=== PATIENT | female | born 1950 | race Caucasian/White ===

== ENCOUNTER → 2016-04-25 | Day surgery (SDC) | payer MEDICARE, OTHER ==
[~2016-04-25] MED LIST: ALBUTEROL SULFATE 2.5 MG/3 ML NEBU. NEB ONE; BUPR100T11 PO; FLUO40CA2 PO; IV RINGERS,LACTATED 1000ML 1,000 ML IV ONE; PROPOFOL 20 ML IV ONE; ZOLP10TA PO
[2016-04-25 13:11] LABS: BASO # 0.1 x10^3/uL (0.0-0.2); BASO % 1 % (0-3); EOS % 2 % (0-3); HEMATOCRIT 39.1 % (36.0-47.0); HEMOGLOBIN 12.8 g/dL (12.0-15.5); LYMPH # 1.2 x10^3/uL (1.0-4.8); LYMPH % 11 % (24-48); MEAN CORPUSCULAR HEMOGLOBIN 31 pg (25-35); MEAN CORPUSCULAR HGB CONC 33 g/dL (31-37); MEAN CORPUSCULAR VOLUME 94 fL (79-100); MONO % 7 % (0-9); NEUT % 79 % (31-73); PLATELET COUNT 434 x10^3/uL (140-400); RED BLOOD COUNT 4.18 x10^6/uL (3.50-5.40); RED CELL DISTRIBUTION WIDTH 13.5 % (11.5-14.5); WHITE BLOOD COUNT 11.1 x10^3/uL (4.0-11.0)
[2016-04-25 13:21] LABS: INR 1.1 (0.8-1.1); PROTHROMBIN TIME PATIENT 13.8 SEC (11.7-14.0)
[2016-04-25 13:58] VITALS: BP 162/88
--- NOTE | 2016-04-25 18:50 | OP ---
DATE OF SURGERY: 04/25/2016 PROCEDURE: Bronchoscopy. INDICATIONS: Lung mass. DESCRIPTION OF PROCEDURE: Informed consent was obtained from the patient. All risks and benefits were explained. She agreed to proceed with the procedure. Propofol was used by anesthesia for sedation. Bronchoscope was introduced through the right nostril. The upper area was passed. Vocal cords moved equally with respiration. The trachea was entered. No tracheal lesions seen. The genevieve was sharp. Right lung was examined first. Minimal white secretions seen in the right main stem bronchus. All subsegments of right upper, right middle and right lower lobe were examined. No endobronchial lesions seen. Bronch was then introduced into the left lung. Upon inspection of the left upper lobe and lingula, the mucosa was severely inflamed and even with the touch of the scope, it was oozing blood. Likewise, the opening of the left lower lobe, mucosa was also severely inflamed and very erythematous. Bronchoalveolar lavage performed from the lingula and from the left lower lobe. Cytology brush x 2 was performed from the lingular opening. Both the openings of left lingula and left lower lobe were narrowed, but no definite endobronchial occlusion seen. The patient tolerated the procedure well. IMPRESSION: 1. Abnormal mucosa involving the lingula and the opening of the left lower lobe. It was severely inflamed and swollen. The possibility of submucosal cancer cannot be ruled out. Cytology brush x 2 and bronchoalveolar lavage from the lingula and left lower lobe were performed. 2. The patient to follow the results of the bronchoscopy with Dr. Ovalle. 3. If the bronchoscopy is nondiagnostic and if radiographic appearance is not improved, then the patient may need CT-guided biopsy. TINO AGOSTO MD DR: MARVA/kandy JOB#: [id number] / [id number]
--- NOTE | 2016-05-01 13:10 | PATHOLOGY ---
CYTOPATHOLOGY REPORT CLINICAL HISTORY: Lung mass. SPECIMEN(S) RECEIVED: A.Bronchoalveolar lavage, Lingula B.Bronchoalveolar lavage, LLL C.Bronchial brushing, NOS D.Bronchial brush rinse, NOS FINAL DIAGNOSIS: A. Lingula bronchoalveolar lavage, ThinPrep: - MALIGNANT CELLS IDENTIFIED HAVING CELLULAR FEATURES OF NON-SMALL CELL CARCINOMA. B. Left lower lobe bronchoalveolar lavage, ThinPrep: - MALIGNANT CELLS IDENTIFIED HAVING CELLULAR FEATURES OF NON-SMALL CELL CARCINOMA. C. Bronchial brushing, smears: - MALIGNANT CELLS IDENTIFIED HAVING CELLULAR FEATURES OF NON-SMALL CELL CARCINOMA. D. Bronchial brush rinse, ThinPrep: - MALIGNANT CELLS IDENTIFIED HAVING CELLULAR FEATURES OF NON-SMALL CELL CARCINOMA. COMMENT: The case is also examined by Dr. Prashanth Hodge, cytopathologist with Pathology, who concurs with the diagnosis. (JPM:; d/t: 05/01/16) PATHOLOGIST: Dario Craig M.D. REPORT ELECTRONICALLY SIGNED BY: Dario Craig M.D. DATE/TIME: 05/01/2016 13:09 GROSS PATHOLOGY: A. Bronchoalveolar lavage, Lingula: The specimen is submitted unfixed, labeled "Tevebaugh, Annajo". Received by the Cytology Department is four mL of clear colorless fluid. One ThinPrep slide was prepared. B. Bronchoalveolar lavage, LLL: The specimen is submitted unfixed, labeled "Tevebaugh, Annajo". Received by the Cytology Department is three mL of clear colorless fluid. One ThinPrep slide was prepared. C. Bronchial brushing, NOS: The specimen is labeled "Tevebaugh, Annajo" and consists of two fixed slides. D. Bronchial brush rinse, NOS: The specimen is labeled "Tevebaugh, Annajo" and consists of a brush tip in fixative. One ThinPrep slide was prepared. (clt 04.25.2016) LEGAL COMPLIANCE OFFICER(S): KAVITHA Colvin([facility]) INITIAL CPT CODE(S): A; 07669 B; 58828 C; 58581 D; 20811 Professional services performed by [facility] at [facility] [address] [place] [address] Technical services performed by [facility] at [address] [place] [address], [address], [place] [address]. PATIENT: TONIO CARROLL /AGE: 10 1950 (Age: 65) SEX: F PATIENT #: [id number] ALT CASE #: SPECIMEN COLLECTION DATE: 04/25/2016 SPECIMEN RECEIVED DATE: 04/25/2016 [facility] [address], [address] [place] [address] PHONE: [phone] DIRECTOR: Ned Quintero M.D. * * * END OF REPORT * * *
== END | disposition home or self-care (01) ==
LOC: SURG 11:46
PROVIDERS: ATTEND Internal Medicine Critical Care Medicine
DX: R91.8 Other nonspecific abnormal finding of lung field (principal); K21.9 Gastro-esophageal reflux disease without esophagitis; F41.9 Anxiety disorder, unspecified; F32.9 Major depressive disorder, single episode, unspecified; Z87.39 Personal history of other diseases of the musculoskeletal system and connective tissue; Z79.01 Long term (current) use of anticoagulants
CPT/HCPCS: 31624; 36415; 85027; 85610; 85730; 87070; 87102; 87116; 87205; 88104; 88112; 94640; J2704; 31622

== ENCOUNTER → 2016-05-02 | Outpatient (CLI) | payer MEDICARE, OTHER ==
[2016-04-25 13:58] VITALS: BP 162/88
[~2016-05-02] MED LIST changes: -ALBUTEROL SULFATE 2.5 MG/3 ML NEBU. NEB ONE; -IV RINGERS,LACTATED 1000ML 1,000 ML IV ONE; -PROPOFOL 20 ML IV ONE
== END | disposition home or self-care (01) ==
LOC: PF 09:47
PROVIDERS: ATTEND Internal Medicine Pulmonary Disease
DX: R06.02 Shortness of breath (principal)
CPT/HCPCS: 94060; 94729

== ENCOUNTER → 2016-05-10 | Outpatient (CLI) | payer MEDICARE, OTHER ==
[~2016-05-10] MED LIST changes: +ALBU0.63 NEB; +FENT1PAT89 TD; +HYDR-2678 PO; +MULT-691 PO; +PROAIR HFA8.5 GM INH
--- NOTE | 2016-05-10 10:15 | RAD ---
Indication lung nodule. PA and lateral views of the chest were obtained. No prior imaging of the chest is available. There are suspect background changes of emphysema. There is moderately extensive infiltrate, compatible with pneumonia, in the left lower lobe. A focal infiltrate in the right lung is not seen. The heart and pulmonary vessels are within normal limits. There may be a small left pleural effusion. Partially atelectatic left lung is suspect. There is some deviation of the trachea to the left. There is moderate compression of an upper thoracic vertebral body segment the chronicity of which is uncertain IMPRESSION: Infiltrate, compatible with pneumonia, in the left lower lobe. Follow-up imaging, to resolution, advised Moderate compression associated with an upper thoracic vertebral body segment the chronicity of which is not certain
[2016-05-18 03:00] VITALS: BP 148/90
== END | disposition home or self-care (01) ==
LOC: PETSC 08:00 → MERGE 05-17 13:00
PROVIDERS: ATTEND Internal Medicine Pulmonary Disease
DX: R91.1 Solitary pulmonary nodule (principal)
CPT/HCPCS: 71020

== ENCOUNTER → 2016-05-10 | Outpatient (CLI) | payer MEDICARE, OTHER ==
[2016-04-25 13:58] VITALS: BP 162/88
[~2016-05-10] MED LIST changes: -ALBU0.63 NEB; -FENT1PAT89 TD; -HYDR-2678 PO; -MULT-691 PO; -PROAIR HFA8.5 GM INH
--- NOTE | 2016-05-10 14:20 | RAD ---
Indication lung nodule. PET/CT was performed from the skull through the proximal thigh. CT was performed primarily for localization and attenuation purposes as opposed to primary diagnostic purposes. Blood sugar during the examination was 92. 13.4 mCi of FDG was administered. No prior PET/CT imaging is available. On CT the visualized brain is unremarkable. No significant finding is apparent in the neck. There is dense consolidation or mass in the left lower lobe measuring approximately 5 cm in greatest dimension. (A mass as opposed to consolidated pneumonia is favored as there are no air bronchograms). There is a patchy infiltrate in the aerated left lower lobe suggesting postobstructive pneumonitis. Moderate narrowing of the left distal mainstem bronchus is noted. There are multiple pulmonary nodules seen in the left upper lobe. Occasional nodules are seen in the right upper lobe. Background emphysematous changes are noted. There are moderately enlarged lymph nodes in the aorticopulmonary window as well as in the pretracheal space. Subcarinal adenopathy is also suggested. There is suggested lytic metastatic disease seen associated with upper thoracic vertebral body segments. A significant finding in the abdomen or pelvis is not seen. On PET there is normal FDG activity in the visualized brain. There are markedly avid FDG lymph nodes at the base of the neck, at each thoracic inlet. Maximum SUV approximately 7.7 . Markedly avid mediastinal lymph nodes are seen. These are seen in the pretracheal space and in the subcarinal space. The mass in the left lower lobe is markedly FDG avid. Maximum SUV is approximately 13. More peripherally in the lower lobe where there is volume loss there is also significant FDG activity. FDG in this area is approximately 11.6. These findings more peripherally in the left lower lobe may represent neoplastic disease infection or combination of the 2. Nodules, seen on CT in the left upper lobe, are moderately FDG avid with SUVs of approximately 3.5. These may be infectious or neoplastic in nature. There are scattered foci of FDG activity in the visualized skeleton. There is a focus of increased FDG activity in the left humeral head as well as in at least 2 upper thoracic vertebral body segments. There is markedly increased uptake in a right lower lateral rib suggesting metastatic disease. Both adrenal glands are markedly FDG avid compatible with metastatic disease. There are foci of increased activity behind the body of the stomach likely reflecting metastatic disease in lymph nodes. Several foci of increased activity are seen in the bony pelvis and lumbar spine compatible with metastatic disease. There is significantly increased activity in the body of the stomach. The etiology for this uptake is not certain. IMPRESSION: Findings most compatible with a large primary neoplasm in the left lower lobe with widespread metastatic disease to the mediastinum, bones, adrenal glands and abdominal lymph nodes. Increased FDG activity distal to the solid mass in the left lower lobe may represent tumor, infection or a combination of the two
== END | disposition home or self-care (01) ==
LOC: PETSC 11:00
PROVIDERS: ATTEND Internal Medicine Pulmonary Disease
DX: C78.1 Secondary malignant neoplasm of mediastinum (principal)
CPT/HCPCS: 78815; A9552

== ENCOUNTER 2016-05-17 15:17 | Inpatient (IN) | payer MEDICARE, OTHER ==
[~2016-05-17] VITALS: Ht 162.6 cm; Wt 58.3 kg
[~2016-05-17 15:17] MED LIST changes: +ALBU0.63 NEB; +FENT1PAT89 TD; +HYDR-2678 PO; +PROAIR HFA8.5 GM INH
[2016-05-17] MEDS ORDERED: IV NORMAL SALINE 1000ML BAG 1,000 ML IV SCH (15:44)
[2016-05-17] MEDS ORDERED: IPRATRPIUM/ALBUTEROL 0.5/2.5MG 3 ML NEBU. NEB ONE (15:45)
[2016-05-17] MEDS ORDERED: methylPREDNISolone SOD SUCC PF 125 MG/2 ML VIAL. IV ONE (15:45)
--- NOTE | 2016-05-17 15:50 | PHYS DOC ---
Past Medical History Past Medical History: Anxiety, Bronchitis, Cancer, COPD, Depression Additional Past Medical Histor: stage 4 lung cancer Past Surgical History: Tonsillectomy Alcohol Use: None Drug Use: None Adult General Chief Complaint Chief Complaint: SHORTNESS OF BREATH HPI HPI Patient is a 65 year old female who presents with complaint shortness of breath. Patient states her symptoms started worsening yesterday. Patient states that she is recently diagnosed with lung carcinoma and has been following with Dr. Williamson. Patient presented to Dr. Williamson's office with significant shortness of breath. Patient was found to be hypoxic on room air and was sent to the emergency department for further treatment. The patient admits to a 50-pack- year history of tobacco use. Patient also states that she was recently diagnosed with emphysema. Patient has not had any fevers. Patient has had nonproductive cough. Patient denies pain at rest but states that with movement she has been having pain along the upper portion of her abdomen. Patient has not taken any medications to help with her symptoms. Review of Systems Review of Systems Constitutional: Denies fever or chills [] Eyes: Denies change in visual acuity, redness, or eye pain [] HENT: Denies nasal congestion or sore throat [] Respiratory: Cough, shortness of breath [] Cardiovascular: Denies chest pain or edema [] GI: Abdominal pain, denies nausea, vomiting, bloody stools or diarrhea [] : Denies dysuria or hematuria [] Musculoskeletal: Denies back pain or joint pain [] Integument: Denies rash or skin lesions [] Neurologic: Denies headache, focal weakness or sensory changes [] Current Medications Current Medications Current Medications Medications (Trade) Dose Ordered Sig/Yaz Start Time Stop Time Status Last Admin Dose Admin Acetaminophen/ Hydrocodone Bitart (Lortab 5/325) may give max of 8 pills/day PRN Q4HRS PRN 05/17/16 16:15 05/17/16 16:34 2 TAB Albuterol/ Ipratropium (Duoneb) 3 ml RTQID 05/17/16 20:00 05/18/16 19:59 Methylprednisolone Sodium Succinate (Solu-Medrol 40mg Vial) 60 mg Q6HRS 05/17/16 18:00 Methylprednisolone Sodium Succinate (Solu-Medrol 125mg Vial) 125 mg 1X ONCE 05/17/16 15:45 05/17/16 15:49 DC 05/17/16 16:05 125 MG Ondansetron HCl 4 mg 4 mg PRN Q8HRS PRN 05/17/16 17:00 05/18/16 16:59 Sodium Chloride (Iv Sodium Chloride 0.9% 1000ml Bag) 1,000 ml @ 100 mls/hr Q10H 05/17/16 16:46 05/18/16 16:45 Allergies Allergies Allergies Coded Allergies Type Severity Reaction Last Updated Verified No Known Drug Allergies 04/25/16 No Physical Exam Physical Exam Constitutional: Alert, afebrile, appears in mild respiratory distress. [] HENT: Normocephalic, atraumatic, bilateral external ears normal, oropharynx moist, no oral exudates, nose normal. [] Eyes: PERRLA, EOMI, conjunctiva normal, no discharge. [] Neck: Normal range of motion, no tenderness, supple, no stridor. [] Cardiovascular: Tachycardia, regular rhythm, no murmur [] Lungs & Thorax: Moderate restriction of air movement bilaterally, expiratory wheezes bilaterally, no rales [] Abdomen: Bowel sounds normal, soft, mild epigastric tenderness to palpation, no guarding or rebound tenderness, no masses, no pulsatile masses. [] Skin: Warm, dry, no erythema, no rash. [] Back: No tenderness, no CVA tenderness. [] Extremities: No tenderness, no cyanosis, no clubbing, ROM intact, no edema. [] Neurologic: Alert and oriented X 3, normal motor function, normal sensory function, no focal deficits noted. [] Current Patient Data Vital Signs Vital Signs Date Time Temp Pulse Resp B/P Pulse Ox O2 Delivery O2 Flow Rate FiO2 05/17/16 16:30 98 20 193/91 94 Nasal Cannula 2 05/17/16 15:33 98.1 98.1 Lab Values Laboratory Tests Test 05/17/16 13:55 05/17/16 15:59 White Blood Count 18.6x10^3/uL (4.0-11.0) H Red Blood Count 3.73x10^6/uL (3.50-5.40) Hemoglobin 11.3g/dL (12.0-15.5) L Hematocrit 35.2% (36.0-47.0) L Mean Corpuscular Volume 94fL (79-100) Mean Corpuscular Hemoglobin 30pg (25-35) Mean Corpuscular Hemoglobin Concent 32g/dL (31-37) Red Cell Distribution Width 14.1% (11.5-14.5) Platelet Count 433x10^3/uL (140-400) H Neutrophils (%) (Auto) 87% (31-73) H Lymphocytes (%) (Auto) 6% (24-48) L Monocytes (%) (Auto) 7% (0-9) Eosinophils (%) (Auto) 1% (0-3) Basophils (%) (Auto) 0% (0-3) Neutrophils # (Auto) 16.1x10^3uL (1.8-7.7) H Lymphocytes # (Auto) 1.0x10^3/uL (1.0-4.8) Monocytes # (Auto) 1.3x10^3/uL (0.0-1.1) H Eosinophils # (Auto) 0.1x10^3/uL (0.0-0.7) Basophils # (Auto) 0.1x10^3/uL (0.0-0.2) Segmented Neutrophils % 84% (35-66) H Band Neutrophils % 2% (0-9) Lymphocytes % 7% (24-48) L Monocytes % 4% (0-10) Eosinophils % 1% (0-5) Basophils % 2% (0-3) Platelet Estimate Increased (ADEQUATE) Sodium Level 138mmol/L (136-145) Potassium Level 4.2mmol/L (3.5-5.1) Chloride Level 102mmol/L (98-107) Carbon Dioxide Level 25mmol/L (21-32) Anion Gap 11 (6-14) Blood Urea Nitrogen 21mg/dL (7-20) H Creatinine 1.0mg/dL (0.6-1.0) Estimated GFR (Cockcroft-Gault) 55.5 BUN/Creatinine Ratio 21 (6-20) H Glucose Level 105mg/dL (70-99) H Lactic Acid Level 1.4mmol/L (0.4-2.0) Calcium Level 9.4mg/dL (8.5-10.1) Total Bilirubin 0.3mg/dL (0.2-1.0) Aspartate Amino Transferase (AST) 101U/L (15-37) H Alanine Aminotransferase (ALT) 88U/L (14-59) H Alkaline Phosphatase 207U/L (46-116) H Total Protein 6.0g/dL (6.4-8.2) L Albumin 2.2g/dL (3.4-5.0) L Albumin/Globulin Ratio 0.6 (1.0-1.7) L Lipase 57U/L (73-393) L Influenza Type A Antigen Negative (NEGATIVE) Influenza Type B Antigen Negative (NEGATIVE) Laboratory Tests 05/17/16 13:55 Laboratory Tests 05/17/16 13:55 EKG EKG Interpreted by me: Heart rate 100 bpm, sinus tachycardia, normal intervals, normal axis, no acute ST/T-wave abnormalities present [] Radiology/Procedures Radiology/Procedures [facility] [address] [place] [address] IMAGING REPORT Signed PATIENT: TONIO CARROLL ACCOUNT: [id number] : 1950 LOCATION: ER AGE: 65 SEX: F EXAM STATUS: PRE ER ORD. PHYSICIAN: TED CELESTE MD REASON: shortness of breath,17 PROCEDURE: PORTABLE CHEST 1V Portable chest, 05/17/2016: History: Shortness of breath, lung cancer Comparison is made to a study from 05/10/2016. The heart size is within normal limits. There is a persistent mass effect at the left hilum in this patient with a history of lung cancer. There are left parahilar and lower chest infiltrates which appear to have worsened slightly. There is mild volume loss on the left. No definite right lung infiltrate is seen. There is no evidence of pleural fluid. IMPRESSION: Worsening moderate patchy left lung infiltrates. DICTATED and SIGNED BY: BASILIO VARGAS MD DATE: 05/17/16 0206 CC: TED CELESTE MD; GURU SHEPARD ~ [] Course & Med Decision Making Course & Med Decision Making Pertinent Labs and Imaging studies reviewed. (See chart for details) The patient was able to hold stable at 3 L/m of O2 per nasal cannula with oxygen saturation of 95%. The patient was started on DuoNeb treatments and IV Solu-Medrol. Patient's chest x-ray shows worsening infiltrates in the left upper and lower lobe. Patient started on IV Levaquin for treatment. The patient will need to be admitted the hospital for treatment of acute hypoxic respiratory failure and community-acquired pneumonia. I spoke with Dr. Bunn who accepted care patient in hospital. Consults were placed to Dr. Ovalle of pulmonology and Dr. Williamson of oncology to follow patient in hospital. Dragon Disclaimer Dragon Disclaimer This electronic medical record was generated, in whole or in part, using a voice recognition dictation system. Departure Departure Impression: Primary Impression: Acute respiratory failure with hypoxia Additional Impressions: Community acquired pneumonia Sepsis Metastatic lung carcinoma Severe protein-calorie malnutrition Disposition: ADMITTED INPATIENT Admitting Physician: Rip Bunn Condition: GUARDED Referrals: GURU SHEPARD (PCP) Problem Qualifiers Additional Impressions: Sepsis Sepsis type: sepsis due to unspecified organism Qualified Code: A41.9 - Sepsis, unspecified organism Metastatic lung carcinoma Laterality: left Qualified Code: C78.02 - Secondary malignant neoplasm of left lung TED CELESTE MD May 17, 2016 15:50
[2016-05-17 16:05] LABS: BASO # 0.1 x10^3/uL (0.0-0.2); BASO % 0 % (0-3); EOS % 1 % (0-3); HEMATOCRIT 35.2 % (36.0-47.0); HEMOGLOBIN 11.3 g/dL (12.0-15.5); LYMPH % 6 % (24-48); MEAN CORPUSCULAR HEMOGLOBIN 30 pg (25-35); MEAN CORPUSCULAR HGB CONC 32 g/dL (31-37); MEAN CORPUSCULAR VOLUME 94 fL (79-100); MONO % 7 % (0-9); NEUT % 87 % (31-73); PLATELET COUNT 433 x10^3/uL (140-400); RED BLOOD COUNT 3.73 x10^6/uL (3.50-5.40); RED CELL DISTRIBUTION WIDTH 14.1 % (11.5-14.5); WHITE BLOOD COUNT 18.6 x10^3/uL (4.0-11.0)
[2016-05-17 16:27] LABS: OBC FLU VALID
[2016-05-17 16:28] LABS: CALCIUM 9.4 mg/dL (8.5-10.1); GFR 55.5; POTASSIUM 4.2 mmol/L (3.5-5.1)
--- NOTE | 2016-05-17 16:29 | RAD ---
Portable chest, 05/17/2016: History: Shortness of breath, lung cancer Comparison is made to a study from 05/10/2016. The heart size is within normal limits. There is a persistent mass effect at the left hilum in this patient with a history of lung cancer. There are left parahilar and lower chest infiltrates which appear to have worsened slightly. There is mild volume loss on the left. No definite right lung infiltrate is seen. There is no evidence of pleural fluid. IMPRESSION: Worsening moderate patchy left lung infiltrates.
[2016-05-17 16:33] LABS: ALBUMIN 2.2 g/dL (3.4-5.0); ALBUMIN/GLOBULIN RATIO 0.6 (1.0-1.7); TOTAL BILIRUBIN 0.3 mg/dL (0.2-1.0)
[2016-05-17] MEDS: HYDROCODONE/APAP 5/325MG TABLET. PO PRN ×2 (16:34→22:07)
[2016-05-17 16:45] LABS: % BASOS 2 % (0-3); % EOS 1 % (0-5); PLT ESTIMATE INCREASED (ADEQUATE)
[2016-05-17] MEDS ORDERED: ONDANSETRON PF 4 MG/2 ML VIAL. IV PRN (17:00)
[2016-05-17] MEDS ORDERED: LEVOFLOXACIN PER PHARMACY MC PRN (17:15)
[2016-05-17 18:46] LABS: BILIRUBIN,URINE NEGATIVE (NEG); GLUCOSE,URINE NEGATIVE (NEG); NITRITE,URINE NEGATIVE (NEG); PROTEIN,URINE NEGATIVE (NEG-TRACE)
[2016-05-17 18:53] LABS: BACTERIA,URINE 0 /HPF (0-FEW); WBC,URINE OCC /HPF (0-4)
[2016-05-17 18:54] LABS: SQUAMOUS EPITHELIAL CELL,UR FEW /LPF
[2016-05-17] MEDS: IPRATRPIUM/ALBUTEROL 0.5/2.5MG 3 ML NEBU. NEB SCH (20:28)
[2016-05-17 21:00] VITALS: BP 166/80
[2016-05-17] MEDS: IV NORMAL SALINE 1000ML BAG 1,000 ML IV SCH (22:07)
[2016-05-17] MEDS: methylPREDNISolone SOD SUCC PF 40 MG/ML VIAL. IV SCH (22:07)
[2016-05-17 23:00] VITALS: BP 152/87
[2016-05-17] MEDS ORDERED: ZOLPIDEM 5 MG TABLET. PO PRN (23:00)
[2016-05-17] MEDS ORDERED: FENTANYL 12 MCG/HR TD SCH (23:00)
[2016-05-17] MEDS: ZOLPIDEM 5 MG TABLET. PO SCH (23:16)
[2016-05-18] VITALS (11 sets, daily range): BP systolic 135–179; BP diastolic 75–98
[2016-05-18] MEDS: methylPREDNISolone SOD SUCC PF 40 MG/ML VIAL. IV SCH ×4 (00:29→18:08)
[2016-05-18 04:58] LABS: CALCIUM 9.2 mg/dL (8.5-10.1); CREATININE 0.8 mg/dL (0.6-1.0); GFR 71.8; POTASSIUM 3.9 mmol/L (3.5-5.1)
[2016-05-18] MEDS: HYDROCODONE/APAP 5/325MG TABLET. PO PRN ×2 (06:01→23:22)
--- NOTE | 2016-05-18 06:23 | EKG ---
[facility] [address] [place] [address] Test Date: 2016-05-17 Test Time: 16:03:13 Pat Name: TONIO CARROLL Department: Room: 8 Gender: F Outside Sales: : 1950 Requested By: TED CELESTE Order Number: [id number] Reading MD: Kiki Kulkarni Measurements Intervals Turney Rate: 100 P: 36 WA: 116 QRS: 38 QRSD: 88 T: 36 QT: 324 QTc: 421 Interpretive Statements SINUS RHYTHM LEFT ATRIAL ABNORMALITY ABNORMAL ECG RI6.01 No previous ECG available for comparison Electronically Signed On 05-20-2016 18:45:10 CDT by Kiki Kulkarni
[2016-05-18 06:54] LABS: BASO % 0 % (0-3); EOS % 0 % (0-3); HEMATOCRIT 31.9 % (36.0-47.0); HEMOGLOBIN 10.5 g/dL (12.0-15.5); LYMPH # 0.5 x10^3/uL (1.0-4.8); LYMPH % 3 % (24-48); MEAN CORPUSCULAR HEMOGLOBIN 31 pg (25-35); MEAN CORPUSCULAR HGB CONC 33 g/dL (31-37); MEAN CORPUSCULAR VOLUME 95 fL (79-100); MONO % 2 % (0-9); NEUT % 95 % (31-73); PLATELET COUNT 412 x10^3/uL (140-400); RED BLOOD COUNT 3.36 x10^6/uL (3.50-5.40); RED CELL DISTRIBUTION WIDTH 13.8 % (11.5-14.5); WHITE BLOOD COUNT 19.1 x10^3/uL (4.0-11.0)
[2016-05-18 08:30] LABS: INR 1.3 (0.8-1.1); PROTHROMBIN TIME PATIENT 15.6 SEC (11.7-14.0)
[2016-05-18] MEDS: IPRATRPIUM/ALBUTEROL 0.5/2.5MG 3 ML NEBU. NEB SCH ×3 (08:30→16:24)
[2016-05-18] MEDS: FLUOXETINE HCL 20 MG CAPSULE PO SCH (09:00)
[2016-05-18] MEDS: buPROPion 100 MG TABLET PO SCH (09:00)
--- NOTE | 2016-05-18 09:01 | PDOC ---
PULMONARY PROGRESS NOTES Vitals Vital Signs Date Time Temp Pulse Resp B/P Pulse Ox O2 Delivery O2 Flow Rate FiO2 05/18/16 08:33 92 Nasal Cannula 4.0 05/18/16 07:00 97.5 101 16 165/88 97.5 Labs Laboratory Tests Test 05/17/16 13:55 05/17/16 15:59 05/17/16 18:36 05/18/16 03:30 White Blood Count 18.6x10^3/uL (4.0-11.0) Red Blood Count 3.73x10^6/uL (3.50-5.40) Hemoglobin 11.3g/dL (12.0-15.5) Hematocrit 35.2% (36.0-47.0) Mean Corpuscular Volume 94fL (79-100) Mean Corpuscular Hemoglobin 30pg (25-35) Mean Corpuscular Hemoglobin Concent 32g/dL (31-37) Red Cell Distribution Width 14.1% (11.5-14.5) Platelet Count 433x10^3/uL (140-400) Neutrophils (%) (Auto) 87% (31-73) Lymphocytes (%) (Auto) 6% (24-48) Monocytes (%) (Auto) 7% (0-9) Eosinophils (%) (Auto) 1% (0-3) Basophils (%) (Auto) 0% (0-3) Neutrophils # (Auto) 16.1x10^3uL (1.8-7.7) Lymphocytes # (Auto) 1.0x10^3/uL (1.0-4.8) Monocytes # (Auto) 1.3x10^3/uL (0.0-1.1) Eosinophils # (Auto) 0.1x10^3/uL (0.0-0.7) Basophils # (Auto) 0.1x10^3/uL (0.0-0.2) Segmented Neutrophils % 84% (35-66) Band Neutrophils % 2% (0-9) Lymphocytes % 7% (24-48) Monocytes % 4% (0-10) Eosinophils % 1% (0-5) Basophils % 2% (0-3) Platelet Estimate Increased (ADEQUATE) Sodium Level 138mmol/L (136-145) 144mmol/L (136-145) Potassium Level 4.2mmol/L (3.5-5.1) 3.9mmol/L (3.5-5.1) Chloride Level 102mmol/L (98-107) 109mmol/L (98-107) Carbon Dioxide Level 25mmol/L (21-32) 23mmol/L (21-32) Anion Gap 11 (6-14) 12 (6-14) Blood Urea Nitrogen 21mg/dL (7-20) 16mg/dL (7-20) Creatinine 1.0mg/dL (0.6-1.0) 0.8mg/dL (0.6-1.0) Estimated GFR (Cockcroft-Gault) 55.5 71.8 BUN/Creatinine Ratio 21 (6-20) Glucose Level 105mg/dL (70-99) 142mg/dL (70-99) Lactic Acid Level 1.4mmol/L (0.4-2.0) Calcium Level 9.4mg/dL (8.5-10.1) 9.2mg/dL (8.5-10.1) Total Bilirubin 0.3mg/dL (0.2-1.0) Aspartate Amino Transf (AST/SGOT) 101U/L (15-37) Alanine Aminotransferase (ALT/SGPT) 88U/L (14-59) Alkaline Phosphatase 207U/L (46-116) Total Protein 6.0g/dL (6.4-8.2) Albumin 2.2g/dL (3.4-5.0) Albumin/Globulin Ratio 0.6 (1.0-1.7) Lipase 57U/L (73-393) Influenza Type A Antigen Negative (NEGATIVE) Influenza Type B Antigen Negative (NEGATIVE) Urine Collection Type Unknown Urine Color Yellow Urine Clarity Clear Urine pH 6.0 Urine Specific [place] 1.010 Urine Protein Negativemg/dL (NEG-TRACE) Urine Glucose (UA) Negativemg/dL (NEG) Urine Ketones (Stick) Negativemg/dL (NEG) Urine Blood Small (NEG) Urine Nitrite Negative (NEG) Urine Bilirubin Negative (NEG) Urine Urobilinogen Dipstick 1.0mg/dL (0.2 mg/dL) Urine Leukocyte Esterase Negative (NEG) Urine RBC 1-2/HPF (0-2) Urine WBC Occ/HPF (0-4) Urine Squamous Epithelial Cells Few/LPF Urine Bacteria 0/HPF (0-FEW) Urine Hyaline Casts Few/HPF Urine Mucus Slight/LPF Test 05/18/16 04:00 05/18/16 08:05 White Blood Count 19.1x10^3/uL (4.0-11.0) Red Blood Count 3.36x10^6/uL (3.50-5.40) Hemoglobin 10.5g/dL (12.0-15.5) Hematocrit 31.9% (36.0-47.0) Mean Corpuscular Volume 95fL (79-100) Mean Corpuscular Hemoglobin 31pg (25-35) Mean Corpuscular Hemoglobin Concent 33g/dL (31-37) Red Cell Distribution Width 13.8% (11.5-14.5) Platelet Count 412x10^3/uL (140-400) Neutrophils (%) (Auto) 95% (31-73) Lymphocytes (%) (Auto) 3% (24-48) Monocytes (%) (Auto) 2% (0-9) Eosinophils (%) (Auto) 0% (0-3) Basophils (%) (Auto) 0% (0-3) Neutrophils # (Auto) 18.1x10^3uL (1.8-7.7) Lymphocytes # (Auto) 0.5x10^3/uL (1.0-4.8) Monocytes # (Auto) 0.4x10^3/uL (0.0-1.1) Eosinophils # (Auto) 0.0x10^3/uL (0.0-0.7) Basophils # (Auto) 0.0x10^3/uL (0.0-0.2) Prothrombin Time 15.6SEC (11.7-14.0) Prothromb Time International Ratio 1.3 (0.8-1.1) Laboratory Tests Test 05/17/16 13:55 05/17/16 15:59 05/17/16 18:36 05/18/16 03:30 White Blood Count 18.6x10^3/uL (4.0-11.0) Red Blood Count 3.73x10^6/uL (3.50-5.40) Hemoglobin 11.3g/dL (12.0-15.5) Hematocrit 35.2% (36.0-47.0) Mean Corpuscular Volume 94fL (79-100) Mean Corpuscular Hemoglobin 30pg (25-35) Mean Corpuscular Hemoglobin Concent 32g/dL (31-37) Red Cell Distribution Width 14.1% (11.5-14.5) Platelet Count 433x10^3/uL (140-400) Neutrophils (%) (Auto) 87% (31-73) Lymphocytes (%) (Auto) 6% (24-48) Monocytes (%) (Auto) 7% (0-9) Eosinophils (%) (Auto) 1% (0-3) Basophils (%) (Auto) 0% (0-3) Neutrophils # (Auto) 16.1x10^3uL (1.8-7.7) Lymphocytes # (Auto) 1.0x10^3/uL (1.0-4.8) Monocytes # (Auto) 1.3x10^3/uL (0.0-1.1) Eosinophils # (Auto) 0.1x10^3/uL (0.0-0.7) Basophils # (Auto) 0.1x10^3/uL (0.0-0.2) Segmented Neutrophils % 84% (35-66) Band Neutrophils % 2% (0-9) Lymphocytes % 7% (24-48) Monocytes % 4% (0-10) Eosinophils % 1% (0-5) Basophils % 2% (0-3) Platelet Estimate Increased (ADEQUATE) Sodium Level 138mmol/L (136-145) 144mmol/L (136-145) Potassium Level 4.2mmol/L (3.5-5.1) 3.9mmol/L (3.5-5.1) Chloride Level 102mmol/L (98-107) 109mmol/L (98-107) Carbon Dioxide Level 25mmol/L (21-32) 23mmol/L (21-32) Anion Gap 11 (6-14) 12 (6-14) Blood Urea Nitrogen 21mg/dL (7-20) 16mg/dL (7-20) Creatinine 1.0mg/dL (0.6-1.0) 0.8mg/dL (0.6-1.0) Estimated GFR (Cockcroft-Gault) 55.5 71.8 BUN/Creatinine Ratio 21 (6-20) Glucose Level 105mg/dL (70-99) 142mg/dL (70-99) Lactic Acid Level 1.4mmol/L (0.4-2.0) Calcium Level 9.4mg/dL (8.5-10.1) 9.2mg/dL (8.5-10.1) Total Bilirubin 0.3mg/dL (0.2-1.0) Aspartate Amino Transf (AST/SGOT) 101U/L (15-37) Alanine Aminotransferase (ALT/SGPT) 88U/L (14-59) Alkaline Phosphatase 207U/L (46-116) Total Protein 6.0g/dL (6.4-8.2) Albumin 2.2g/dL (3.4-5.0) Albumin/Globulin Ratio 0.6 (1.0-1.7) Lipase 57U/L (73-393) Influenza Type A Antigen Negative (NEGATIVE) Influenza Type B Antigen Negative (NEGATIVE) Urine Collection Type Unknown Urine Color Yellow Urine Clarity Clear Urine pH 6.0 Urine Specific [place] 1.010 Urine Protein Negativemg/dL (NEG-TRACE) Urine Glucose (UA) Negativemg/dL (NEG) Urine Ketones (Stick) Negativemg/dL (NEG) Urine Blood Small (NEG) Urine Nitrite Negative (NEG) Urine Bilirubin Negative (NEG) Urine Urobilinogen Dipstick 1.0mg/dL (0.2 mg/dL) Urine Leukocyte Esterase Negative (NEG) Urine RBC 1-2/HPF (0-2) Urine WBC Occ/HPF (0-4) Urine Squamous Epithelial Cells Few/LPF Urine Bacteria 0/HPF (0-FEW) Urine Hyaline Casts Few/HPF Urine Mucus Slight/LPF Test 05/18/16 04:00 05/18/16 08:05 White Blood Count 19.1x10^3/uL (4.0-11.0) Red Blood Count 3.36x10^6/uL (3.50-5.40) Hemoglobin 10.5g/dL (12.0-15.5) Hematocrit 31.9% (36.0-47.0) Mean Corpuscular Volume 95fL (79-100) Mean Corpuscular Hemoglobin 31pg (25-35) Mean Corpuscular Hemoglobin Concent 33g/dL (31-37) Red Cell Distribution Width 13.8% (11.5-14.5) Platelet Count 412x10^3/uL (140-400) Neutrophils (%) (Auto) 95% (31-73) Lymphocytes (%) (Auto) 3% (24-48) Monocytes (%) (Auto) 2% (0-9) Eosinophils (%) (Auto) 0% (0-3) Basophils (%) (Auto) 0% (0-3) Neutrophils # (Auto) 18.1x10^3uL (1.8-7.7) Lymphocytes # (Auto) 0.5x10^3/uL (1.0-4.8) Monocytes # (Auto) 0.4x10^3/uL (0.0-1.1) Eosinophils # (Auto) 0.0x10^3/uL (0.0-0.7) Basophils # (Auto) 0.0x10^3/uL (0.0-0.2) Prothrombin Time 15.6SEC (11.7-14.0) Prothromb Time International Ratio 1.3 (0.8-1.1) Medications Active Scripts Medications Dose Route/Sig Days Date Category Albuterol Sulfate Neb Soln (Albuterol Sulfate) 0.63 Mg/3 Ml Vial.neb 0.63 Mg NEB PRN Q4HRS PRN 05/17/16 Reported Proair Hfa Inhaler (Albuterol Sulfate) 8.5 Gm Hfa.aer.ad 1 Puff INH PRN Q6HRS PRN 05/17/16 Reported Lortab 5-325 mg Tablet (Hydrocodone/Acetaminophen) 1 Each Tablet 1-2 Tab PO Q4HRS PRN 05/17/16 Reported DURAGESIC 12mcg/hr (Fentanyl) 1 Each Patch.td72 1 Patch TD Q72H 05/17/16 Reported Bupropion Hcl 100 Mg Tablet 100 Mg PO 04/25/16 Reported Fluoxetine Hcl 40 Mg Capsule 60 Mg PO DAILY 04/25/16 Reported Ambien (Zolpidem Tartrate) 10 Mg Tablet 1 Tab PO QHS 04/25/16 Reported Impression . Stage IV bronchogenic CA rule out PET Thanks SARWAT ZUÑIGA MD May 18, 2016 09:00
--- NOTE | 2016-05-18 09:47 | PDOC2 ---
CONSULT Date of Consult Date of Consult DATE: 05/18/16 TIME: 09:42 History of Present Illness Reason for Visit: HEMATOLOGY/ONCOLOGY CONSULTATION REPORT: CONSULTATION REQUESTED BY: Dr Carlos Hidalgo REASON FOR CONSULTATION: Stage IV, NSCLC, LLLof lung diagnosed 04/25/2016 La Nena Hart is a 65 y.o. female. No matching staging information was found for the patient. History of Present Illness Ms. La Nena Hart is a 65-year-old female, who noticed increasing cough, wheezing, and shortness of breath in February of 2016. She was evaluated by her primary care physician and treated for pneumonia in March of 2016. She reports that she received antibiotics with Z-Ankit and then doxycycline. She had persistent symptoms and she underwent a chest x-ray that revealed a left lung mass, this was further investigated with a CT scan of the chest on 2016, which revealed a 6 cm soft tissue mass in the superior segment of the left lower lobe involving the hilum suggestive of a primary lung cancer. There were satellite nodules noted in the left lower part of the lung in addition to bilateral smaller nodules. This was concerning for pulmonary metastatic disease. Mediastinal lymphadenopathy was also noted and there is a T6 vertebral compression fracture thought to be pathologic. She was then evaluated by Dr. Delfin Ovalle and the patient underwent a bronchoscopy by Dr. Rapp on 04/25/2016. Bronchoscopy revealed abnormal mucosa involving the lingula and opening of the left lower lobe. Cytology brushing and bronchoalveolar lavage was done, which revealed malignant cells having features of non-small cell carcinoma. No biopsy was performed. She underwent further investigation with a PET scan on 05/10/2016 and this revealed large primary neoplasm in the left lower lobe of the lung with metastatic disease to the mediastinum bones, adrenal gland, and abdominal lymph nodes. She also underwent a bone scan on 05/08/2016 that revealed increased activity in the mid lumbar spine, T6 vertebral compression fracture. Activity in the right mid humerus, which could be traumatic or metastatic. She was evaluated by Dr. Jacob Last from [facility] on 05/16/2016 and considering the patient's symptoms, Dr. Last planned to initiate palliative radiation therapy to T6 vertebrae and also to her primary lesion to reduce wheezing and improve dyspnea. Past medical history: Anxiety, depression, gastroesophageal reflux disease, upper endoscopy and dilation of a stricture, COPD, tonsillectomy, basal cell carcinoma removed from her back. Family history: Mother from lung cancer at the age of 73. Social history: She is . She has three children. She smoked from the age of 14 to 65, half a pack a day and she quit in March of 2016. Current Problem List Problem List Problems Medical Problems: (1) Acute respiratory failure with hypoxia Status: Acute (2) Community acquired pneumonia Status: Acute (3) Metastatic lung carcinoma Status: Acute (4) Sepsis Status: Acute (5) Severe protein-calorie malnutrition Status: Acute Current Medications Current Medications Current Medications Sodium Chloride (Iv Sodium Chloride 0.9% 1000ml Bag) 1,000 ml @ 1,000 mls/hr Q1H IV Last administered on 05/17/16 16:05; Start 05/17/16 at 15:44; Stop at 16:43; Status DC Albuterol/ Ipratropium (Duoneb) 6 ml 1X ONCE NEB Last administered on 16:11; Start 05/17/16 at 15:45; Stop 05/17/16 at 15:49; Status DC Methylprednisolone Sodium Succinate (Solu-Medrol 125mg Vial) 125 mg 1X ONCE IV Last administered on 05/17/16 16:05; Start 05/17/16 at 15:45; Stop 05/17/16 at 15:49; Status DC Acetaminophen/ Hydrocodone Bitart (Lortab 5/325) may give max of 8 pills/day PRN Q4HRS PRN PO PAIN Last administered on 05/18/16 06:01; Start 05/17/16 at 16:15 Ondansetron HCl 4 mg 4 mg PRN Q8HRS PRN IV NAUSEA/VOMITING; Start 05/17/16 at 17:00; Stop 05/18/16 at 16:59 Sodium Chloride (Iv Sodium Chloride 0.9% 1000ml Bag) 1,000 ml @ 100 mls/hr Q10H IV Last administered on 05/17/16 22:07; Start 05/17/16 at 16:46; Stop at 16:45 Albuterol/ Ipratropium (Duoneb) 3 ml RTQID NEB Last administered on 05/18/16 08:30; Start 05/17/16 at 20:00; Stop 05/18/16 at 19:59 Methylprednisolone Sodium Succinate (Solu-Medrol 40mg Vial) 60 mg Q6HRS IV Last administered on 05/18/16 06:02; Start 05/17/16 at 18:00 Levofloxacin/ Dextrose 1 each 1 each PRN DAILY PRN MC SEE COMMENTS; Start 05/17 at 17:15 Levofloxacin/ Dextrose (LEVAQUIN 750mg PREMIX) 150 ml @ 100 mls/hr Q24H IV Last administered on 05/17/16 18:00; Start 05/17/16 at 18:00 Fentanyl (Duragesic 12mcg/ Hr Patch) 1 patch Q72H TD Last administered on 23:17; Start 05/17/16 at 23:00 Fluoxetine HCl (Prozac) 60 mg DAILY PO ; Start 05/18/16 at 09:00 Zolpidem Tartrate (Ambien) 5 mg PRN QHS PRN PO INSOMNIA; Start 05/17/16 at 23: 00 Bupropion HCl (Wellbutrin) 100 mg DAILY PO ; Start 05/18/16 at 09:00 Zolpidem Tartrate (Ambien) 5 mg QHS PO Last administered on 05/17/16 23:16; Start 05/17/16 at 23:00 Active Scripts Active Reported Albuterol Sulfate Neb Soln (Albuterol Sulfate) 0.63 Mg/3 Ml Vial.neb 0.63 Mg NEB PRN Q4HRS PRN Proair Hfa Inhaler (Albuterol Sulfate) 8.5 Gm Hfa.aer.ad 1 Puff INH PRN Q6HRS PRN Lortab 5-325 mg Tablet (Hydrocodone/Acetaminophen) 1 Each Tablet 1-2 Tab PO Q4HRS PRN DURAGESIC 12mcg/hr (Fentanyl) 1 Each Patch.td72 1 Patch TD Q72H Bupropion Hcl 100 Mg Tablet 100 Mg PO Fluoxetine Hcl 40 Mg Capsule 60 Mg PO DAILY Ambien (Zolpidem Tartrate) 10 Mg Tablet 1 Tab PO QHS Allergies Allergies: Coded Allergies: No Known Drug Allergies (Unverified , 04/25/16) ROS Review of System 12 point ROS done, pertinent positives as in HPI and rest neg Physical Exam Physical Exam Physical Exam Constitutional: She is oriented to person, place, and time. She appears well- developed and well-nourished. HENT: Head: Normocephalic and atraumatic. Eyes: EOM are normal. Pupils are equal, round, and reactive to light. Neck: Neck supple. Cardiovascular: Normal rate and normal heart sounds. Pulmonary/Chest: Effort normal and breath sounds normal. Has wheezing Abdominal: Soft. There is no tenderness. Musculoskeletal: She exhibits no tenderness. Neurological: She is alert and oriented to person, place, and time. Skin: Skin is warm and dry. Psychiatric: She has a normal mood and affect. Lymphatics - no evidence of lymphadenopathy Vitals VITALS Vital Signs Date Time Temp Pulse Resp B/P Pulse Ox O2 Delivery O2 Flow Rate FiO2 05/18/16 08:33 92 Nasal Cannula 4.0 05/18/16 07:00 97.5 101 16 165/88 97.5 Labs Labs Laboratory Tests Test 05/17/16 13:55 05/17/16 15:59 05/17/16 18:36 05/18/16 03:30 White Blood Count 18.6x10^3/uL (4.0-11.0) Red Blood Count 3.73x10^6/uL (3.50-5.40) Hemoglobin 11.3g/dL (12.0-15.5) Hematocrit 35.2% (36.0-47.0) Mean Corpuscular Volume 94fL (79-100) Mean Corpuscular Hemoglobin 30pg (25-35) Mean Corpuscular Hemoglobin Concent 32g/dL (31-37) Red Cell Distribution Width 14.1% (11.5-14.5) Platelet Count 433x10^3/uL (140-400) Neutrophils (%) (Auto) 87% (31-73) Lymphocytes (%) (Auto) 6% (24-48) Monocytes (%) (Auto) 7% (0-9) Eosinophils (%) (Auto) 1% (0-3) Basophils (%) (Auto) 0% (0-3) Neutrophils # (Auto) 16.1x10^3uL (1.8-7.7) Lymphocytes # (Auto) 1.0x10^3/uL (1.0-4.8) Monocytes # (Auto) 1.3x10^3/uL (0.0-1.1) Eosinophils # (Auto) 0.1x10^3/uL (0.0-0.7) Basophils # (Auto) 0.1x10^3/uL (0.0-0.2) Segmented Neutrophils % 84% (35-66) Band Neutrophils % 2% (0-9) Lymphocytes % 7% (24-48) Monocytes % 4% (0-10) Eosinophils % 1% (0-5) Basophils % 2% (0-3) Platelet Estimate Increased (ADEQUATE) Sodium Level 138mmol/L (136-145) 144mmol/L (136-145) Potassium Level 4.2mmol/L (3.5-5.1) 3.9mmol/L (3.5-5.1) Chloride Level 102mmol/L (98-107) 109mmol/L (98-107) Carbon Dioxide Level 25mmol/L (21-32) 23mmol/L (21-32) Anion Gap 11 (6-14) 12 (6-14) Blood Urea Nitrogen 21mg/dL (7-20) 16mg/dL (7-20) Creatinine 1.0mg/dL (0.6-1.0) 0.8mg/dL (0.6-1.0) Estimated GFR (Cockcroft-Gault) 55.5 71.8 BUN/Creatinine Ratio 21 (6-20) Glucose Level 105mg/dL (70-99) 142mg/dL (70-99) Lactic Acid Level 1.4mmol/L (0.4-2.0) Calcium Level 9.4mg/dL (8.5-10.1) 9.2mg/dL (8.5-10.1) Total Bilirubin 0.3mg/dL (0.2-1.0) Aspartate Amino Transf (AST/SGOT) 101U/L (15-37) Alanine Aminotransferase (ALT/SGPT) 88U/L (14-59) Alkaline Phosphatase 207U/L (46-116) Total Protein 6.0g/dL (6.4-8.2) Albumin 2.2g/dL (3.4-5.0) Albumin/Globulin Ratio 0.6 (1.0-1.7) Lipase 57U/L (73-393) Influenza Type A Antigen Negative (NEGATIVE) Influenza Type B Antigen Negative (NEGATIVE) Urine Collection Type Unknown Urine Color Yellow Urine Clarity Clear Urine pH 6.0 Urine Specific [place] 1.010 Urine Protein Negativemg/dL (NEG-TRACE) Urine Glucose (UA) Negativemg/dL (NEG) Urine Ketones (Stick) Negativemg/dL (NEG) Urine Blood Small (NEG) Urine Nitrite Negative (NEG) Urine Bilirubin Negative (NEG) Urine Urobilinogen Dipstick 1.0mg/dL (0.2 mg/dL) Urine Leukocyte Esterase Negative (NEG) Urine RBC 1-2/HPF (0-2) Urine WBC Occ/HPF (0-4) Urine Squamous Epithelial Cells Few/LPF Urine Bacteria 0/HPF (0-FEW) Urine Hyaline Casts Few/HPF Urine Mucus Slight/LPF Test 05/18/16 04:00 05/18/16 08:05 White Blood Count 19.1x10^3/uL (4.0-11.0) Red Blood Count 3.36x10^6/uL (3.50-5.40) Hemoglobin 10.5g/dL (12.0-15.5) Hematocrit 31.9% (36.0-47.0) Mean Corpuscular Volume 95fL (79-100) Mean Corpuscular Hemoglobin 31pg (25-35) Mean Corpuscular Hemoglobin Concent 33g/dL (31-37) Red Cell Distribution Width 13.8% (11.5-14.5) Platelet Count 412x10^3/uL (140-400) Neutrophils (%) (Auto) 95% (31-73) Lymphocytes (%) (Auto) 3% (24-48) Monocytes (%) (Auto) 2% (0-9) Eosinophils (%) (Auto) 0% (0-3) Basophils (%) (Auto) 0% (0-3) Neutrophils # (Auto) 18.1x10^3uL (1.8-7.7) Lymphocytes # (Auto) 0.5x10^3/uL (1.0-4.8) Monocytes # (Auto) 0.4x10^3/uL (0.0-1.1) Eosinophils # (Auto) 0.0x10^3/uL (0.0-0.7) Basophils # (Auto) 0.0x10^3/uL (0.0-0.2) Prothrombin Time 15.6SEC (11.7-14.0) Prothromb Time International Ratio 1.3 (0.8-1.1) Laboratory Tests Test 05/17/16 13:55 05/17/16 15:59 05/17/16 18:36 05/18/16 03:30 White Blood Count 18.6x10^3/uL (4.0-11.0) Red Blood Count 3.73x10^6/uL (3.50-5.40) Hemoglobin 11.3g/dL (12.0-15.5) Hematocrit 35.2% (36.0-47.0) Mean Corpuscular Volume 94fL (79-100) Mean Corpuscular Hemoglobin 30pg (25-35) Mean Corpuscular Hemoglobin Concent 32g/dL (31-37) Red Cell Distribution Width 14.1% (11.5-14.5) Platelet Count 433x10^3/uL (140-400) Neutrophils (%) (Auto) 87% (31-73) Lymphocytes (%) (Auto) 6% (24-48) Monocytes (%) (Auto) 7% (0-9) Eosinophils (%) (Auto) 1% (0-3) Basophils (%) (Auto) 0% (0-3) Neutrophils # (Auto) 16.1x10^3uL (1.8-7.7) Lymphocytes # (Auto) 1.0x10^3/uL (1.0-4.8) Monocytes # (Auto) 1.3x10^3/uL (0.0-1.1) Eosinophils # (Auto) 0.1x10^3/uL (0.0-0.7) Basophils # (Auto) 0.1x10^3/uL (0.0-0.2) Segmented Neutrophils % 84% (35-66) Band Neutrophils % 2% (0-9) Lymphocytes % 7% (24-48) Monocytes % 4% (0-10) Eosinophils % 1% (0-5) Basophils % 2% (0-3) Platelet Estimate Increased (ADEQUATE) Sodium Level 138mmol/L (136-145) 144mmol/L (136-145) Potassium Level 4.2mmol/L (3.5-5.1) 3.9mmol/L (3.5-5.1) Chloride Level 102mmol/L (98-107) 109mmol/L (98-107) Carbon Dioxide Level 25mmol/L (21-32) 23mmol/L (21-32) Anion Gap 11 (6-14) 12 (6-14) Blood Urea Nitrogen 21mg/dL (7-20) 16mg/dL (7-20) Creatinine 1.0mg/dL (0.6-1.0) 0.8mg/dL (0.6-1.0) Estimated GFR (Cockcroft-Gault) 55.5 71.8 BUN/Creatinine Ratio 21 (6-20) Glucose Level 105mg/dL (70-99) 142mg/dL (70-99) Lactic Acid Level 1.4mmol/L (0.4-2.0) Calcium Level 9.4mg/dL (8.5-10.1) 9.2mg/dL (8.5-10.1) Total Bilirubin 0.3mg/dL (0.2-1.0) Aspartate Amino Transf (AST/SGOT) 101U/L (15-37) Alanine Aminotransferase (ALT/SGPT) 88U/L (14-59) Alkaline Phosphatase 207U/L (46-116) Total Protein 6.0g/dL (6.4-8.2) Albumin 2.2g/dL (3.4-5.0) Albumin/Globulin Ratio 0.6 (1.0-1.7) Lipase 57U/L (73-393) Influenza Type A Antigen Negative (NEGATIVE) Influenza Type B Antigen Negative (NEGATIVE) Urine Collection Type Unknown Urine Color Yellow Urine Clarity Clear Urine pH 6.0 Urine Specific [place] 1.010 Urine Protein Negativemg/dL (NEG-TRACE) Urine Glucose (UA) Negativemg/dL (NEG) Urine Ketones (Stick) Negativemg/dL (NEG) Urine Blood Small (NEG) Urine Nitrite Negative (NEG) Urine Bilirubin Negative (NEG) Urine Urobilinogen Dipstick 1.0mg/dL (0.2 mg/dL) Urine Leukocyte Esterase Negative (NEG) Urine RBC 1-2/HPF (0-2) Urine WBC Occ/HPF (0-4) Urine Squamous Epithelial Cells Few/LPF Urine Bacteria 0/HPF (0-FEW) Urine Hyaline Casts Few/HPF Urine Mucus Slight/LPF Test 05/18/16 04:00 05/18/16 08:05 White Blood Count 19.1x10^3/uL (4.0-11.0) Red Blood Count 3.36x10^6/uL (3.50-5.40) Hemoglobin 10.5g/dL (12.0-15.5) Hematocrit 31.9% (36.0-47.0) Mean Corpuscular Volume 95fL (79-100) Mean Corpuscular Hemoglobin 31pg (25-35) Mean Corpuscular Hemoglobin Concent 33g/dL (31-37) Red Cell Distribution Width 13.8% (11.5-14.5) Platelet Count 412x10^3/uL (140-400) Neutrophils (%) (Auto) 95% (31-73) Lymphocytes (%) (Auto) 3% (24-48) Monocytes (%) (Auto) 2% (0-9) Eosinophils (%) (Auto) 0% (0-3) Basophils (%) (Auto) 0% (0-3) Neutrophils # (Auto) 18.1x10^3uL (1.8-7.7) Lymphocytes # (Auto) 0.5x10^3/uL (1.0-4.8) Monocytes # (Auto) 0.4x10^3/uL (0.0-1.1) Eosinophils # (Auto) 0.0x10^3/uL (0.0-0.7) Basophils # (Auto) 0.0x10^3/uL (0.0-0.2) Prothrombin Time 15.6SEC (11.7-14.0) Prothromb Time International Ratio 1.3 (0.8-1.1) Assessment/Plan Assessment/Plan 1. 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 Diagnosis was made by bronchoscopy and brushings on lavage and there is no biopsy done. I explained to the patient that more tissue is needed to further identify the histology and also followed by a marker testing, so we can target therapy according to the results of the biomarkers. She understands and agrees with the plan. I discussed with Dr. Cristian Malave from [facility], who recommended a bone biopsy and I will go ahead and arrange for that and also obtain staging MRI of the brain. I reviewed in detail with the patient and her regarding the diagnosis and prognosis of lung cancer and the treatment options including targeted therapy, immunotherapy, and chemotherapy. I also discussed the role of radiation therapy and all their questions were answered. 1. Dyspnea progressively worse, likely secondary to lung malignancy. Her oxygen saturations have been dropping. She was admitted to [facility] and staerted on O2. Consult Dr Ovalle 2. Bone metastasis. I will plan to initiate Xgeva after completion of palliative radiation therapy. DERICK RIDDLE MD May 18, 2016 09:47
[2016-05-18] MEDS: IV NORMAL SALINE 1000ML BAG 1,000 ML IV SCH (10:06)
[2016-05-18] MEDS ORDERED: GADOBUTROL 7.5 MMOL/7.5 ML VIAL IV ONE (11:15)
--- NOTE | 2016-05-18 11:45 | RAD ---
PROCEDURE MRI brain with and without contrast. HISTORY Lung cancer. Metastatic workup. TECHNIQUE Sagittal T1, axial T1, axial T2, axial FLAIR, axial T2 gradient, diffusion imaging with ADC map, post-contrast axial, and post-contrast coronal sequences are provided. 4.5 milliliters of intravenous Gadavist was administered without complication. COMPARISON None. FINDINGS Multiple ring enhancing presumed metastases are noted throughout the cerebellum and cerebral hemispheres. The 2 largest lesions are left external capsule measuring 12 millimeters and left occipital measuring 14 millimeters. Numerous additional lesions are noted, numbering around 15 lesions in total. There is edema associated with these lesions, most notably the left occipital lesion. There is no evidence of associated hemorrhage. There is no mass effect or midline shift. The ventricles and sulci are within normal limits for age. There is no true restricted diffusion to suggest acute infarct, some T2 shine through present. Intracranial flow voids are preserved. Clival marrow signal is preserved. There is abnormal signal noted within the calvarium, decreased on T1 imaging, suspicious for skeletal metastases. Paranasal sinuses and mastoid air cells are clear. IMPRESSION 1. Multiple ring-enhancing mass probable metastases, mostly at the roy-white junction, 2 largest lesions are left external capsule and left occipital. Findings are compatible with metastatic disease. 2. T1 hypointense lesions in the calvarium compatible with skeletal metastases. Consider bone scintigraphy. Electronically signed by: Dereje Sandoval MD (May 18, 2016 11:43:31)
[2016-05-18] MEDS ORDERED: IOHEXOL 300 MG/ML 75 ML VIAL IV ONE ×2 (13:30→14:15)
[2016-05-18] MEDS ORDERED: CONTRAST GIVEN MC PRN ×2 (13:30→14:30)
[2016-05-18] MEDS ORDERED: BISACODYL 5 MG TABLET.DR. PO PRN (14:45)
--- NOTE | 2016-05-18 14:48 | PDOC ---
Provider Note Provider Note 65 yo woman with known st IV (T2 N3 M1) non-small cell lung cancer of left lower lobe dx at bronch 04/25/2016 with positive cytology. Seen on 05/17/2016 for simulation for palliative treatment to T6 met and left lower lobe primary. At that time she was SOB with any exertion and had PO2 on RA after resting of 91%. Following assessment in Dr Williamson's office she then was seen in ER and admitted. Now better on 3-4 L O2 and antibiotics. CXR showed increased left lung infiltrate. MRI brain showed multiple ring enhancing lesions largest in left internal capsule and left occipital lobe c/w mets. CT guided bx planned to obtain tissue for receptor studies. Impression: Metastatic non-small cell lung cancer. Will initiate palliative T6 and left lung radiation on Saturday05/21/2016. Will also simulate for whole brain radiation for this treatment to start early next week. Likely postobstructive pneumonia on antibiotics. CT chest with PE protocol to exclude PE is planned now. CT Bx planned to obtain sufficient tissue for receptors. Discussed with Dr Ovalle patient and . EZEQUIEL CRAFT MD May 18, 2016 14:48
--- NOTE | 2016-05-18 14:54 | RAD ---
Indication difficulty breathing. CT examination of the chest was performed. Examination was targeted to the identification of pulmonary emboli. 75 cc of Omnipaque 300 was administered. MIP images were generated and reviewed. No prior CT imaging of the chest is available. Note is made of a plain film examination of the chest yesterday note is made of a PET scan 05/10/2016 suggesting primary malignancy in the lung. The thoracic aorta is unremarkable. Imaging through the upper abdomen demonstrates enlarged adrenal glands and some periaortic adenopathy as demonstrated on the referenced PET/CT. Parenchymal mass in the left lower lobe encircling and narrowing the left lower lobe pulmonary artery is seen. Multiple pulmonary nodules, as demonstrated on the referenced CT are again seen. Underlying emphysematous changes are noted. There is a groundglass opacity in the right upper lobe, and to a somewhat lesser extent in the lower lobe and in the caudal aspect of the left upper lobe. This is new relative to the previous exam. It is nonspecific. It may reflect superimposed edema or infection. The study is negative for pulmonary embolus. Marked compression of a midthoracic vertebral body segment, likely on a metastatic basis, is noted. IMPRESSION: Negative study for pulmonary embolus. Again seen, consistent with the findings on recent PET/CT, are findings compatible with a large primary neoplasm in the left lung with associated metastatic disease as outlined on that study. Underlying emphysematous changes. New groundglass opacities in both lungs are seen. Groundglass opacities are nonspecific and may reflect edema or infection. PQRS Compliance Statement: One or more of the following individualized dose reduction techniques were utilized for this examination: 1. Automated exposure control 2. Adjustment of the mA and/or kV according to patient size 3. Use of iterative reconstruction technique
[2016-05-18] MEDS ORDERED: LIDOCAINE 1% / SOD BICARB 8.4% 20 ML VIAL. IJ ONE ×2 (15:12→16:00)
[2016-05-18] MEDS ORDERED: FENTANYL PF 100 MCG/2 ML VIAL. ONE (15:49)
[2016-05-18] MEDS ORDERED: MIDAZOLAM HCL/PF 2 MG/2 ML VIAL. ONE (15:50)
[2016-05-18] MEDS ORDERED: MIDAZOLAM HCL/PF 2 MG/2 ML VIAL. IV ONE (16:00)
[2016-05-18] MEDS ORDERED: FENTANYL PF 100 MCG/2 ML VIAL. IV ONE (16:00)
--- NOTE | 2016-05-18 16:15 | PDOC ---
MODERATE SEDATION ASSESSMENT RISKS/ALTERNATIVES Risks/Alternatives Risks and alternatives of this type of sedation and procedure discussed with: RISK/ALTERNATIVES: Patient H & P ON CHART H & P H & P on chart and reviewed for co-morbid conditions and appropriate labs. H&P ON CHART: Yes STATUS PREG STATUS ASSESSED: N/A MEDS/ALLERGIES REVIEWED Meds/Allergies Reviewed Medications and Allergies including time and route of recently administered narcotics and sedatives. MEDS/ALLERGIES REVIEWED: Yes ASA RATING ASA RATING: III AIRWAY ASSESSMENT Airway Assessment Airway patency, oral function limitations, presence of caps, crowns, dentures, partials, and ability to extend neck assessed. AIRWAY ASSESSMENT: Yes MALLAMPATI SCORE MALLAMPATI SCORE: II PRE-SEDATION ASSESSMENT PRE-SEDATION ASSESSMENT: Yes SUMMER HADDAD MD May 18, 2016 16:15
--- NOTE | 2016-05-18 16:18 | PDOC ---
Exam Report Programmer Report Programmer Ananda District Manager [employer]s Sales District Manager [employer]s Sales Yobany Neil Pre-Procedure Diagnosis Pre-Procedure Diagnosis Non small cell lung cancer---bone bx requested for biomarkers Post-Procedure Diagnosis Post-Procedure Diagnosis Same Procedure Performed Procedure Performed Fluoro guided L3 vertebral body bone bx Type of Anesthesia Type of Anesthesia Local + Mod sedation Estimated Blood Loss EBL: Minimal Specimens Specimans 1 11G core bx in formalin Condition of Patient Condition of Patient No change. No apparent complication. Disposition Disposition From IR return to [facility] for recovery. F/u with Dr Last, Teri, and Yamile. Full report to follow. Preliminary fluoro evaluation confirmed marked pathologic fracture of a mid thoracic vertebral body. SUMMER HADDAD MD May 18, 2016 16:18
[2016-05-18] MEDS ORDERED: HYDROCODONE/APAP 5/325MG TABLET. PO PRN (17:15)
[2016-05-18] MEDS ORDERED: NON FORMULARY ITEM (Albuterol Sulfate (Albuterol Sulfate Neb Soln) 0.63 MG) NEB PRN (17:15)
[2016-05-18] MEDS: PANTOPRAZOLE 40 MG TABLET.DR. PO SCH (17:36)
[2016-05-18] MEDS: ENOXAPARIN 40 MG/0.4 ML SYRINGE. SQ SCH (17:36)
[2016-05-18] MEDS: ALBUTEROL SULFATE 2.5 MG/3 ML NEBU. NEB PRN ×2 (20:25→23:15)
[2016-05-18] MEDS: ZOLPIDEM 5 MG TABLET. PO SCH (20:46)
[2016-05-19] VITALS (8 sets, daily range): BP systolic 142–178; BP diastolic 83–99
[2016-05-19] MEDS: methylPREDNISolone SOD SUCC PF 40 MG/ML VIAL. IV SCH ×5 (00:37→21:02)
--- NOTE | 2016-05-19 01:25 | CONS ---
DATE OF CONSULTATION: 05/18/2016 ATTENDING PHYSICIAN: Rip Bunn DO REASON FOR CONSULTATION: The patient is seen in pulmonary consultation at the request of Dr. Bunn for increasing shortness of breath. HISTORY OF PRESENT ILLNESS: The patient is a 65-year-old female who initially presented back in April to my office with abnormal chest x-ray. She was evaluated with CT of the chest. CT was concerning for primary lung cancer. The patient underwent a diagnostic bronchoscopy. Bronchoscopy revealed abnormal mucosa involving the lingula and the opening to the left lower lobe. Cytology, brushing and BAL was done, which was positive for nonsmall cell lung cancer. The patient underwent PET scanning on 05/10/2016 revealing evidence of metastatic disease stage IV. She was evaluated yesterday by Dr. Last for consideration of palliative radiation specifically to T6. The patient now over the last 24 hours presented with acute onset of shortness of air, unable to take a deep breath, some diaphoresis, no syncope or near syncopal episodes. Denied fever, chills or night sweats. I was asked to see her in consultation. The patient currently denies any hemoptysis. She denies lower extremity edema or pain. PAST MEDICAL HISTORY: 1. Recent diagnosis of stage IV bronchogenic carcinoma as described above. Cytology and BAL was positive for nonsmall cell carcinoma. 2. History of depression, anxiety and tobacco use. No prior history of DVT or pulmonary embolism, coronary artery disease or gastritis. SOCIAL HISTORY: She quit tobacco back in April of this year. MEDICATIONS: List from home was reviewed. REVIEW OF SYSTEMS: As indicated above, otherwise, a 10-point system was reviewed and negative. PHYSICAL EXAMINATION: VITAL SIGNS: Stable. O2 saturation was greater than 92% on nasal cannula oxygen. HEENT: Eyes, the sclerae were nonicteric. NECK: Jugular venous distention was not elevated. No lymphadenopathy. CHEST: Full expansion. LUNGS: Rales on the left, no wheezes. CARDIOVASCULAR: Regular rate and rhythm with S1, S2, no S3. ABDOMEN: Soft, nontender, nondistended. EXTREMITIES: No clubbing, cyanosis or edema. NEUROLOGIC: The patient was awake, alert, following commands. A detailed neuro exam was not performed. LABORATORY DATA: White count was elevated. Hemoglobin and hematocrit were chronically low. INR was 1.3. Electrolytes were noted. BUN and creatinine were normal. Albumin was low. Serology for influenza was negative. Chest x-ray was reviewed. There was left-sided infiltrate, slightly worsened on current chest x-ray. MRI of the head revealed metastatic disease. IMPRESSION: 1. Stage IV nonsmall cell lung cancer diagnosed on 04/25/2016. 3. Progressive dyspnea, increasing hypoxemia, possible pulmonary embolism. 4. History of tobacco use, quit in April of this year. 5. Anxiety. 6. Depression. PLAN: 1. We will treat for presumptive pneumonia with antibiotics. 2. Rule out PE with CT angiogram stat, I spoke with Radiology Department. Case discussed with both Dr. Williamson and Dr. Last. I do appreciate the privilege in sharing in the patient's care. SARWAT ZUÑIGA MD DR: LASHAY/kandy JOB#: [id number] / [id number]
--- NOTE | 2016-05-19 03:39 | CONS ---
DATE OF CONSULTATION: 05/18/2016 REFERRING DOCTOR: Rafa Williamson M.D. DIAGNOSIS: Stage 4 (T2N3M1) nonsmall cell carcinoma of the left lower lobe with extensive regional jarod osseous adrenal metastases at diagnosis. Diagnosis was by bronchoscopy with positive cytology on 04/25/2016. She has just been seen as an outpatient for palliative radiation to T6 metastasis and obstructive airway disease from primary lesion following evaluation by Dr. Rafa Williamson. She was significantly hypoxic seen in the ER and now admitted. HISTORY OF PRESENT ILLNESS: The patient is a 65-year-old woman who in February develop cough, wheezing and shortness of breath. She was treated initially for pneumonia in 03/2016. Chest x-ray revealed a left lung mass and likely infiltrate. CT scan of the chest confirmed this and revealed left lower lobe mass extending superiorly into the left hilum, adjacent infiltrate and satellite nodules in the left lower lobe. There was mediastinal adenopathy, compression fracture of T6 and scattered noncalcified pulmonary nodules. Bronchoscopy on 04/25/2016 revealed abnormal mucosa involving the lingula and opening of the left lower lobe with inflammation and swelling. Submucosal cancer could not be excluded. Cytology, brush and bronchoalveolar lavage was performed, all of which revealed malignant cells consistent with nonsmall cell carcinoma. No forceps biopsy was performed. She has had ongoing shortness of breath with cough and wheezes. She has had migratory band like pain across her back and flank into the epigastric region, which comes and goes. She was initiated on Duragesic patch and Lortab. Following simulation for treatment on 05/17/2016, she had increasingly short of breath with exertion. She was seen in Dr. Williamson's office to initiate discussion regarding chemotherapy at which time her shortness of breath progressed and she was seen in the Emergency Room and subsequently admitted. She is now maintained pO2 of 90-92 on 3-4 liters of nasal oxygen. Antibiotics were begun for her obstructive pneumonitis. Chest x-ray revealed increased left lung infiltrate consistent with likely progressive post-obstructive pneumonitis. Head MRI with gadolinium was initially planned for outpatient was performed and revealed multiple ring enhancing intracranial lesions, largest of which was in the left internal capsule and left occipital lobe measuring up to 14 mm in size with no significant edema, mass effect or shift, all of which was consistent with asymptomatic brain metastases. She is now scheduled to undergo CT-guided biopsy to obtain tissue for receptors. She is seen by Dr. Ovalle who will obtain CT chest with PE protocol to exclude pulmonary embolus. PAST MEDICAL HISTORY: Remarkable for anxiety, depression, GE reflux, chronic obstructive lung disease, tonsillectomy, basal cell carcinoma. SOCIAL HISTORY: , 2 living children, 1 from overdose, retired from [employer] in 2001. Smoked from age 14 to age 65, one half pack a day, quit at her diagnosis. No alcohol use. LABORATORY STUDIES: Hemoglobin 11.3, white count 18,600, platelet count 433,000. Chemistry panel normal electrolytes, creatinine 1.0. Elevated ALT 88, AST 101, normal bilirubin 0.3, calcium 9.4. ASSESSMENT AND PLAN: In summary, my impression is that of stage 4 nonsmall cell carcinoma of the lung. At this time, we have planned to initiate treatment on Saturday to the chest and T6. We will also simulate her for treatment of her asymptomatic brain metastases. She will continue on therapy for her post-obstructive pneumonitis with oxygen, pulmonary therapy and antibiotics. CT with PE protocol was pending and will be scheduled by Dr. Ovalle. I had a thorough discussion with the patient and her . Thank you for allowing us to participate in her evaluation. EZEQUIEL CRAFT MD DR: KALIN/kandy JOB#: [id number] / [id number] Savanah Alas ANGELA PA SISILLO, SABATO MD MTDD
[2016-05-19] MEDS: IV NORMAL SALINE 1000ML BAG 1,000 ML IV SCH (05:10)
[2016-05-19 05:33] LABS: BASO % 0 % (0-3); EOS % 0 % (0-3); HEMATOCRIT 30.9 % (36.0-47.0); HEMOGLOBIN 10.3 g/dL (12.0-15.5); LYMPH # 0.6 x10^3/uL (1.0-4.8); LYMPH % 2 % (24-48); MEAN CORPUSCULAR HEMOGLOBIN 31 pg (25-35); MEAN CORPUSCULAR HGB CONC 33 g/dL (31-37); MEAN CORPUSCULAR VOLUME 93 fL (79-100); MONO % 5 % (0-9); NEUT % 93 % (31-73); PLATELET COUNT 463 x10^3/uL (140-400); RED BLOOD COUNT 3.34 x10^6/uL (3.50-5.40); WHITE BLOOD COUNT 25.8 x10^3/uL (4.0-11.0)
[2016-05-19 05:49] LABS: CALCIUM 9.2 mg/dL (8.5-10.1); CREATININE 0.9 mg/dL (0.6-1.0); GFR 62.6; POTASSIUM 3.6 mmol/L (3.5-5.1)
[2016-05-19] MEDS: PANTOPRAZOLE 40 MG TABLET.DR. PO SCH (06:10)
[2016-05-19] MEDS ORDERED: FLUOXETINE HCL 20 MG CAPSULE. ONE (07:37)
[2016-05-19] MEDS: ALBUTEROL SULFATE 2.5 MG/3 ML NEBU. NEB PRN (07:42)
[2016-05-19] MEDS: buPROPion 100 MG TABLET PO SCH (07:44)
[2016-05-19] MEDS: FLUOXETINE HCL 20 MG CAPSULE PO SCH (07:44)
[2016-05-19] MEDS: IPRATRPIUM/ALBUTEROL 0.5/2.5MG 3 ML NEBU. NEB SCH ×4 (09:00→20:26)
--- NOTE | 2016-05-19 09:17 | PDOC ---
PROGRESS NOTES Chief Complaint Chief Complaint Acute hypoxic respir failure ASSESSMENT AND PLAN: 1. COPD exacerbation: improving. on steroids, nebs, suppl O2, levaquin 2. NSCLC: s/p add.l bone bx for biologic marker determination 3. Brain mets: starting XRT next week. decadron 2 bid 4. pain control: PO and IV opioids. advised to use PO 4. Depression: stable mood. continue home meds 5. Prophylaxis: Lovenox, PPI Vitals Vitals Vital Signs Date Time Temp Pulse Resp B/P Pulse Ox O2 Delivery O2 Flow Rate FiO2 05/19/16 07:52 97.7 114 20 156/83 94 Venturi Mask 97.7 05/19/16 07:48 15.0 Physical Exam General: Alert, Oriented X3, Cooperative, No acute distress Heart: Regular rate Lungs: Other (tight, faint wheezes) Abdomen: Normal bowel sounds, No tenderness Extremities: No clubbing Skin: No rashes Labs LABS Laboratory Tests Test 05/19/16 04:57 White Blood Count 25.8x10^3/uL (4.0-11.0) Red Blood Count 3.34x10^6/uL (3.50-5.40) Hemoglobin 10.3g/dL (12.0-15.5) Hematocrit 30.9% (36.0-47.0) Mean Corpuscular Volume 93fL (79-100) Mean Corpuscular Hemoglobin 31pg (25-35) Mean Corpuscular Hemoglobin Concent 33g/dL (31-37) Red Cell Distribution Width 14.0% (11.5-14.5) Platelet Count 463x10^3/uL (140-400) Neutrophils (%) (Auto) 93% (31-73) Lymphocytes (%) (Auto) 2% (24-48) Monocytes (%) (Auto) 5% (0-9) Eosinophils (%) (Auto) 0% (0-3) Basophils (%) (Auto) 0% (0-3) Neutrophils # (Auto) 23.9x10^3uL (1.8-7.7) Lymphocytes # (Auto) 0.6x10^3/uL (1.0-4.8) Monocytes # (Auto) 1.3x10^3/uL (0.0-1.1) Eosinophils # (Auto) 0.0x10^3/uL (0.0-0.7) Basophils # (Auto) 0.0x10^3/uL (0.0-0.2) Sodium Level 141mmol/L (136-145) Potassium Level 3.6mmol/L (3.5-5.1) Chloride Level 107mmol/L (98-107) Carbon Dioxide Level 23mmol/L (21-32) Anion Gap 11 (6-14) Blood Urea Nitrogen 17mg/dL (7-20) Creatinine 0.9mg/dL (0.6-1.0) Estimated GFR (Cockcroft-Gault) 62.6 Glucose Level 137mg/dL (70-99) Calcium Level 9.2mg/dL (8.5-10.1) Review of Systems Review of Systems calmer today, some mid back pain, controlled with oral opioids CARLY KING MD May 19, 2016 09:17
--- NOTE | 2016-05-19 10:17 | PDOC ---
PULMONARY PROGRESS NOTES Subjective PT ABOUT THE SAME NO INCREASE SOA Vitals Vital Signs Date Time Temp Pulse Resp B/P Pulse Ox O2 Delivery O2 Flow Rate FiO2 05/19/16 07:52 97.7 114 20 156/83 94 Venturi Mask 97.7 05/19/16 07:48 15.0 ROS: No Nausea, No Chest Pain, No Abdominal Pain, No Increase Cough General: Alert Lungs: Crackles Cardiovascular: S1, S2 Abdomen: Soft Neuro Exam: Alert Extremities: No Edema Skin: Warm Labs Laboratory Tests Test 05/17/16 13:55 05/17/16 15:59 05/17/16 18:36 05/18/16 03:30 White Blood Count 18.6x10^3/uL (4.0-11.0) Red Blood Count 3.73x10^6/uL (3.50-5.40) Hemoglobin 11.3g/dL (12.0-15.5) Hematocrit 35.2% (36.0-47.0) Mean Corpuscular Volume 94fL (79-100) Mean Corpuscular Hemoglobin 30pg (25-35) Mean Corpuscular Hemoglobin Concent 32g/dL (31-37) Red Cell Distribution Width 14.1% (11.5-14.5) Platelet Count 433x10^3/uL (140-400) Neutrophils (%) (Auto) 87% (31-73) Lymphocytes (%) (Auto) 6% (24-48) Monocytes (%) (Auto) 7% (0-9) Eosinophils (%) (Auto) 1% (0-3) Basophils (%) (Auto) 0% (0-3) Neutrophils # (Auto) 16.1x10^3uL (1.8-7.7) Lymphocytes # (Auto) 1.0x10^3/uL (1.0-4.8) Monocytes # (Auto) 1.3x10^3/uL (0.0-1.1) Eosinophils # (Auto) 0.1x10^3/uL (0.0-0.7) Basophils # (Auto) 0.1x10^3/uL (0.0-0.2) Segmented Neutrophils % 84% (35-66) Band Neutrophils % 2% (0-9) Lymphocytes % 7% (24-48) Monocytes % 4% (0-10) Eosinophils % 1% (0-5) Basophils % 2% (0-3) Platelet Estimate Increased (ADEQUATE) Sodium Level 138mmol/L (136-145) 144mmol/L (136-145) Potassium Level 4.2mmol/L (3.5-5.1) 3.9mmol/L (3.5-5.1) Chloride Level 102mmol/L (98-107) 109mmol/L (98-107) Carbon Dioxide Level 25mmol/L (21-32) 23mmol/L (21-32) Anion Gap 11 (6-14) 12 (6-14) Blood Urea Nitrogen 21mg/dL (7-20) 16mg/dL (7-20) Creatinine 1.0mg/dL (0.6-1.0) 0.8mg/dL (0.6-1.0) Estimated GFR (Cockcroft-Gault) 55.5 71.8 BUN/Creatinine Ratio 21 (6-20) Glucose Level 105mg/dL (70-99) 142mg/dL (70-99) Lactic Acid Level 1.4mmol/L (0.4-2.0) Calcium Level 9.4mg/dL (8.5-10.1) 9.2mg/dL (8.5-10.1) Total Bilirubin 0.3mg/dL (0.2-1.0) Aspartate Amino Transf (AST/SGOT) 101U/L (15-37) Alanine Aminotransferase (ALT/SGPT) 88U/L (14-59) Alkaline Phosphatase 207U/L (46-116) Total Protein 6.0g/dL (6.4-8.2) Albumin 2.2g/dL (3.4-5.0) Albumin/Globulin Ratio 0.6 (1.0-1.7) Lipase 57U/L (73-393) Influenza Type A Antigen Negative (NEGATIVE) Influenza Type B Antigen Negative (NEGATIVE) Urine Collection Type Unknown Urine Color Yellow Urine Clarity Clear Urine pH 6.0 Urine Specific [place] 1.010 Urine Protein Negativemg/dL (NEG-TRACE) Urine Glucose (UA) Negativemg/dL (NEG) Urine Ketones (Stick) Negativemg/dL (NEG) Urine Blood Small (NEG) Urine Nitrite Negative (NEG) Urine Bilirubin Negative (NEG) Urine Urobilinogen Dipstick 1.0mg/dL (0.2 mg/dL) Urine Leukocyte Esterase Negative (NEG) Urine RBC 1-2/HPF (0-2) Urine WBC Occ/HPF (0-4) Urine Squamous Epithelial Cells Few/LPF Urine Bacteria 0/HPF (0-FEW) Urine Hyaline Casts Few/HPF Urine Mucus Slight/LPF Test 05/18/16 04:00 05/18/16 08:05 05/19/16 04:57 White Blood Count 19.1x10^3/uL (4.0-11.0) 25.8x10^3/uL (4.0-11.0) Red Blood Count 3.36x10^6/uL (3.50-5.40) 3.34x10^6/uL (3.50-5.40) Hemoglobin 10.5g/dL (12.0-15.5) 10.3g/dL (12.0-15.5) Hematocrit 31.9% (36.0-47.0) 30.9% (36.0-47.0) Mean Corpuscular Volume 95fL (79-100) 93fL (79-100) Mean Corpuscular Hemoglobin 31pg (25-35) 31pg (25-35) Mean Corpuscular Hemoglobin Concent 33g/dL (31-37) 33g/dL (31-37) Red Cell Distribution Width 13.8% (11.5-14.5) 14.0% (11.5-14.5) Platelet Count 412x10^3/uL (140-400) 463x10^3/uL (140-400) Neutrophils (%) (Auto) 95% (31-73) 93% (31-73) Lymphocytes (%) (Auto) 3% (24-48) 2% (24-48) Monocytes (%) (Auto) 2% (0-9) 5% (0-9) Eosinophils (%) (Auto) 0% (0-3) 0% (0-3) Basophils (%) (Auto) 0% (0-3) 0% (0-3) Neutrophils # (Auto) 18.1x10^3uL (1.8-7.7) 23.9x10^3uL (1.8-7.7) Lymphocytes # (Auto) 0.5x10^3/uL (1.0-4.8) 0.6x10^3/uL (1.0-4.8) Monocytes # (Auto) 0.4x10^3/uL (0.0-1.1) 1.3x10^3/uL (0.0-1.1) Eosinophils # (Auto) 0.0x10^3/uL (0.0-0.7) 0.0x10^3/uL (0.0-0.7) Basophils # (Auto) 0.0x10^3/uL (0.0-0.2) 0.0x10^3/uL (0.0-0.2) Prothrombin Time 15.6SEC (11.7-14.0) Prothromb Time International Ratio 1.3 (0.8-1.1) Sodium Level 141mmol/L (136-145) Potassium Level 3.6mmol/L (3.5-5.1) Chloride Level 107mmol/L (98-107) Carbon Dioxide Level 23mmol/L (21-32) Anion Gap 11 (6-14) Blood Urea Nitrogen 17mg/dL (7-20) Creatinine 0.9mg/dL (0.6-1.0) Estimated GFR (Cockcroft-Gault) 62.6 Glucose Level 137mg/dL (70-99) Calcium Level 9.2mg/dL (8.5-10.1) Laboratory Tests Test 05/19/16 04:57 White Blood Count 25.8x10^3/uL (4.0-11.0) Red Blood Count 3.34x10^6/uL (3.50-5.40) Hemoglobin 10.3g/dL (12.0-15.5) Hematocrit 30.9% (36.0-47.0) Mean Corpuscular Volume 93fL (79-100) Mean Corpuscular Hemoglobin 31pg (25-35) Mean Corpuscular Hemoglobin Concent 33g/dL (31-37) Red Cell Distribution Width 14.0% (11.5-14.5) Platelet Count 463x10^3/uL (140-400) Neutrophils (%) (Auto) 93% (31-73) Lymphocytes (%) (Auto) 2% (24-48) Monocytes (%) (Auto) 5% (0-9) Eosinophils (%) (Auto) 0% (0-3) Basophils (%) (Auto) 0% (0-3) Neutrophils # (Auto) 23.9x10^3uL (1.8-7.7) Lymphocytes # (Auto) 0.6x10^3/uL (1.0-4.8) Monocytes # (Auto) 1.3x10^3/uL (0.0-1.1) Eosinophils # (Auto) 0.0x10^3/uL (0.0-0.7) Basophils # (Auto) 0.0x10^3/uL (0.0-0.2) Sodium Level 141mmol/L (136-145) Potassium Level 3.6mmol/L (3.5-5.1) Chloride Level 107mmol/L (98-107) Carbon Dioxide Level 23mmol/L (21-32) Anion Gap 11 (6-14) Blood Urea Nitrogen 17mg/dL (7-20) Creatinine 0.9mg/dL (0.6-1.0) Estimated GFR (Cockcroft-Gault) 62.6 Glucose Level 137mg/dL (70-99) Calcium Level 9.2mg/dL (8.5-10.1) Medications Active Scripts Medications Dose Route/Sig Days Date Category Albuterol Sulfate Neb Soln (Albuterol Sulfate) 0.63 Mg/3 Ml Vial.neb 0.63 Mg NEB PRN Q4HRS PRN 05/17/16 Reported Proair Hfa Inhaler (Albuterol Sulfate) 8.5 Gm Hfa.aer.ad 1 Puff INH PRN Q6HRS PRN 05/17/16 Reported Lortab 5-325 mg Tablet (Hydrocodone/Acetaminophen) 1 Each Tablet 1-2 Tab PO Q4HRS PRN 05/17/16 Reported DURAGESIC 12mcg/hr (Fentanyl) 1 Each Patch.td72 1 Patch TD Q72H 05/17/16 Reported Bupropion Hcl 100 Mg Tablet 100 Mg PO 04/25/16 Reported Fluoxetine Hcl 40 Mg Capsule 60 Mg PO DAILY 04/25/16 Reported Ambien (Zolpidem Tartrate) 10 Mg Tablet 1 Tab PO QHS 04/25/16 Reported Impression . 1. Stage IV nonsmall cell lung cancer diagnosed on 04/25/2016. 3. Acute and Chronic resp failure multifactorial advance disease possible pneumonia, AECOPD 4. History of tobacco use, quit in April of this year. 5. Anxiety. 6. Depression. 7. NO PE, Plan . 1. We will treat for presumptive pneumonia with antibiotics. 2. XRT per Dr Last 3. steroids 4. 02 5. SARWAT Collins MD May 19, 2016 10:17
[2016-05-19] MEDS: DEXAMETHASONE 1 MG TABLET PO SCH ×2 (10:19→21:00)
[2016-05-19] MEDS: HYDROCODONE/APAP 5/325MG TABLET. PO PRN ×3 (10:20→18:06)
--- NOTE | 2016-05-19 12:09 | RAD ---
Fluoroscopy guided L3 vertebral body bone biopsy Indication: 65-year-old female with non-small cell lung cancer documented at bronchoscopy, with metastases to bone and brain. Image guided L3 bone biopsy has been requested for biomarkers. Fluoroscopy time: 5.6 minutes Kerma-area Product: 22 :Anesthesia: 17 minutes moderate sedation was provided utilizing a total of 1.5 mg Versed and 75 mcg fentanyl, IV. The patient was appropriately monitored by a qualified independent observer throughout the time of moderate sedation. Consent: The procedure was explained in its entirety to the patient and/or the patient's designated sales development representative by a member of the treatment team. This included a discussion of risks and benefits and commonly accepted alternatives to the procedure, as well as expected consequences of no treatment at all. Discussion of risks included, but was not limited to, those that are most frequent and those that are rare, but possibly severe or life-threatening, as well as the possibility of unforeseen complications. Sterility: All elements of maximal sterile barrier technique were utilized, including cap, mask, sterile gown, sterile gloves, large sterile sheet, appropriate hand hygiene, and 2% chlorhexidine for cutaneous antisepsis. Procedure: Informed consent was obtained from the patient. She was placed prone on the angiography table. Midline low back was prepped and draped in usual sterile fashion, utilizing all elements of maximal sterile barrier technique, as described above. Moderate sedation was provided with IV Versed and fentanyl. No prophylactic antibiotic was considered indicated for this simple biopsy procedure. Using aseptic technique, local anesthesia, and direct fluoroscopic guidance, the 10-gauge needle from the [employer] power drill assisted bone biopsy system was easily introduced through posterior cortex of right L3 pedicle, and was advanced into right posterior L3 vertebral body. Subsequently, utilizing strict fluoroscopic guidance in the lateral projection, a single lateral assisted core biopsy samples obtained. A sterile dressing was applied at the skin puncture site. The biopsy sample was submitted in formalin to pathology. Patient tolerated the procedure well without apparent complication. Impression: Successful, uneventful fluoroscopy guided power drill assisted L3 vertebral body bone biopsy, as described.
[2016-05-19] MEDS: ALPRAZOLAM 1 MG TABLET PO PRN (14:18)
--- NOTE | 2016-05-19 16:44 | HP ---
ADMIT DATE: CHIEF COMPLAINT: Hypoxic respiratory failure. HISTORY OF PRESENT ILLNESS: This is a 65-year-old woman, who had been recently diagnosed with nonsmall cell lung carcinoma, who presented to radiation therapy yesterday for a routine exam prior to starting treatment. There she was found hypoxic on room air and sent to the Emergency Department for further treatment. She herself felt short of breath on that day, had been diagnosed previously with emphysema, had a nonproductive cough that had been going on for quite a while. Her symptoms improved with oxygen as well as nebulizer treatments in the ER. She is now admitted for further management and care. PAST MEDICAL HISTORY: Nonsmall cell lung carcinoma, stage IV; COPD/emphysema and bronchitis, anxiety depression. FAMILY HISTORY: Father with emphysema. Mother with lung cancer. SOCIAL HISTORY: She lives with her . Quit smoking 6 weeks ago. No ongoing toxic habits. ALLERGIES: No known drug allergies. MEDICATIONS: MAR reconciled with home meds. REVIEW OF SYSTEMS: Positive for shortness of breath. She has a noticed labored breathing for quite a while, which she attributes to her cancer. Rest of organ system review is negative. PHYSICAL EXAMINATION: VITAL SIGNS: From today, blood pressure of 141/87, heart rate of 120, respiratory rate 16. She is afebrile. GENERAL: This is a 65-year-old woman, alert and oriented, in no acute distress. HEENT: shows wasting in the temporal area. NECK: Supple. LUNGS: Fairly clear bilaterally. CARDIOVASCULAR: Heart is regular rate and rhythm. ABDOMEN: Has positive bowel sounds, soft, nontender. EXTREMITIES: Show no edema. LABORATORY DATA: CBC from today shows a WBC of 19.1, hemoglobin 10.7 and platelets of 412. Chemistries with a BUN and creatinine of 16 and 0.8. Normal electrolytes, glucose 142. LFTs at admission showed an AST of 101, ALT of 88, albumin of 2.2, alkaline phosphatase at 207, bilirubin was 0.3. Coags with an INR of 1.3. Serologies for influenza A and B are negative. IMAGING STUDIES: CTA of the chest showed negative study for pulmonary embolus. Findings show a large primary neoplasm in the left lung with associated metastatic disease, underlying emphysematous changes, diffuse ground glass opacities in both lungs. ASSESSMENT AND PLAN: The patient admitted for hypoxia, most likely secondary to chronic obstructive pulmonary disease exacerbation. She has been started on IV methylprednisolone at 60 mg q. 6 hours. We will wean that as tolerated over the next few days. She also will receive supplemental oxygen and nebulizers as well as Levaquin empirically for bronchitis. Her lung cancer is in the process of getting stage. Unfortunately, an MRI revealed multiple lesions to the brain. She will start brain radiation once everything is stabilized, hopefully early next week. Her nonsmall cell lung cancer has not been completely identified as to biomarkers. A biopsy will be obtained today to further elucidate if she is eligible for a biological therapy. In conjunction with her biopsy, she does have pain medications orally available. Per 's request, Dilaudid IV was also written. She will be started on Lovenox for deep venous thrombosis prophylaxis as well as PPI for stomach prophylaxis. CARLY KING MD DR: UR/nts JOB#: [id number] / [id number] DERICK Day MD, ANGELA PA ROBINOW, JAY MD ____, Dr. CAIN
[2016-05-19] MEDS: ENOXAPARIN 40 MG/0.4 ML SYRINGE. SQ SCH (17:06)
[2016-05-19] MEDS ORDERED: DEXAMETHASONE 1 MG TABLET PO SCH (21:00)
[2016-05-19] MEDS: ZOLPIDEM 5 MG TABLET. PO SCH (21:00)
[2016-05-20] VITALS (7 sets, daily range): BP systolic 145–191; BP diastolic 86–119
[2016-05-20] MEDS: ALBUTEROL SULFATE 2.5 MG/3 ML NEBU. NEB PRN (00:28)
[2016-05-20] MEDS: ALPRAZOLAM 1 MG TABLET PO PRN ×2 (03:59→14:06)
[2016-05-20] MEDS: LEVOFLOXACIN 500 MG TABLET PO SCH (06:18)
[2016-05-20] MEDS: HYDROCODONE/APAP 5/325MG TABLET. PO PRN ×4 (06:24→20:03)
[2016-05-20] MEDS ORDERED: LISINOPRIL 10 MG TABLET PO ONE (07:00)
[2016-05-20] MEDS: IPRATRPIUM/ALBUTEROL 0.5/2.5MG 3 ML NEBU. NEB SCH ×4 (07:30→19:40)
[2016-05-20] MEDS: DEXAMETHASONE 1 MG TABLET PO SCH ×2 (08:12→20:02)
[2016-05-20] MEDS: buPROPion 100 MG TABLET PO SCH (08:12)
[2016-05-20] MEDS: PANTOPRAZOLE 40 MG TABLET.DR. PO SCH (08:15)
[2016-05-20] MEDS: FLUOXETINE HCL 20 MG CAPSULE. PO SCH (08:15)
[2016-05-20] MEDS: FENTANYL 12 MCG/HR TD SCH (08:18)
[2016-05-20] MEDS: methylPREDNISolone SOD SUCC PF 40 MG/ML VIAL. IV SCH ×2 (08:24→20:03)
--- NOTE | 2016-05-20 10:13 | PDOC ---
PROGRESS NOTES Chief Complaint Chief Complaint Acute hypoxic respir failure ASSESSMENT AND PLAN: 1. COPD exacerbation: more hypoxic with sats only in 80s on 15L. switched to BiPAP PRN. on steroids, nebs, suppl O2 2. ? (postobstruct) PNA: levaquin 3. NSCLC: s/p add.l bone bx for biologic marker determination. Dr Williamson and Dr Last following 4. Brain mets: starting XRT next week. decadron 2 bid 5. pain control: PO and IV opioids. advised to use PO 6. HTN: poorly controlled O/N. no hx. start lisinopril; hydralazine PRN 7. Depression: stable mood. continue home meds 8. Prophylaxis: Lovenox, PPI 9. IV access: lost peripheral access; will need central line for meds and labs Vitals Vitals Vital Signs Date Time Temp Pulse Resp B/P Pulse Ox O2 Delivery O2 Flow Rate FiO2 05/20/16 08:23 20 92 Nasal Cannula 15.0 05/20/16 08:16 114 191/119 05/20/16 07:26 97.3 97.3 Physical Exam General: Alert, Oriented X3, Cooperative, No acute distress Heart: Regular rate Lungs: Other (tight, faint wheezes) Abdomen: Normal bowel sounds, No tenderness Extremities: No clubbing Skin: No rashes Review of Systems Review of Systems on BiPAP, feels a bit better . c/o R eye feeling as if she had wind blown into it. CARLY KING MD May 20, 2016 10:13
[2016-05-20] MEDS: LISINOPRIL 20 MG TABLET PO SCH (10:22)
[2016-05-20 13:08] LABS: HCO3 ABG 22 mmol/L (21-28); PCO2 ABG 31 mmHg (35-46); PH ABG 7.48 (7.35-7.45); PO2 ABG 106 mmHg (65-108); SAT O2 ABG 98 % (92-99)
--- NOTE | 2016-05-20 14:32 | PDOC ---
PULMONARY PROGRESS NOTES Subjective PT ABOUT THE SAME SLIGHTLY INCREASE SOA Vitals Vital Signs Date Time Temp Pulse Resp B/P Pulse Ox O2 Delivery O2 Flow Rate FiO2 05/20/16 14:08 20 Nasal Cannula 15.0 05/20/16 11:51 96 05/20/16 11:29 97.6 107 178/95 97.6 ROS: No Nausea, No Chest Pain, No Abdominal Pain, No Increase Cough General: Alert Lungs: Other (tight, faint wheezes) Cardiovascular: S1, S2 Abdomen: Soft Neuro Exam: Alert Extremities: No Edema Skin: Warm Labs Laboratory Tests Test 05/19/16 04:57 White Blood Count 25.8x10^3/uL (4.0-11.0) Red Blood Count 3.34x10^6/uL (3.50-5.40) Hemoglobin 10.3g/dL (12.0-15.5) Hematocrit 30.9% (36.0-47.0) Mean Corpuscular Volume 93fL (79-100) Mean Corpuscular Hemoglobin 31pg (25-35) Mean Corpuscular Hemoglobin Concent 33g/dL (31-37) Red Cell Distribution Width 14.0% (11.5-14.5) Platelet Count 463x10^3/uL (140-400) Neutrophils (%) (Auto) 93% (31-73) Lymphocytes (%) (Auto) 2% (24-48) Monocytes (%) (Auto) 5% (0-9) Eosinophils (%) (Auto) 0% (0-3) Basophils (%) (Auto) 0% (0-3) Neutrophils # (Auto) 23.9x10^3uL (1.8-7.7) Lymphocytes # (Auto) 0.6x10^3/uL (1.0-4.8) Monocytes # (Auto) 1.3x10^3/uL (0.0-1.1) Eosinophils # (Auto) 0.0x10^3/uL (0.0-0.7) Basophils # (Auto) 0.0x10^3/uL (0.0-0.2) Sodium Level 141mmol/L (136-145) Potassium Level 3.6mmol/L (3.5-5.1) Chloride Level 107mmol/L (98-107) Carbon Dioxide Level 23mmol/L (21-32) Anion Gap 11 (6-14) Blood Urea Nitrogen 17mg/dL (7-20) Creatinine 0.9mg/dL (0.6-1.0) Estimated GFR (Cockcroft-Gault) 62.6 Glucose Level 137mg/dL (70-99) Calcium Level 9.2mg/dL (8.5-10.1) Medications Active Scripts Medications Dose Route/Sig Days Date Category Albuterol Sulfate Neb Soln (Albuterol Sulfate) 0.63 Mg/3 Ml Vial.neb 0.63 Mg NEB PRN Q4HRS PRN 05/17/16 Reported Proair Hfa Inhaler (Albuterol Sulfate) 8.5 Gm Hfa.aer.ad 1 Puff INH PRN Q6HRS PRN 05/17/16 Reported Lortab 5-325 mg Tablet (Hydrocodone/Acetaminophen) 1 Each Tablet 1-2 Tab PO Q4HRS PRN 05/17/16 Reported DURAGESIC 12mcg/hr (Fentanyl) 1 Each Patch.td72 1 Patch TD Q72H 05/17/16 Reported Bupropion Hcl 100 Mg Tablet 100 Mg PO 04/25/16 Reported Fluoxetine Hcl 40 Mg Capsule 60 Mg PO DAILY 04/25/16 Reported Ambien (Zolpidem Tartrate) 10 Mg Tablet 1 Tab PO QHS 04/25/16 Reported Impression . 1. Stage IV nonsmall cell lung cancer diagnosed on 04/25/2016. 3. Acute and Chronic resp failure multifactorial advance disease possible pneumonia, AECOPD 4. History of tobacco use, quit in April of this year. 5. Anxiety. 6. Depression. 7. NO PE, 8. Possible non cardiogenic edema, could be lymphangitic spread pt with increase jannet Plan . 1. We will treat for presumptive pneumonia with antibiotics. 2. XRT per Dr Last 3. steroids 4. 02 5. Nebs 6. Lasix times one SARWAT ZUÑIGA MD May 20, 2016 14:32
[2016-05-20] MEDS: hydrALAZINE 20 MG/ML VIAL. IVP PRN ×2 (14:40→17:45)
[2016-05-20] MEDS ORDERED: FUROSEMIDE 40 MG/4 ML VIAL. IVP ONE (15:00)
[2016-05-20] MEDS: ENOXAPARIN 40 MG/0.4 ML SYRINGE. SQ SCH (16:38)
[2016-05-20 16:41] LABS: FIO2 ABG 60
[2016-05-20] MEDS: ZOLPIDEM 5 MG TABLET. PO SCH (20:02)
[2016-05-20] MEDS: HYDROMORPHONE 2 MG/ML VIAL. IVP PRN (21:16)
[2016-05-21] VITALS (7 sets, daily range): BP systolic 130–164; BP diastolic 74–90
[2016-05-21] MEDS: HYDROMORPHONE 2 MG/ML VIAL. IVP PRN ×2 (00:03→06:36)
[2016-05-21] MEDS: hydrALAZINE 20 MG/ML VIAL. IVP PRN (00:03)
[2016-05-21] MEDS: LEVOFLOXACIN 500 MG TABLET PO SCH (06:00)
[2016-05-21] MEDS: IPRATRPIUM/ALBUTEROL 0.5/2.5MG 3 ML NEBU. NEB SCH ×4 (07:55→20:24)
[2016-05-21] MEDS: ALPRAZOLAM 1 MG TABLET PO PRN ×2 (08:15→20:56)
[2016-05-21] MEDS: FLUOXETINE HCL 20 MG CAPSULE. PO SCH (08:15)
[2016-05-21] MEDS: PANTOPRAZOLE 40 MG TABLET.DR. PO SCH (08:15)
[2016-05-21] MEDS: LISINOPRIL 20 MG TABLET PO SCH (08:16)
[2016-05-21] MEDS: methylPREDNISolone SOD SUCC PF 40 MG/ML VIAL. IV SCH (08:17)
[2016-05-21] MEDS: DEXAMETHASONE 1 MG TABLET PO SCH ×2 (08:17→20:56)
[2016-05-21] MEDS: buPROPion 100 MG TABLET PO SCH (08:17)
[2016-05-21] MEDS: HYDROCODONE/APAP 5/325MG TABLET. PO PRN ×2 (08:18→21:02)
--- NOTE | 2016-05-21 09:42 | PDOC ---
PULMONARY PROGRESS NOTES Subjective PT ABOUT THE SAME SLIGHTLY INCREASE SOA Vitals Vital Signs Date Time Temp Pulse Resp B/P Pulse Ox O2 Delivery O2 Flow Rate FiO2 05/21/16 09:37 22 Nasal Cannula 15.0 05/21/16 08:18 90 05/21/16 08:16 114 149/81 05/21/16 07:26 97.1 97.1 ROS: No Nausea, No Chest Pain, No Abdominal Pain, No Increase Cough General: Alert Lungs: Other (tight, faint wheezes) Cardiovascular: S1, S2 Abdomen: Soft Neuro Exam: Alert Extremities: No Edema Skin: Warm Labs Laboratory Tests Test 05/20/16 13:00 O2 Saturation 98% (92-99) Arterial Blood pH 7.48 (7.35-7.45) Arterial Blood pCO2 at Patient Temp 31mmHg (35-46) Arterial Blood pO2 at Patient Temp 106mmHg (65-108) Arterial Blood HCO3 22mmol/L (21-28) Arterial Blood Base Excess -1mmol/L (-3-3) FiO2 60 Laboratory Tests Test 05/20/16 13:00 O2 Saturation 98% (92-99) Arterial Blood pH 7.48 (7.35-7.45) Arterial Blood pCO2 at Patient Temp 31mmHg (35-46) Arterial Blood pO2 at Patient Temp 106mmHg (65-108) Arterial Blood HCO3 22mmol/L (21-28) Arterial Blood Base Excess -1mmol/L (-3-3) FiO2 60 Medications Active Scripts Medications Dose Route/Sig Days Date Category Albuterol Sulfate Neb Soln (Albuterol Sulfate) 0.63 Mg/3 Ml Vial.neb 0.63 Mg NEB PRN Q4HRS PRN 05/17/16 Reported Proair Hfa Inhaler (Albuterol Sulfate) 8.5 Gm Hfa.aer.ad 1 Puff INH PRN Q6HRS PRN 05/17/16 Reported Lortab 5-325 mg Tablet (Hydrocodone/Acetaminophen) 1 Each Tablet 1-2 Tab PO Q4HRS PRN 05/17/16 Reported DURAGESIC 12mcg/hr (Fentanyl) 1 Each Patch.td72 1 Patch TD Q72H 05/17/16 Reported Bupropion Hcl 100 Mg Tablet 100 Mg PO 04/25/16 Reported Fluoxetine Hcl 40 Mg Capsule 60 Mg PO DAILY 04/25/16 Reported Ambien (Zolpidem Tartrate) 10 Mg Tablet 1 Tab PO QHS 04/25/16 Reported Impression . 1. Stage IV nonsmall cell lung cancer diagnosed on 04/25/2016. 3. Acute and Chronic resp failure multifactorial advance disease possible pneumonia, AECOPD 4. History of tobacco use, quit in April of this year. 5. Anxiety. 6. Depression. 7. NO PE, 8. Possible non cardiogenic edema, could be lymphangitic spread pt with increase jannet Plan . 1. We will treat for presumptive pneumonia with antibiotics. 2. XRT per Dr Last 3. steroids 4. 02 5. Nebs 6. Lasix times one SARWAT ZUÑIGA MD May 21, 2016 09:42
[2016-05-21] MEDS ORDERED: PREDNISONE 20 MG TABLET PO SCH (11:00)
[2016-05-21] MEDS ORDERED: MULT-691 PO (12:36)
--- NOTE | 2016-05-21 12:55 | PDOC ---
PROGRESS NOTES Chief Complaint Chief Complaint Acute hypoxic respir failure ASSESSMENT AND PLAN: 1. COPD exacerbation: more hypoxic with sats only in 80s on 15L. switched to BiPAP PRN. on steroids, nebs, suppl O2 2. ? (postobstruct) PNA: levaquin 3. NSCLC: s/p add.l bone bx for biologic marker determination. Dr Williamson and Dr Last following 4. Brain mets: starting XRT next week. decadron 2 bid 5. pain control: PO and IV opioids. advised to use PO 6. HTN: poorly controlled O/N. no hx. start lisinopril; hydralazine PRN 7. Depression: stable mood. continue home meds 8. Prophylaxis: Lovenox, PPI 9. IV access: lost peripheral access; will need central line for meds and labs plan: 1. fu with pulm, RT, onco 2. rt for lung Ca and brain mets this week 3. cont levaquin, change to po need PICC pine change to prednisone po, still on decadron for brain mets 4. PAT consult still need high flow, likely wont improve soon with RT. increase lisinopril to 40mg daily History of Present Illness History of Present Illness still very sob, need 15L high flow O2 pt looks lethargic, arousable tho, answer questions and follow commands, no complain Vitals Vitals Vital Signs Date Time Temp Pulse Resp B/P Pulse Ox O2 Delivery O2 Flow Rate FiO2 05/21/16 11:53 91 High Flow Nasal Cannula 15.0 05/21/16 11:00 97.7 112 18 130/75 97.7 Physical Exam General: Alert, Oriented X3, Cooperative, No acute distress Heart: Regular rate Lungs: Other (tight, faint wheezes) Abdomen: Normal bowel sounds, No tenderness Extremities: No clubbing Skin: No rashes Labs LABS Laboratory Tests Test 05/20/16 13:00 O2 Saturation 98% (92-99) Arterial Blood pH 7.48 (7.35-7.45) Arterial Blood pCO2 at Patient Temp 31mmHg (35-46) Arterial Blood pO2 at Patient Temp 106mmHg (65-108) Arterial Blood HCO3 22mmol/L (21-28) Arterial Blood Base Excess -1mmol/L (-3-3) FiO2 60 Review of Systems Review of Systems no fever, chills, chest pain Assessment and Plan Assessmemt and Plan Problems Medical Problems: (1) Acute respiratory failure with hypoxia Status: Acute (2) Community acquired pneumonia Status: Acute (3) Metastatic lung carcinoma Status: Acute (4) Sepsis Status: Acute (5) Severe protein-calorie malnutrition Status: Acute Problems: Comment Review of Relevant I have reviewed the following items yesenia (where applicable) has been applied. Labs Laboratory Tests Test 05/20/16 13:00 O2 Saturation 98% (92-99) Arterial Blood pH 7.48 (7.35-7.45) Arterial Blood pCO2 at Patient Temp 31mmHg (35-46) Arterial Blood pO2 at Patient Temp 106mmHg (65-108) Arterial Blood HCO3 22mmol/L (21-28) Arterial Blood Base Excess -1mmol/L (-3-3) FiO2 60 Laboratory Tests Test 05/20/16 13:00 O2 Saturation 98% (92-99) Arterial Blood pH 7.48 (7.35-7.45) Arterial Blood pCO2 at Patient Temp 31mmHg (35-46) Arterial Blood pO2 at Patient Temp 106mmHg (65-108) Arterial Blood HCO3 22mmol/L (21-28) Arterial Blood Base Excess -1mmol/L (-3-3) FiO2 60 Microbiology 05/18/16 Blood Culture - Preliminary, Resulted NO GROWTH AFTER 3 DAYS Medications Current Medications Sodium Chloride (Iv Sodium Chloride 0.9% 1000ml Bag) 1,000 ml @ 1,000 mls/hr Q1H IV Last administered on 05/17/16 16:05; Start 05/17/16 at 15:44; Stop at 16:43; Status DC Albuterol/ Ipratropium (Duoneb) 6 ml 1X ONCE NEB Last administered on 16:11; Start 05/17/16 at 15:45; Stop 05/17/16 at 15:49; Status DC Methylprednisolone Sodium Succinate (Solu-Medrol 125mg Vial) 125 mg 1X ONCE IV Last administered on 05/17/16 16:05; Start 05/17/16 at 15:45; Stop 05/17/16 at 15:49; Status DC Acetaminophen/ Hydrocodone Bitart (Lortab 5/325) may give max of 8 pills/day PRN Q4HRS PRN PO PAIN Last administered on 05/18/16 23:22; Start 05/17/16 at 16:15; Stop 05/19/16 at 08:58; Status DC Ondansetron HCl 4 mg 4 mg PRN Q8HRS PRN IV NAUSEA/VOMITING; Start 05/17/16 at 17:00; Stop 05/18/16 at 16:59; Status DC Sodium Chloride (Iv Sodium Chloride 0.9% 1000ml Bag) 1,000 ml @ 100 mls/hr Q10H IV Last administered on 05/19/16 05:10; Start 05/17/16 at 16:46; Stop at 16:45; Status DC Albuterol/ Ipratropium (Duoneb) 3 ml RTQID NEB Last administered on 05/18/16 16:24; Start 05/17/16 at 20:00; Stop 05/18/16 at 19:59; Status DC Methylprednisolone Sodium Succinate (Solu-Medrol 40mg Vial) 60 mg Q6HRS IV Last administered on 05/19/16 17:06; Start 05/17/16 at 18:00; Stop 05/19/16 at 18 :41; Status DC Levofloxacin/ Dextrose 1 each 1 each PRN DAILY PRN MC SEE COMMENTS; Start 05/17 at 17:15; Stop 05/20/16 at 14:08; Status DC Levofloxacin/ Dextrose (LEVAQUIN 750mg PREMIX) 150 ml @ 100 mls/hr Q24H IV Last administered on 05/19/16 17:07; Start 05/17/16 at 18:00; Stop 05/19/16 at 20 :58; Status DC Fentanyl (Duragesic 12mcg/ Hr Patch) 1 patch Q72H TD Last administered on 23:17; Start 05/17/16 at 23:00; Stop 05/19/16 at 13:54; Status DC Fluoxetine HCl (Prozac) 60 mg DAILY PO Last administered on 05/19/16 07:44; Start 05/18/16 at 09:00; Stop 05/19/16 at 13:52; Status DC Zolpidem Tartrate (Ambien) 5 mg PRN QHS PRN PO INSOMNIA Last administered on 23:20; Start 05/17/16 at 23:00 Bupropion HCl (Wellbutrin) 100 mg DAILY PO Last administered on 05/21/16 08:17 ; Start 05/18/16 at 09:00 Zolpidem Tartrate (Ambien) 5 mg QHS PO Last administered on 05/20/16 20:02; Start 05/17/16 at 23:00 Gadobutrol (Gadavist) 4.5 mmol 1X ONCE IV Last administered on 05/18/16 11:15 ; Start 05/18/16 at 11:15; Stop 05/18/16 at 11:16; Status DC Iohexol (Omnipaque 300 Mg/ml) 75 ml 1X ONCE IV ; Start 05/18/16 at 13:30; Stop 05/18/16 at 13:31; Status DC Info (Do NOT chart on this entry -- for MONITORING) 1 each PRN DAILY PRN MC SEE COMMENTS; Start 05/18/16 at 13:30; Stop 05/20/16 at 13:29; Status DC Iohexol (Omnipaque 300 Mg/ml) 75 ml 1X ONCE IV ; Start 05/18/16 at 14:15; Stop 05/18/16 at 14:17; Status DC Info (Do NOT chart on this entry -- for MONITORING) 1 each PRN DAILY PRN MC SEE COMMENTS; Start 05/18/16 at 14:30; Stop 05/20/16 at 14:29; Status DC Bisacodyl (Dulcolax Tab) 10 mg PRN DAILY PRN PO CONSTIPATION Last administered on 05/19/16 08:43; Start 05/18/16 at 14:45 Lidocaine/Sodium Bicarbonate (Buffered Lidocaine 1%) 20 ml STK-MED ONCE IJ ; Start 05/18/16 at 15:12; Stop 05/18/16 at 15:13; Status DC Fentanyl Citrate (Fentanyl 2ml Vial) 100 mcg STK-MED ONCE .ROUTE ; Start at 15:49; Stop 05/18/16 at 15:50; Status DC Midazolam HCl (Versed) 2 mg STK-MED ONCE .ROUTE ; Start 05/18/16 at 15:50; Stop 05/18/16 at 15:51; Status DC Heparin Sodium/ Sodium Chloride 1,000 unit 1X ONCE IART Last administered on 16:17; Start 05/18/16 at 16:00; Stop 05/18/16 at 16:12; Status DC Lidocaine/Sodium Bicarbonate (Buffered Lidocaine 1%) 20 ml 1X ONCE IJ Last administered on 05/18/16 16:16; Start 05/18/16 at 16:00; Stop 05/18/16 at 16:12 ; Status DC Midazolam HCl (Versed) 1 mg 1X ONCE IV Last administered on 05/18/16 16:13; Start 05/18/16 at 16:00; Stop 05/18/16 at 16:12; Status DC Fentanyl Citrate (Fentanyl 2ml Vial) 50 mcg 1X ONCE IV Last administered on 16:13; Start 05/18/16 at 16:00; Stop 05/18/16 at 16:12; Status DC Hydromorphone HCl (Dilaudid) 0.5 mg PRN Q2HR PRN IVP PAIN Last administered on 05/21/16 06:36; Start 05/18/16 at 16:30 Acetaminophen/ Hydrocodone Bitart (Lortab 5/325) 1 tab for pain 5-7 2 tabs ... PRN Q4HRS PRN PO PAIN; Start 05/18/16 at 17:15; Stop 05/19/16 at 08:59; Status DC Non-Formulary Medication 0.63 mg PRN Q4HRS PRN NEB WHEEZING; Start 05/18/16 at 17:15; Stop 05/18/16 at 17:22; Status DC Enoxaparin Sodium (Lovenox 40mg Syringe) 40 mg Q24H SQ Last administered on 05/20 16:38; Start 05/18/16 at 18:00 Pantoprazole Sodium (Protonix) 40 mg DAILYAC PO Last administered on 05/21/16 08:15; Start 05/18/16 at 17:30 Albuterol Sulfate (Ventolin Neb Soln) 2.5 mg PRN Q4HRS PRN NEB SHORTNESS OF BREATH Last administered on 05/20/16 00:28; Start 05/18/16 at 17:30 Fluoxetine HCl (Prozac) 20 mg STK-MED ONCE .ROUTE ; Start 05/19/16 at 07:37; Stop 05/19/16 at 07:38; Status DC Albuterol/ Ipratropium (Duoneb) 3 ml RTQID NEB Last administered on 05/21/16 11 :53; Start 05/19/16 at 09:00 Acetaminophen/ Hydrocodone Bitart (Lortab 5/325) 1 tab PRN Q4HRS PRN PO 1 tab for pain 5-7 Last administered on 05/20/16 06:24; Start 05/19/16 at 08:59 Acetaminophen/ Hydrocodone Bitart (Lortab 5/325) 2 tab PRN Q4HRS PRN PO PAIN LEVEL 8-10 Last administered on 05/21/16 08:18; Start 05/19/16 at 09:15 Dexamethasone (Decadron) 2 mg BID PO ; Start 05/19/16 at 21:00; Stop 05/19/16 at 21:00; Status DC Dexamethasone (Decadron) 2 mg BID PO Last administered on 05/21/16 08:17; Start 05/19/16 at 09:30 Fluoxetine HCl (Prozac) 60 mg DAILY PO Last administered on 05/21/16 08:15; Start 05/20/16 at 09:00 Fentanyl (Duragesic 12mcg/ Hr Patch) 1 patch Q72H TD Last administered on 08:18; Start 05/20/16 at 09:00 Alprazolam (Xanax) 1 mg PRN Q8HRS PRN PO ANXIETY / AGITATION Last administered on 05/21/16 08:15; Start 05/19/16 at 14:15 Methylprednisolone Sodium Succinate (Solu-Medrol 40mg Vial) 60 mg BID IV Last administered on 05/21/16 08:17; Start 05/19/16 at 21:00; Stop 05/21/16 at 10:21; Status DC Levofloxacin (Levaquin) 500 mg DAILY06 PO Last administered on 05/20/16 06:18; Start 05/20/16 at 06:00 Lisinopril (Prinivil) 10 mg 1X ONCE PO Last administered on 05/20/16 08:16; Start 05/20/16 at 07:00; Stop 05/20/16 at 07:01; Status DC Hydralazine HCl (Apresoline) 10 mg PRN Q4HRS PRN IVP ELEVATED BP, SEE COMMENTS Last administered on 05/21/16 00:03; Start 05/20/16 at 10:15 Lisinopril (Prinivil) 20 mg DAILY PO Last administered on 05/21/16 08:16; Start 05/20/16 at 11:00; Stop 05/21/16 at 10:21; Status DC Furosemide (Lasix) 40 mg 1X ONCE IVP Last administered on 05/20/16 14:40; Start 05/20/16 at 15:00; Stop 05/20/16 at 15:01; Status DC Lisinopril (Prinivil) 40 mg DAILY PO ; Start 05/22/16 at 09:00 Prednisone (Prednisone) 40 mg DAILY PO Last administered on 05/21/16 11:04; Start 05/21/16 at 11:00 Active Scripts Active Reported Centrum Women Tablet (Multivitamin/Iron/Folic Acid) 1 Each Tablet 1 Each PO Albuterol Sulfate Neb Soln (Albuterol Sulfate) 0.63 Mg/3 Ml Vial.neb 0.63 Mg NEB PRN Q4HRS PRN Proair Hfa Inhaler (Albuterol Sulfate) 8.5 Gm Hfa.aer.ad 1 Puff INH PRN Q6HRS PRN Lortab 5-325 mg Tablet (Hydrocodone/Acetaminophen) 1 Each Tablet 1-2 Tab PO Q4HRS PRN DURAGESIC 12mcg/hr (Fentanyl) 1 Each Patch.td72 1 Patch TD Q72H Bupropion Hcl 100 Mg Tablet 100 Mg PO Fluoxetine Hcl 40 Mg Capsule 60 Mg PO DAILY Ambien (Zolpidem Tartrate) 10 Mg Tablet 1 Tab PO QHS Vitals/I & O Vital Sign - Last 24 Hours 05/20/16 05/20/16 05/20/16 05/20/16 14:08 14:40 15:23 15:58 Temp 97.5 97.5 Pulse 102 102 Resp 20 24 B/P 178/96 179/96 Pulse Ox 91 92 O2 Delivery Nasal Cannula High Flow Nasal Cannula High Flow Nasal Cannula O2 Flow Rate 15.0 15.0 12.0 05/20/16 05/20/16 05/20/16 05/20/16 16:24 17:45 19:15 19:44 Temp 97.7 97.7 Pulse 112 122 112 Resp 20 22 B/P 155/90 164/90 145/86 Pulse Ox 91 88 96 O2 Delivery High Flow Nasal Cannula High Flow Nasal Cannula BiPAP/CPAP O2 Flow Rate 15.0 15.0 05/20/16 05/20/16 05/20/16 05/20/16 20:00 20:00 20:03 21:16 O2 Delivery Bi-pap BiPAP/CPAP Nasal Cannula O2 Flow Rate 15.0 15.0 05/20/16 05/20/16 05/20/16 05/20/16 21:20 22:10 23:38 23:48 Temp 97.5 97.5 Pulse 101 Resp 17 B/P 172/95 Pulse Ox 96 96 96 96 O2 Delivery BiPAP/CPAP BiPAP/CPAP BiPAP/CPAP 05/21/16 05/21/16 05/21/16 05/21/16 00:03 00:03 01:51 03:50 Temp 96.6 96.6 Pulse 101 103 Resp 18 B/P 172/95 138/76 Pulse Ox 96 95 O2 Delivery BiPAP/CPAP BiPAP/CPAP BiPAP/CPAP 05/21/16 05/21/16 05/21/16 05/21/16 04:46 06:36 07:26 07:55 Temp 97.1 97.1 Pulse 108 Resp 18 B/P 136/74 Pulse Ox 95 90 91 O2 Delivery BiPAP/CPAP BiPAP/CPAP BiPAP/CPAP High Flow Nasal Cannula O2 Flow Rate 15.0 05/21/16 05/21/16 05/21/16 05/21/16 08:00 08:00 08:14 08:16 Pulse 114 Resp 20 B/P 149/81 Pulse Ox 90 O2 Delivery Nasal Cannula High Flow Nasal Cannula O2 Flow Rate 15.0 15.0 15.0 05/21/16 05/21/16 05/21/16 05/21/16 08:18 09:37 11:00 11:53 Temp 97.7 97.7 Pulse 112 Resp 20 22 18 B/P 130/75 Pulse Ox 90 90 91 O2 Delivery High Flow Nasal Cannula Nasal Cannula High Flow Nasal Cannula High Flow Nasal Cannula O2 Flow Rate 15.0 15.0 15.0 15.0 Intake and Output 05/20/16 05/20/16 05/21/16 15:00 23:00 07:00 Intake Total 350 ml 0 ml Output Total 1000 ml Balance -650 ml 0 ml SHAY POP MD May 21, 2016 12:55
--- NOTE | 2016-05-21 12:56 | PDOC ---
Provider Note Provider Note [address] IV NSCLC with Left lower lobe primary diffuse osseous mets at DX. Admitted for increased SOB and hypoxia. Worse over the weekend since admit. On 15l NC with po2 now 89 to 90%. She was on BiPAP overnight. CT with PE protocol clear of PE. MRI brain multiple asymptomatic intracranial mets. On IV ATB and pulm therapy with steroids and diuretic therapy. Will begin planned palliative chest radiation and simulate for palliative whole brain radiation provided that she can tolerate supine positioning adequately. Discussed with patient and spouse. EZEQUIEL CRAFT MD May 21, 2016 12:56
[2016-05-21] MEDS ORDERED: LIDOCAINE 1% / SOD BICARB 8.4% 20 ML VIAL. IJ ONE ×2 (15:55→16:15)
--- NOTE | 2016-05-21 16:32 | PDOC2 ---
PALLIATIVE CARE Palliative Care Note Palliative Care Consult requested by Dr. Anderson to address goals of care Patient admitted with Hypoxia when at Radiation Treatment. Diagnosis: NSCLC (dx 05/05/2016) mets to brain. COPD, anxiety, depression Met with patient and briefly. Discussed AD and code status. Will have further discussion tomorrow. Plan family meeting tomorrow at 0900. DIEGO DOOLEY May 21, 2016 16:32
--- NOTE | 2016-05-21 16:33 | PDOC ---
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 Picc requested for blood draws and infusions. Post-Procedure Diagnosis Post-Procedure Diagnosis Same Procedure Performed Procedure Performed Image guided Power Picc insertion Type of Anesthesia Type of Anesthesia Local Estimated Blood Loss EBL: Minimal Drain/Tubes Drains/Tubes Right basilic vein 5F 2L 40cm Power Picc Condition of Patient Condition of Patient Stable. No apparent complication. Disposition Disposition From IR return to [facility]. OK to use Power Picc. Full report to follow. SUMMER HADDAD MD May 21, 2016 16:33
[2016-05-21] MEDS: ENOXAPARIN 40 MG/0.4 ML SYRINGE. SQ SCH (16:51)
--- NOTE | 2016-05-21 17:09 | PDOC ---
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 Objective Objective Vital Signs Date Time Temp Pulse Resp B/P Pulse Ox O2 Delivery O2 Flow Rate FiO2 05/21/16 15:50 110 19 139/82 96 High Flow Nasal Cannula 15.0 05/21/16 15:44 97.7 97.7 Intake and Output 05/21/16 07:00 Intake Total 350 ml Output Total 1000 ml Balance -650 ml Intake Oral 350 ml Output Urine Total 1000 ml # Voids 1 Physical Exam Heart: Normal S1, Normal S2 Lungs: Clear to auscultation Assessment Assessment Problems Medical Problems: (1) Acute respiratory failure with hypoxia Status: Acute (2) Community acquired pneumonia Status: Acute (3) Metastatic lung carcinoma Status: Acute (4) Sepsis Status: Acute (5) Severe protein-calorie malnutrition Status: Acute Assessment/Plan 1. 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 s/p bone biopsy. MRI of the brain reveals mets, agree with palliative radiation.. 1. Dyspnea progressively worse, likely secondary to lung malignancy. Her oxygen saturations have been dropping. She was admitted to [facility] and started on O2. 2. Bone metastasis. I will plan to initiate Xgeva after completion of palliative radiation therapy. Comment Review of Relevant I have reviewed the following items yesenia (where applicable) has been applied. Labs Laboratory Tests Test 05/20/16 13:00 O2 Saturation 98% (92-99) Arterial Blood pH 7.48 (7.35-7.45) Arterial Blood pCO2 at Patient Temp 31mmHg (35-46) Arterial Blood pO2 at Patient Temp 106mmHg (65-108) Arterial Blood HCO3 22mmol/L (21-28) Arterial Blood Base Excess -1mmol/L (-3-3) FiO2 60 Microbiology 05/18/16 Blood Culture - Preliminary, Resulted NO GROWTH AFTER 3 DAYS Medications Current Medications Sodium Chloride (Iv Sodium Chloride 0.9% 1000ml Bag) 1,000 ml @ 1,000 mls/hr Q1H IV Last administered on 05/17/16t 16:05; Start 05/17/16 at 15:44; Stop at 16:43; Status DC Albuterol/ Ipratropium (Duoneb) 6 ml 1X ONCE NEB Last administered on 16:11; Start 05/17/16 at 15:45; Stop 05/17/16 at 15:49; Status DC Methylprednisolone Sodium Succinate (Solu-Medrol 125mg Vial) 125 mg 1X ONCE IV Last administered on 05/17/16 16:05; Start 05/17/16 at 15:45; Stop 05/17/16 at 15:49; Status DC Acetaminophen/ Hydrocodone Bitart (Lortab 5/325) may give max of 8 pills/day PRN Q4HRS PRN PO PAIN Last administered on 05/18/16 23:22; Start 05/17/16 at 16:15; Stop 05/19/16 at 08:58; Status DC Ondansetron HCl 4 mg 4 mg PRN Q8HRS PRN IV NAUSEA/VOMITING; Start 05/17/16 at 17:00; Stop 05/18/16 at 16:59; Status DC Sodium Chloride (Iv Sodium Chloride 0.9% 1000ml Bag) 1,000 ml @ 100 mls/hr Q10H IV Last administered on 05/19/16 05:10; Start 05/17/16 at 16:46; Stop at 16:45; Status DC Albuterol/ Ipratropium (Duoneb) 3 ml RTQID NEB Last administered on 05/18/16 16:24; Start 05/17/16 at 20:00; Stop 05/18/16 at 19:59; Status DC Methylprednisolone Sodium Succinate (Solu-Medrol 40mg Vial) 60 mg Q6HRS IV Last administered on 05/19/16 17:06; Start 05/17/16 at 18:00; Stop 05/19/16 at 18 :41; Status DC Levofloxacin/ Dextrose 1 each 1 each PRN DAILY PRN MC SEE COMMENTS; Start 05/17 at 17:15; Stop 05/20/16 at 14:08; Status DC Levofloxacin/ Dextrose (LEVAQUIN 750mg PREMIX) 150 ml @ 100 mls/hr Q24H IV Last administered on 05/19/16 17:07; Start 05/17/16 at 18:00; Stop 05/19/16 at 20 :58; Status DC Fentanyl (Duragesic 12mcg/ Hr Patch) 1 patch Q72H TD Last administered on 23:17; Start 05/17/16 at 23:00; Stop 05/19/16 at 13:54; Status DC Fluoxetine HCl (Prozac) 60 mg DAILY PO Last administered on 05/19/16 07:44; Start 05/18/16 at 09:00; Stop 05/19/16 at 13:52; Status DC Zolpidem Tartrate (Ambien) 5 mg PRN QHS PRN PO INSOMNIA Last administered on 23:20; Start 05/17/16 at 23:00 Bupropion HCl (Wellbutrin) 100 mg DAILY PO Last administered on 05/21/16 08:17 ; Start 05/18/16 at 09:00 Zolpidem Tartrate (Ambien) 5 mg QHS PO Last administered on 05/20/16 20:02; Start 05/17/16 at 23:00 Gadobutrol (Gadavist) 4.5 mmol 1X ONCE IV Last administered on 05/18/16 11:15 ; Start 05/18/16 at 11:15; Stop 05/18/16 at 11:16; Status DC Iohexol (Omnipaque 300 Mg/ml) 75 ml 1X ONCE IV ; Start 05/18/16 at 13:30; Stop 05/18/16 at 13:31; Status DC Info (Do NOT chart on this entry -- for MONITORING) 1 each PRN DAILY PRN MC SEE COMMENTS; Start 05/18/16 at 13:30; Stop 05/20/16 at 13:29; Status DC Iohexol (Omnipaque 300 Mg/ml) 75 ml 1X ONCE IV ; Start 05/18/16 at 14:15; Stop 05/18/16 at 14:17; Status DC Info (Do NOT chart on this entry -- for MONITORING) 1 each PRN DAILY PRN MC SEE COMMENTS; Start 05/18/16 at 14:30; Stop 05/20/16 at 14:29; Status DC Bisacodyl (Dulcolax Tab) 10 mg PRN DAILY PRN PO CONSTIPATION Last administered on 05/19/16 08:43; Start 05/18/16 at 14:45 Lidocaine/Sodium Bicarbonate (Buffered Lidocaine 1%) 20 ml STK-MED ONCE IJ ; Start 05/18/16 at 15:12; Stop 05/18/16 at 15:13; Status DC Fentanyl Citrate (Fentanyl 2ml Vial) 100 mcg STK-MED ONCE .ROUTE ; Start at 15:49; Stop 05/18/16 at 15:50; Status DC Midazolam HCl (Versed) 2 mg STK-MED ONCE .ROUTE ; Start 05/18/16 at 15:50; Stop 05/18/16 at 15:51; Status DC Heparin Sodium/ Sodium Chloride 1,000 unit 1X ONCE IART Last administered on 16:17; Start 05/18/16 at 16:00; Stop 05/18/16 at 16:12; Status DC Lidocaine/Sodium Bicarbonate (Buffered Lidocaine 1%) 20 ml 1X ONCE IJ Last administered on 05/18/16 16:16; Start 05/18/16 at 16:00; Stop 05/18/16 at 16:12 ; Status DC Midazolam HCl (Versed) 1 mg 1X ONCE IV Last administered on 05/18/16 16:13; Start 05/18/16 at 16:00; Stop 05/18/16 at 16:12; Status DC Fentanyl Citrate (Fentanyl 2ml Vial) 50 mcg 1X ONCE IV Last administered on 16:13; Start 05/18/16 at 16:00; Stop 05/18/16 at 16:12; Status DC Hydromorphone HCl (Dilaudid) 0.5 mg PRN Q2HR PRN IVP PAIN Last administered on 05/21/16 06:36; Start 05/18/16 at 16:30 Acetaminophen/ Hydrocodone Bitart (Lortab 5/325) 1 tab for pain 5-7 2 tabs ... PRN Q4HRS PRN PO PAIN; Start 05/18/16 at 17:15; Stop 05/19/16 at 08:59; Status DC Non-Formulary Medication 0.63 mg PRN Q4HRS PRN NEB WHEEZING; Start 05/18/16 at 17:15; Stop 05/18/16 at 17:22; Status DC Enoxaparin Sodium (Lovenox 40mg Syringe) 40 mg Q24H SQ Last administered on 05/21 16:51; Start 05/18/16 at 18:00 Pantoprazole Sodium (Protonix) 40 mg DAILYAC PO Last administered on 05/21/16 08:15; Start 05/18/16 at 17:30 Albuterol Sulfate (Ventolin Neb Soln) 2.5 mg PRN Q4HRS PRN NEB SHORTNESS OF BREATH Last administered on 05/20/16 00:28; Start 05/18/16 at 17:30 Fluoxetine HCl (Prozac) 20 mg STK-MED ONCE .ROUTE ; Start 05/19/16 at 07:37; Stop 05/19/16 at 07:38; Status DC Albuterol/ Ipratropium (Duoneb) 3 ml RTQID NEB Last administered on 05/21/16 15 :38; Start 05/19/16 at 09:00 Acetaminophen/ Hydrocodone Bitart (Lortab 5/325) 1 tab PRN Q4HRS PRN PO 1 tab for pain 5-7 Last administered on 05/20/16 06:24; Start 05/19/16 at 08:59 Acetaminophen/ Hydrocodone Bitart (Lortab 5/325) 2 tab PRN Q4HRS PRN PO PAIN LEVEL 8-10 Last administered on 05/21/16 08:18; Start 05/19/16 at 09:15 Dexamethasone (Decadron) 2 mg BID PO ; Start 05/19/16 at 21:00; Stop 05/19/16 at 21:00; Status DC Dexamethasone (Decadron) 2 mg BID PO Last administered on 05/21/16 08:17; Start 05/19/16 at 09:30 Fluoxetine HCl (Prozac) 60 mg DAILY PO Last administered on 05/21/16 08:15; Start 05/20/16 at 09:00 Fentanyl (Duragesic 12mcg/ Hr Patch) 1 patch Q72H TD Last administered on 08:18; Start 05/20/16 at 09:00 Alprazolam (Xanax) 1 mg PRN Q8HRS PRN PO ANXIETY / AGITATION Last administered on 05/21/16 08:15; Start 05/19/16 at 14:15 Methylprednisolone Sodium Succinate (Solu-Medrol 40mg Vial) 60 mg BID IV Last administered on 05/21/16 08:17; Start 05/19/16 at 21:00; Stop 05/21/16 at 10:21; Status DC Levofloxacin (Levaquin) 500 mg DAILY06 PO Last administered on 05/20/16 06:18; Start 05/20/16 at 06:00 Lisinopril (Prinivil) 10 mg 1X ONCE PO Last administered on 05/20/16 08:16; Start 05/20/16 at 07:00; Stop 05/20/16 at 07:01; Status DC Hydralazine HCl (Apresoline) 10 mg PRN Q4HRS PRN IVP ELEVATED BP, SEE COMMENTS Last administered on 05/21/16 00:03; Start 05/20/16 at 10:15 Lisinopril (Prinivil) 20 mg DAILY PO Last administered on 05/21/16 08:16; Start 05/20/16 at 11:00; Stop 05/21/16 at 10:21; Status DC Furosemide (Lasix) 40 mg 1X ONCE IVP Last administered on 05/20/16 14:40; Start 05/20/16 at 15:00; Stop 05/20/16 at 15:01; Status DC Lisinopril (Prinivil) 40 mg DAILY PO ; Start 05/22/16 at 09:00 Prednisone (Prednisone) 40 mg DAILY PO Last administered on 05/21/16 11:04; Start 05/21/16 at 11:00 Heparin Sodium/ Sodium Chloride 1,000 unit 1X ONCE IART Last administered on 16:32; Start 05/21/16 at 16:15; Stop 05/21/16 at 16:17; Status DC Lidocaine/Sodium Bicarbonate (Buffered Lidocaine 1%) 20 ml 1X ONCE IJ Last administered on 05/21/16 16:32; Start 05/21/16 at 16:15; Stop 05/21/16 at 16:17; Status DC Active Scripts Active Reported Centrum Women Tablet (Multivitamin/Iron/Folic Acid) 1 Each Tablet 1 Each PO Albuterol Sulfate Neb Soln (Albuterol Sulfate) 0.63 Mg/3 Ml Vial.neb 0.63 Mg NEB PRN Q4HRS PRN Proair Hfa Inhaler (Albuterol Sulfate) 8.5 Gm Hfa.aer.ad 1 Puff INH PRN Q6HRS PRN Lortab 5-325 mg Tablet (Hydrocodone/Acetaminophen) 1 Each Tablet 1-2 Tab PO Q4HRS PRN DURAGESIC 12mcg/hr (Fentanyl) 1 Each Patch.td72 1 Patch TD Q72H Bupropion Hcl 100 Mg Tablet 100 Mg PO Fluoxetine Hcl 40 Mg Capsule 60 Mg PO DAILY Ambien (Zolpidem Tartrate) 10 Mg Tablet 1 Tab PO QHS Vitals/I & O Vital Sign - Last 24 Hours 05/20/16 05/20/16 05/20/16 05/20/16 17:45 19:15 19:44 20:00 Temp 97.7 97.7 Pulse 122 112 Resp 22 B/P 164/90 145/86 Pulse Ox 88 96 O2 Delivery High Flow Nasal Cannula BiPAP/CPAP Bi-pap O2 Flow Rate 15.0 05/20/16 05/20/16 05/20/16 05/20/16 20:00 20:03 21:16 21:20 Pulse Ox 96 O2 Delivery BiPAP/CPAP Nasal Cannula O2 Flow Rate 15.0 15.0 05/20/16 05/20/16 05/20/16 05/21/16 22:10 23:38 23:48 00:03 Temp 97.5 97.5 Pulse 101 Resp 17 B/P 172/95 Pulse Ox 96 96 96 O2 Delivery BiPAP/CPAP BiPAP/CPAP BiPAP/CPAP BiPAP/CPAP 05/21/16 05/21/16 05/21/16 05/21/16 00:03 01:51 03:50 04:46 Temp 96.6 96.6 Pulse 101 103 Resp 18 B/P 172/95 138/76 Pulse Ox 96 95 95 O2 Delivery BiPAP/CPAP BiPAP/CPAP BiPAP/CPAP 05/21/16 05/21/16 05/21/16 05/21/16 06:36 07:26 07:55 08:00 Temp 97.1 97.1 Pulse 108 Resp 18 B/P 136/74 Pulse Ox 90 91 O2 Delivery BiPAP/CPAP BiPAP/CPAP High Flow Nasal Cannula O2 Flow Rate 15.0 15.0 05/21/16 05/21/16 05/21/16 05/21/16 08:00 08:14 08:16 08:18 Pulse 114 Resp 20 20 B/P 149/81 Pulse Ox 90 90 O2 Delivery Nasal Cannula High Flow Nasal Cannula High Flow Nasal Cannula O2 Flow Rate 15.0 15.0 15.0 05/21/16 05/21/16 05/21/16 05/21/16 09:37 11:00 11:53 15:40 Temp 97.7 97.7 Pulse 112 Resp 22 18 B/P 130/75 Pulse Ox 90 91 93 O2 Delivery Nasal Cannula High Flow Nasal Cannula High Flow Nasal Cannula High Flow Nasal Cannula O2 Flow Rate 15.0 15.0 15.0 15.0 05/21/16 05/21/16 15:44 15:50 Temp 97.7 97.7 Pulse 105 110 Resp 18 19 B/P 164/80 139/82 Pulse Ox 90 96 O2 Delivery High Flow Nasal Cannula High Flow Nasal Cannula O2 Flow Rate 15.0 15.0 Intake and Output 05/20/16 05/20/16 05/21/16 15:00 23:00 07:00 Intake Total 350 ml 0 ml Output Total 1000 ml Balance -650 ml 0 ml DERICK RIDDLE MD May 21, 2016 17:09
[2016-05-21] MEDS: FUROSEMIDE 40 MG/4 ML VIAL. IVP SCH (17:27)
[2016-05-21] MEDS: ZOLPIDEM 5 MG TABLET. PO SCH (20:56)
[2016-05-22] MEDS: LORAZEPAM 2 MG/ML VIAL. IV PRN ×5 (01:15→21:11)
[2016-05-22 03:00] VITALS: BP 133/81
[2016-05-22 04:42] LABS: BASO % 0 % (0-3); EOS % 0 % (0-3); HEMATOCRIT 34.6 % (36.0-47.0); HEMOGLOBIN 11.1 g/dL (12.0-15.5); LYMPH % 4 % (24-48); MEAN CORPUSCULAR HEMOGLOBIN 30 pg (25-35); MEAN CORPUSCULAR HGB CONC 32 g/dL (31-37); MEAN CORPUSCULAR VOLUME 94 fL (79-100); MONO % 3 % (0-9); NEUT % 94 % (31-73); PLATELET COUNT 408 x10^3/uL (140-400); RED BLOOD COUNT 3.69 x10^6/uL (3.50-5.40); WHITE BLOOD COUNT 25.8 x10^3/uL (4.0-11.0)
[2016-05-22] MEDS: LEVOFLOXACIN 500 MG TABLET PO SCH (05:15)
[2016-05-22 05:41] LABS: CALCIUM 9.3 mg/dL (8.5-10.1); CREATININE 0.9 mg/dL (0.6-1.0); GFR 62.6; POTASSIUM 3.6 mmol/L (3.5-5.1)
--- NOTE | 2016-05-22 06:50 | RAD ---
Ultrasound and fluoro guided power PICC placement Indication: 65-year-old female with non-small cell lung cancer. She has no peripheral IV access. PICC insertion has been requested for blood draws and infusions. Fluoro time: 0.2 minutes Kerma-Area Product: 0.4 Gycm2 Anesthesia: Local only Sterility: All elements of maximal sterile barrier technique were utilized, including cap, mask, sterile gown, sterile gloves, large sterile sheet, appropriate hand hygiene, and 2% chlorhexidine for cutaneous antisepsis Procedure: Informed consent was obtained from the patient. She was placed supine on the angiography table. Preliminary ultrasound examination of right upper arm revealed wide patency of right basilic vein, which was documented with a hard copy ultrasound image. Right upper arm was then prepped and draped in the usual sterile fashion, utilizing all elements of maximal sterile barrier technique, as described above. Using aseptic technique, local anesthesia, direct ultrasound guidance, and the micropuncture system, successful percutaneous entry was achieved into right basilic vein at the level of distal humerus. A 5 Turkish dual lumen power PICC was trimmed to 40 cm in length, was inserted through a 5 Turkish peel-away sheath, and was easily advanced centrally under fluoroscopic control. Tip of the power PICC was positioned at upper right atrium. This was documented with a single fluoroscopic spot image. The PICC was then demonstrated to flush and aspirate normally, and was secured at the skin exit site utilizing suture and sterile dressing. The patient tolerated the procedure well without apparent complication. Impression: Successful, uneventful ultrasound and fluoro guided placement of right basilic vein 5 Turkish dual-lumen 40 cm power PICC, as described.
[2016-05-22 07:00] VITALS: BP 137/81
[2016-05-22] MEDS: PANTOPRAZOLE 40 MG TABLET.DR. PO SCH (07:30)
[2016-05-22] MEDS: IPRATRPIUM/ALBUTEROL 0.5/2.5MG 3 ML NEBU. NEB SCH ×4 (07:47→19:15)
--- NOTE | 2016-05-22 08:52 | PDOC ---
PULMONARY PROGRESS NOTES Subjective PT ABOUT THE SAME SLIGHTLY INCREASE SOA BACK ON BIPAP Vitals Vital Signs Date Time Temp Pulse Resp B/P Pulse Ox O2 Delivery O2 Flow Rate FiO2 05/22/16 08:00 Bi-pap 05/22/16 07:48 93 6.0 05/22/16 07:00 114 14 137/81 05/22/16 03:00 98.9 98.9 ROS: No Nausea, No Chest Pain, No Abdominal Pain, No Increase Cough General: Alert Lungs: Other (decrease bs) Cardiovascular: S1, S2 Abdomen: Soft Neuro Exam: Alert Extremities: No Edema Skin: Warm Labs Laboratory Tests Test 05/20/16 13:00 05/22/16 04:15 O2 Saturation 98% (92-99) Arterial Blood pH 7.48 (7.35-7.45) Arterial Blood pCO2 at Patient Temp 31mmHg (35-46) Arterial Blood pO2 at Patient Temp 106mmHg (65-108) Arterial Blood HCO3 22mmol/L (21-28) Arterial Blood Base Excess -1mmol/L (-3-3) FiO2 60 White Blood Count 25.8x10^3/uL (4.0-11.0) Red Blood Count 3.69x10^6/uL (3.50-5.40) Hemoglobin 11.1g/dL (12.0-15.5) Hematocrit 34.6% (36.0-47.0) Mean Corpuscular Volume 94fL (79-100) Mean Corpuscular Hemoglobin 30pg (25-35) Mean Corpuscular Hemoglobin Concent 32g/dL (31-37) Red Cell Distribution Width 14.0% (11.5-14.5) Platelet Count 408x10^3/uL (140-400) Neutrophils (%) (Auto) 94% (31-73) Lymphocytes (%) (Auto) 4% (24-48) Monocytes (%) (Auto) 3% (0-9) Eosinophils (%) (Auto) 0% (0-3) Basophils (%) (Auto) 0% (0-3) Neutrophils # (Auto) 24.2x10^3uL (1.8-7.7) Lymphocytes # (Auto) 1.0x10^3/uL (1.0-4.8) Monocytes # (Auto) 0.6x10^3/uL (0.0-1.1) Eosinophils # (Auto) 0.0x10^3/uL (0.0-0.7) Basophils # (Auto) 0.0x10^3/uL (0.0-0.2) Sodium Level 142mmol/L (136-145) Potassium Level 3.6mmol/L (3.5-5.1) Chloride Level 103mmol/L (98-107) Carbon Dioxide Level 31mmol/L (21-32) Anion Gap 8 (6-14) Blood Urea Nitrogen 28mg/dL (7-20) Creatinine 0.9mg/dL (0.6-1.0) Estimated GFR (Cockcroft-Gault) 62.6 Glucose Level 107mg/dL (70-99) Calcium Level 9.3mg/dL (8.5-10.1) Laboratory Tests Test 05/22/16 04:15 White Blood Count 25.8x10^3/uL (4.0-11.0) Red Blood Count 3.69x10^6/uL (3.50-5.40) Hemoglobin 11.1g/dL (12.0-15.5) Hematocrit 34.6% (36.0-47.0) Mean Corpuscular Volume 94fL (79-100) Mean Corpuscular Hemoglobin 30pg (25-35) Mean Corpuscular Hemoglobin Concent 32g/dL (31-37) Red Cell Distribution Width 14.0% (11.5-14.5) Platelet Count 408x10^3/uL (140-400) Neutrophils (%) (Auto) 94% (31-73) Lymphocytes (%) (Auto) 4% (24-48) Monocytes (%) (Auto) 3% (0-9) Eosinophils (%) (Auto) 0% (0-3) Basophils (%) (Auto) 0% (0-3) Neutrophils # (Auto) 24.2x10^3uL (1.8-7.7) Lymphocytes # (Auto) 1.0x10^3/uL (1.0-4.8) Monocytes # (Auto) 0.6x10^3/uL (0.0-1.1) Eosinophils # (Auto) 0.0x10^3/uL (0.0-0.7) Basophils # (Auto) 0.0x10^3/uL (0.0-0.2) Sodium Level 142mmol/L (136-145) Potassium Level 3.6mmol/L (3.5-5.1) Chloride Level 103mmol/L (98-107) Carbon Dioxide Level 31mmol/L (21-32) Anion Gap 8 (6-14) Blood Urea Nitrogen 28mg/dL (7-20) Creatinine 0.9mg/dL (0.6-1.0) Estimated GFR (Cockcroft-Gault) 62.6 Glucose Level 107mg/dL (70-99) Calcium Level 9.3mg/dL (8.5-10.1) Medications Active Scripts Medications Dose Route/Sig Days Date Category Albuterol Sulfate Neb Soln (Albuterol Sulfate) 0.63 Mg/3 Ml Vial.neb 0.63 Mg NEB PRN Q4HRS PRN 05/17/16 Reported Proair Hfa Inhaler (Albuterol Sulfate) 8.5 Gm Hfa.aer.ad 1 Puff INH PRN Q6HRS PRN 05/17/16 Reported Lortab 5-325 mg Tablet (Hydrocodone/Acetaminophen) 1 Each Tablet 1-2 Tab PO Q4HRS PRN 05/17/16 Reported DURAGESIC 12mcg/hr (Fentanyl) 1 Each Patch.td72 1 Patch TD Q72H 05/17/16 Reported Bupropion Hcl 100 Mg Tablet 100 Mg PO 04/25/16 Reported Fluoxetine Hcl 40 Mg Capsule 60 Mg PO DAILY 04/25/16 Reported Ambien (Zolpidem Tartrate) 10 Mg Tablet 1 Tab PO QHS 04/25/16 Reported Impression . 1. 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 3. Acute and Chronic resp failure multifactorial advance disease possible pneumonia, AECOPD 4. History of tobacco use, quit in April of this year. 5. Anxiety. 6. Depression. 7. NO PE, 8. Possible non cardiogenic edema, could be lymphangitic spread pt with increase jannet Plan . 1. We will treat for presumptive pneumonia with antibiotics. 2. XRT per Dr Robinow 3. steroids 4. 02 5. Nebs 6. Lasix times one 7. Would rec DNR TINO AGOSTO MD May 22, 2016 08:52
[2016-05-22] MEDS: FLUOXETINE HCL 20 MG CAPSULE. PO SCH (09:00)
[2016-05-22] MEDS: DEXAMETHASONE 1 MG TABLET PO SCH (09:00)
[2016-05-22] MEDS ORDERED: LISINOPRIL 20 MG TABLET PO SCH (09:00)
[2016-05-22] MEDS: buPROPion 100 MG TABLET PO SCH (09:00)
[2016-05-22] MEDS: FUROSEMIDE 40 MG/4 ML VIAL. IVP SCH (09:29)
[2016-05-22] MEDS: hydrALAZINE 20 MG/ML VIAL. IVP PRN (09:34)
[2016-05-22] MEDS: HALOPERIDOL LACTATE 5 MG/ML VIAL. IVP PRN ×3 (09:36→20:15)
[2016-05-22 11:00] VITALS: BP 138/78
[2016-05-22] MEDS: methylPREDNISolone SOD SUCC PF 40 MG/ML VIAL. IV SCH ×2 (12:22→21:10)
[2016-05-22] MEDS: HYDROMORPHONE 2 MG/ML VIAL. IVP PRN ×2 (12:24→15:02)
--- NOTE | 2016-05-22 12:32 | PDOC ---
PROGRESS NOTES Chief Complaint Chief Complaint Acute hypoxic respir failure ASSESSMENT AND PLAN: 1. COPD exacerbation: more hypoxic with sats only in 80s on 15L. switched to BiPAP PRN. on steroids, nebs, suppl O2 2. ? (postobstruct) PNA: levaquin 3. 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 Brain mets: starting XRT next week. decadron 2 bid 5. pain control: PO and IV opioids. advised to use PO 6. HTN: poorly controlled O/N. no hx. start lisinopril; hydralazine PRN 7. Depression: stable mood. continue home meds 8. Prophylaxis: Lovenox, PPI 9. IV access: lost peripheral access; will need central line for meds and labs plan: 1. fu with pulm, RT, onco 2. rt for lung Ca and brain mets this week 3. need PICC pine. dc decadrone 4. increase lisinopril to 40mg daily pt gets worse rapidly, PAT consulted, DNR now, need hospice. hope taper bipap to high flow. check CXR, change po meds to iv if could ativan prn History of Present Illness History of Present Illness still very sob, agitation, need bipap today on 05/21 pt looks lethargic, arousable tho, answer questions and follow commands, no complain 05/22 pt gets worse, not really answer questions Vitals Vitals Vital Signs Date Time Temp Pulse Resp B/P Pulse Ox O2 Delivery O2 Flow Rate FiO2 05/22/16 11:20 93 High Flow Nasal Cannula 6.0 05/22/16 11:00 97.9 137 14 138/78 97.9 Physical Exam General: Alert, Oriented X3, Cooperative, No acute distress Heart: Normal S1, Normal S2 Lungs: Other (bl coarse bs) Abdomen: Normal bowel sounds, No tenderness Extremities: No clubbing Skin: No rashes Labs LABS Laboratory Tests Test 05/22/16 04:15 White Blood Count 25.8x10^3/uL (4.0-11.0) Red Blood Count 3.69x10^6/uL (3.50-5.40) Hemoglobin 11.1g/dL (12.0-15.5) Hematocrit 34.6% (36.0-47.0) Mean Corpuscular Volume 94fL (79-100) Mean Corpuscular Hemoglobin 30pg (25-35) Mean Corpuscular Hemoglobin Concent 32g/dL (31-37) Red Cell Distribution Width 14.0% (11.5-14.5) Platelet Count 408x10^3/uL (140-400) Neutrophils (%) (Auto) 94% (31-73) Lymphocytes (%) (Auto) 4% (24-48) Monocytes (%) (Auto) 3% (0-9) Eosinophils (%) (Auto) 0% (0-3) Basophils (%) (Auto) 0% (0-3) Neutrophils # (Auto) 24.2x10^3uL (1.8-7.7) Lymphocytes # (Auto) 1.0x10^3/uL (1.0-4.8) Monocytes # (Auto) 0.6x10^3/uL (0.0-1.1) Eosinophils # (Auto) 0.0x10^3/uL (0.0-0.7) Basophils # (Auto) 0.0x10^3/uL (0.0-0.2) Sodium Level 142mmol/L (136-145) Potassium Level 3.6mmol/L (3.5-5.1) Chloride Level 103mmol/L (98-107) Carbon Dioxide Level 31mmol/L (21-32) Anion Gap 8 (6-14) Blood Urea Nitrogen 28mg/dL (7-20) Creatinine 0.9mg/dL (0.6-1.0) Estimated GFR (Cockcroft-Gault) 62.6 Glucose Level 107mg/dL (70-99) Calcium Level 9.3mg/dL (8.5-10.1) Review of Systems Review of Systems no fever, chills, chest pain Assessment and Plan Assessmemt and Plan Problems Medical Problems: (1) Acute respiratory failure with hypoxia Status: Acute (2) Community acquired pneumonia Status: Acute (3) Metastatic lung carcinoma Status: Acute (4) Sepsis Status: Acute (5) Severe protein-calorie malnutrition Status: Acute Problems: Comment Review of Relevant I have reviewed the following items yesenia (where applicable) has been applied. Labs Laboratory Tests Test 05/20/16 13:00 05/22/16 04:15 O2 Saturation 98% (92-99) Arterial Blood pH 7.48 (7.35-7.45) Arterial Blood pCO2 at Patient Temp 31mmHg (35-46) Arterial Blood pO2 at Patient Temp 106mmHg (65-108) Arterial Blood HCO3 22mmol/L (21-28) Arterial Blood Base Excess -1mmol/L (-3-3) FiO2 60 White Blood Count 25.8x10^3/uL (4.0-11.0) Red Blood Count 3.69x10^6/uL (3.50-5.40) Hemoglobin 11.1g/dL (12.0-15.5) Hematocrit 34.6% (36.0-47.0) Mean Corpuscular Volume 94fL (79-100) Mean Corpuscular Hemoglobin 30pg (25-35) Mean Corpuscular Hemoglobin Concent 32g/dL (31-37) Red Cell Distribution Width 14.0% (11.5-14.5) Platelet Count 408x10^3/uL (140-400) Neutrophils (%) (Auto) 94% (31-73) Lymphocytes (%) (Auto) 4% (24-48) Monocytes (%) (Auto) 3% (0-9) Eosinophils (%) (Auto) 0% (0-3) Basophils (%) (Auto) 0% (0-3) Neutrophils # (Auto) 24.2x10^3uL (1.8-7.7) Lymphocytes # (Auto) 1.0x10^3/uL (1.0-4.8) Monocytes # (Auto) 0.6x10^3/uL (0.0-1.1) Eosinophils # (Auto) 0.0x10^3/uL (0.0-0.7) Basophils # (Auto) 0.0x10^3/uL (0.0-0.2) Sodium Level 142mmol/L (136-145) Potassium Level 3.6mmol/L (3.5-5.1) Chloride Level 103mmol/L (98-107) Carbon Dioxide Level 31mmol/L (21-32) Anion Gap 8 (6-14) Blood Urea Nitrogen 28mg/dL (7-20) Creatinine 0.9mg/dL (0.6-1.0) Estimated GFR (Cockcroft-Gault) 62.6 Glucose Level 107mg/dL (70-99) Calcium Level 9.3mg/dL (8.5-10.1) Laboratory Tests Test 05/22/16 04:15 White Blood Count 25.8x10^3/uL (4.0-11.0) Red Blood Count 3.69x10^6/uL (3.50-5.40) Hemoglobin 11.1g/dL (12.0-15.5) Hematocrit 34.6% (36.0-47.0) Mean Corpuscular Volume 94fL (79-100) Mean Corpuscular Hemoglobin 30pg (25-35) Mean Corpuscular Hemoglobin Concent 32g/dL (31-37) Red Cell Distribution Width 14.0% (11.5-14.5) Platelet Count 408x10^3/uL (140-400) Neutrophils (%) (Auto) 94% (31-73) Lymphocytes (%) (Auto) 4% (24-48) Monocytes (%) (Auto) 3% (0-9) Eosinophils (%) (Auto) 0% (0-3) Basophils (%) (Auto) 0% (0-3) Neutrophils # (Auto) 24.2x10^3uL (1.8-7.7) Lymphocytes # (Auto) 1.0x10^3/uL (1.0-4.8) Monocytes # (Auto) 0.6x10^3/uL (0.0-1.1) Eosinophils # (Auto) 0.0x10^3/uL (0.0-0.7) Basophils # (Auto) 0.0x10^3/uL (0.0-0.2) Sodium Level 142mmol/L (136-145) Potassium Level 3.6mmol/L (3.5-5.1) Chloride Level 103mmol/L (98-107) Carbon Dioxide Level 31mmol/L (21-32) Anion Gap 8 (6-14) Blood Urea Nitrogen 28mg/dL (7-20) Creatinine 0.9mg/dL (0.6-1.0) Estimated GFR (Cockcroft-Gault) 62.6 Glucose Level 107mg/dL (70-99) Calcium Level 9.3mg/dL (8.5-10.1) Microbiology 05/18/16 Blood Culture - Preliminary, Resulted NO GROWTH AFTER 4 DAYS Medications Current Medications Sodium Chloride (Iv Sodium Chloride 0.9% 1000ml Bag) 1,000 ml @ 1,000 mls/hr Q1H IV Last administered on 05/17/16 16:05; Start 05/17/16 at 15:44; Stop at 16:43; Status DC Albuterol/ Ipratropium (Duoneb) 6 ml 1X ONCE NEB Last administered on 16:11; Start 05/17/16 at 15:45; Stop 05/17/16 at 15:49; Status DC Methylprednisolone Sodium Succinate (Solu-Medrol 125mg Vial) 125 mg 1X ONCE IV Last administered on 05/17/16 16:05; Start 05/17/16 at 15:45; Stop 05/17/16 at 15:49; Status DC Acetaminophen/ Hydrocodone Bitart (Lortab 5/325) may give max of 8 pills/day PRN Q4HRS PRN PO PAIN Last administered on 05/18/16 23:22; Start 05/17/16 at 16:15; Stop 05/19/16 at 08:58; Status DC Ondansetron HCl 4 mg 4 mg PRN Q8HRS PRN IV NAUSEA/VOMITING; Start 05/17/16 at 17:00; Stop 05/18/16 at 16:59; Status DC Sodium Chloride (Iv Sodium Chloride 0.9% 1000ml Bag) 1,000 ml @ 100 mls/hr Q10H IV Last administered on 05/19/16 05:10; Start 05/17/16 at 16:46; Stop at 16:45; Status DC Albuterol/ Ipratropium (Duoneb) 3 ml RTQID NEB Last administered on 05/18/16 16:24; Start 05/17/16 at 20:00; Stop 05/18/16 at 19:59; Status DC Methylprednisolone Sodium Succinate (Solu-Medrol 40mg Vial) 60 mg Q6HRS IV Last administered on 05/19/16 17:06; Start 05/17/16 at 18:00; Stop 05/19/16 at 18 :41; Status DC Levofloxacin/ Dextrose 1 each 1 each PRN DAILY PRN MC SEE COMMENTS; Start 05/17 at 17:15; Stop 05/20/16 at 14:08; Status DC Levofloxacin/ Dextrose (LEVAQUIN 750mg PREMIX) 150 ml @ 100 mls/hr Q24H IV Last administered on 05/19/16 17:07; Start 05/17/16 at 18:00; Stop 05/19/16 at 20 :58; Status DC Fentanyl (Duragesic 12mcg/ Hr Patch) 1 patch Q72H TD Last administered on 23:17; Start 05/17/16 at 23:00; Stop 05/19/16 at 13:54; Status DC Fluoxetine HCl (Prozac) 60 mg DAILY PO Last administered on 05/19/16 07:44; Start 05/18/16 at 09:00; Stop 05/19/16 at 13:52; Status DC Zolpidem Tartrate (Ambien) 5 mg PRN QHS PRN PO INSOMNIA Last administered on 23:20; Start 05/17/16 at 23:00 Bupropion HCl (Wellbutrin) 100 mg DAILY PO Last administered on 05/21/16 08:17 ; Start 05/18/16 at 09:00 Zolpidem Tartrate (Ambien) 5 mg QHS PO Last administered on 05/21/16 20:56; Start 05/17/16 at 23:00 Gadobutrol (Gadavist) 4.5 mmol 1X ONCE IV Last administered on 05/18/16 11:15 ; Start 05/18/16 at 11:15; Stop 05/18/16 at 11:16; Status DC Iohexol (Omnipaque 300 Mg/ml) 75 ml 1X ONCE IV ; Start 05/18/16 at 13:30; Stop 05/18/16 at 13:31; Status DC Info (Do NOT chart on this entry -- for MONITORING) 1 each PRN DAILY PRN MC SEE COMMENTS; Start 05/18/16 at 13:30; Stop 05/20/16 at 13:29; Status DC Iohexol (Omnipaque 300 Mg/ml) 75 ml 1X ONCE IV ; Start 05/18/16 at 14:15; Stop 05/18/16 at 14:17; Status DC Info (Do NOT chart on this entry -- for MONITORING) 1 each PRN DAILY PRN MC SEE COMMENTS; Start 05/18/16 at 14:30; Stop 05/20/16 at 14:29; Status DC Bisacodyl (Dulcolax Tab) 10 mg PRN DAILY PRN PO CONSTIPATION Last administered on 05/19/16 08:43; Start 05/18/16 at 14:45 Lidocaine/Sodium Bicarbonate (Buffered Lidocaine 1%) 20 ml STK-MED ONCE IJ ; Start 05/18/16 at 15:12; Stop 05/18/16 at 15:13; Status DC Fentanyl Citrate (Fentanyl 2ml Vial) 100 mcg STK-MED ONCE .ROUTE ; Start at 15:49; Stop 05/18/16 at 15:50; Status DC Midazolam HCl (Versed) 2 mg STK-MED ONCE .ROUTE ; Start 05/18/16 at 15:50; Stop 05/18/16 at 15:51; Status DC Heparin Sodium/ Sodium Chloride 1,000 unit 1X ONCE IART Last administered on 16:17; Start 05/18/16 at 16:00; Stop 05/18/16 at 16:12; Status DC Lidocaine/Sodium Bicarbonate (Buffered Lidocaine 1%) 20 ml 1X ONCE IJ Last administered on 05/18/16 16:16; Start 05/18/16 at 16:00; Stop 05/18/16 at 16:12 ; Status DC Midazolam HCl (Versed) 1 mg 1X ONCE IV Last administered on 05/18/16 16:13; Start 05/18/16 at 16:00; Stop 05/18/16 at 16:12; Status DC Fentanyl Citrate (Fentanyl 2ml Vial) 50 mcg 1X ONCE IV Last administered on 16:13; Start 05/18/16 at 16:00; Stop 05/18/16 at 16:12; Status DC Hydromorphone HCl (Dilaudid) 0.5 mg PRN Q2HR PRN IVP PAIN Last administered on 05/21/16 06:36; Start 05/18/16 at 16:30 Acetaminophen/ Hydrocodone Bitart (Lortab 5/325) 1 tab for pain 5-7 2 tabs ... PRN Q4HRS PRN PO PAIN; Start 05/18/16 at 17:15; Stop 05/19/16 at 08:59; Status DC Non-Formulary Medication 0.63 mg PRN Q4HRS PRN NEB WHEEZING; Start 05/18/16 at 17:15; Stop 05/18/16 at 17:22; Status DC Enoxaparin Sodium (Lovenox 40mg Syringe) 40 mg Q24H SQ Last administered on 05/21 16:51; Start 05/18/16 at 18:00 Pantoprazole Sodium (Protonix) 40 mg DAILYAC PO Last administered on 05/21/16 08:15; Start 05/18/16 at 17:30 Albuterol Sulfate (Ventolin Neb Soln) 2.5 mg PRN Q4HRS PRN NEB SHORTNESS OF BREATH Last administered on 05/20/16 00:28; Start 05/18/16 at 17:30 Fluoxetine HCl (Prozac) 20 mg STK-MED ONCE .ROUTE ; Start 05/19/16 at 07:37; Stop 05/19/16 at 07:38; Status DC Albuterol/ Ipratropium (Duoneb) 3 ml RTQID NEB Last administered on 05/22/16 11 :19; Start 05/19/16 at 09:00 Acetaminophen/ Hydrocodone Bitart (Lortab 5/325) 1 tab PRN Q4HRS PRN PO 1 tab for pain 5-7 Last administered on 05/20/16 06:24; Start 05/19/16 at 08:59 Acetaminophen/ Hydrocodone Bitart (Lortab 5/325) 2 tab PRN Q4HRS PRN PO PAIN LEVEL 8-10 Last administered on 05/21/16 21:02; Start 05/19/16 at 09:15 Dexamethasone (Decadron) 2 mg BID PO ; Start 05/19/16 at 21:00; Stop 05/19/16 at 21:00; Status DC Dexamethasone (Decadron) 2 mg BID PO Last administered on 05/21/16 20:56; Start 05/19/16 at 09:30 Fluoxetine HCl (Prozac) 60 mg DAILY PO Last administered on 05/21/16 08:15; Start 05/20/16 at 09:00 Fentanyl (Duragesic 12mcg/ Hr Patch) 1 patch Q72H TD Last administered on 08:18; Start 05/20/16 at 09:00 Alprazolam (Xanax) 1 mg PRN Q8HRS PRN PO ANXIETY / AGITATION Last administered on 05/21/16 20:56; Start 05/19/16 at 14:15 Methylprednisolone Sodium Succinate (Solu-Medrol 40mg Vial) 60 mg BID IV Last administered on 05/21/16 08:17; Start 05/19/16 at 21:00; Stop 05/21/16 at 10:21; Status DC Levofloxacin (Levaquin) 500 mg DAILY06 PO Last administered on 05/22/16 05:15; Start 05/20/16 at 06:00; Stop 05/22/16 at 10:47; Status DC Lisinopril (Prinivil) 10 mg 1X ONCE PO Last administered on 05/20/16 08:16; Start 05/20/16 at 07:00; Stop 05/20/16 at 07:01; Status DC Hydralazine HCl (Apresoline) 10 mg PRN Q4HRS PRN IVP ELEVATED BP, SEE COMMENTS Last administered on 05/22/16 09:34; Start 05/20/16 at 10:15 Lisinopril (Prinivil) 20 mg DAILY PO Last administered on 05/21/16 08:16; Start 05/20/16 at 11:00; Stop 05/21/16 at 10:21; Status DC Furosemide (Lasix) 40 mg 1X ONCE IVP Last administered on 05/20/16 14:40; Start 05/20/16 at 15:00; Stop 05/20/16 at 15:01; Status DC Lisinopril (Prinivil) 40 mg DAILY PO ; Start 05/22/16 at 09:00 Prednisone (Prednisone) 40 mg DAILY PO Last administered on 05/21/16 11:04; Start 05/21/16 at 11:00; Stop 05/22/16 at 10:47; Status DC Heparin Sodium/ Sodium Chloride 1,000 unit 1X ONCE IART Last administered on 16:32; Start 05/21/16 at 16:15; Stop 05/21/16 at 16:17; Status DC Lidocaine/Sodium Bicarbonate (Buffered Lidocaine 1%) 20 ml 1X ONCE IJ Last administered on 05/21/16 16:32; Start 05/21/16 at 16:15; Stop 05/21/16 at 16:17; Status DC Furosemide (Lasix) 40 mg DAILY IVP Last administered on 05/22/16 09:29; Start 05/21/16 at 17:30 Lorazepam (Ativan) 2 mg PRN Q4HRS PRN IV ANXIETY / AGITATION Last administered on 05/22/16 11:08; Start 05/22/16 at 01:00 Haloperidol Lactate (Haldol) 5 mg Q4HRS PRN IVP AGITATION Last administered on 05/22/16 09:36; Start 05/22/16 at 08:15 Methylprednisolone Sodium Succinate 40 mg 40 mg Q12HR IV ; Start 05/22/16 at 11: 00 Levofloxacin/ Dextrose (LEVAQUIN 750mg PREMIX) 150 ml @ 100 mls/hr Q24H IV ; Start 05/22/16 at 21:00 Lidocaine/Sodium Bicarbonate 20 ml 20 ml STK-MED ONCE IJ ; Start 05/21/16 at 15: 55; Stop 05/22/16 at 11:25; Status DC Heparin Sodium/ Sodium Chloride 500 ml @ As Directed STK-MED ONCE .ROUTE ; Start 05/21/16 at 15:55; Stop 05/22/16 at 11:25; Status DC Active Scripts Active Reported Centrum Women Tablet (Multivitamin/Iron/Folic Acid) 1 Each Tablet 1 Each PO Albuterol Sulfate Neb Soln (Albuterol Sulfate) 0.63 Mg/3 Ml Vial.neb 0.63 Mg NEB PRN Q4HRS PRN Proair Hfa Inhaler (Albuterol Sulfate) 8.5 Gm Hfa.aer.ad 1 Puff INH PRN Q6HRS PRN Lortab 5-325 mg Tablet (Hydrocodone/Acetaminophen) 1 Each Tablet 1-2 Tab PO Q4HRS PRN DURAGESIC 12mcg/hr (Fentanyl) 1 Each Patch.td72 1 Patch TD Q72H Bupropion Hcl 100 Mg Tablet 100 Mg PO Fluoxetine Hcl 40 Mg Capsule 60 Mg PO DAILY Ambien (Zolpidem Tartrate) 10 Mg Tablet 1 Tab PO QHS Vitals/I & O Vital Sign - Last 24 Hours 05/21/16 05/21/16 05/21/16 05/21/16 15:40 15:44 15:50 19:00 Temp 97.7 97.7 97.7 97.7 Pulse 105 110 18 Resp 18 19 22 B/P 164/80 139/82 146/90 Pulse Ox 93 90 96 97 O2 Delivery High Flow Nasal Cannula High Flow Nasal Cannula High Flow Nasal Cannula NonRebreather Mask O2 Flow Rate 15.0 15.0 15.0 15.0 05/21/16 05/21/16 05/21/16 05/21/16 20:00 20:00 20:24 21:02 Resp 20 Pulse Ox 98 86 O2 Delivery Nasal Cannula High Flow Nasal Cannula BiPAP/CPAP O2 Flow Rate 15.0 6.0 6.0 05/21/16 05/21/16 05/21/16 05/21/16 22:02 22:57 23:17 23:30 Temp 97.9 97.9 Pulse 117 Resp 22 20 B/P 137/81 Pulse Ox 96 95 100 96 O2 Delivery BiPAP/CPAP BiPAP/CPAP BiPAP/CPAP BiPAP/CPAP 05/22/16 05/22/16 05/22/16 05/22/16 02:37 03:00 07:00 07:48 Temp 98.9 98.9 Pulse 120 114 Resp 18 14 B/P 133/81 137/81 Pulse Ox 96 94 93 93 O2 Delivery NonRebreather Mask BiPAP/CPAP High Flow Nasal Cannula O2 Flow Rate 6.0 05/22/16 05/22/16 05/22/16 05/22/16 08:00 09:00 09:34 11:00 Temp 97.9 97.9 Pulse 137 145 137 Resp 14 B/P 138/78 185/100 138/78 Pulse Ox 97 O2 Delivery Bi-pap BiPAP/CPAP O2 Flow Rate 93.0 05/22/16 11:20 Pulse Ox 93 O2 Delivery High Flow Nasal Cannula O2 Flow Rate 6.0 Intake and Output 05/21/16 05/21/16 05/22/16 15:00 23:00 07:00 Intake Total 100 ml 175 ml 300 ml Output Total 550 ml Balance 100 ml 175 ml -250 ml SHAY POP MD May 22, 2016 12:32
[2016-05-22] MEDS ORDERED: MORPHINE SULFATE 30 ML IV PRN (15:00)
--- NOTE | 2016-05-22 15:04 | PDOC ---
Provider Note Provider Note [address] IV Non-small cell lung cancer of left lower lobe with osseous, adrenal and brain mets at dx. Admitted with respiratory failure. Now NC o2 and rebreather mask with Po2 98%. Had air hunger and agitation now better on narcotics and anxiolytic medications. CT's 04/20/2016 05/10/2016 05/18/2016 reviewed: Increasing size of left lower lobe mass and satellite nodules. CT 05/18/2016 now also had bilateral increased lung density c/w edema or infection. Now Minimally responsive, appears to be comfortable on mask and NC. Impression: Rapidly progressive non-small cell lung cancer with progressive respiratory failure. On maximal supportive therapy with broad spectrum ATB, steroids and diuretic rx. Additional cancer related treatment not beneficial. Patient is DNR/DNI. Comfort measures are central to her terminal condition. Discussed with and family and Cathy Celeste. EZEQUIEL CRAFT MD May 22, 2016 15:04
--- NOTE | 2016-05-22 15:13 | RAD ---
Portable chest, 05/22/2016: History: Lung cancer, pneumonia Comparison is made to a study from 05/17/2016. A right PICC has been inserted extending into the superior aspect of the right atrium. The heart is within normal limits in size. There are moderate bilateral pulmonary infiltrates which have worsened considerably. The underlying pulmonary vascularity is obscured. A central opacity on the left most likely represents the patient's known lung malignancy. No definite pleural fluid is seen on this AP view. IMPRESSION: Worsening bilateral pulmonary infiltrates suggesting pneumonia and/or pulmonary edema.
--- NOTE | 2016-05-22 16:30 | PDOC ---
PROGRESS NOTES Subjective Subjective Pt seen at 8.49 am C/c- f/u of lung ca - pt has confusion Objective Objective Vital Signs Date Time Temp Pulse Resp B/P Pulse Ox O2 Delivery O2 Flow Rate FiO2 05/22/16 15:47 92 High Flow Nasal Cannula 8.0 05/22/16 11:00 97.9 137 14 138/78 97.9 Intake and Output 05/22/16 07:00 Intake Total 575 ml Output Total 550 ml Balance 25 ml Intake Oral 575 ml Output Urine Total 550 ml # Voids 4 Physical Exam Abdomen: No masses Psych/Mental Status: Other (confused) Skin: No rashes Assessment Assessment Problems Medical Problems: (1) Acute respiratory failure with hypoxia Status: Acute (2) Community acquired pneumonia Status: Acute (3) Metastatic lung carcinoma Status: Acute (4) Sepsis Status: Acute (5) Severe protein-calorie malnutrition Status: Acute Assessment/Plan 1. 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 s/p bone biopsy. MRI of the brain reveals mets, agreed with palliative radiation.. However, he clinical condition is worsening with increasing confusion. Agree with DR Last to hold radiation and focus on comfort. 1. Dyspnea progressively worse, likely secondary to lung malignancy. Her oxygen saturations have been dropping. She was admitted to [facility] and started on O2. 2. Bone metastasis. I will plan to initiate Xgeva after completion of palliative radiation therapy. 3. Acute and Chronic resp failure multifactorial advance disease possible pneumonia, AECOPD Comment Review of Relevant I have reviewed the following items yesenia (where applicable) has been applied. Labs Laboratory Tests Test 05/22/16 04:15 White Blood Count 25.8x10^3/uL (4.0-11.0) Red Blood Count 3.69x10^6/uL (3.50-5.40) Hemoglobin 11.1g/dL (12.0-15.5) Hematocrit 34.6% (36.0-47.0) Mean Corpuscular Volume 94fL (79-100) Mean Corpuscular Hemoglobin 30pg (25-35) Mean Corpuscular Hemoglobin Concent 32g/dL (31-37) Red Cell Distribution Width 14.0% (11.5-14.5) Platelet Count 408x10^3/uL (140-400) Neutrophils (%) (Auto) 94% (31-73) Lymphocytes (%) (Auto) 4% (24-48) Monocytes (%) (Auto) 3% (0-9) Eosinophils (%) (Auto) 0% (0-3) Basophils (%) (Auto) 0% (0-3) Neutrophils # (Auto) 24.2x10^3uL (1.8-7.7) Lymphocytes # (Auto) 1.0x10^3/uL (1.0-4.8) Monocytes # (Auto) 0.6x10^3/uL (0.0-1.1) Eosinophils # (Auto) 0.0x10^3/uL (0.0-0.7) Basophils # (Auto) 0.0x10^3/uL (0.0-0.2) Sodium Level 142mmol/L (136-145) Potassium Level 3.6mmol/L (3.5-5.1) Chloride Level 103mmol/L (98-107) Carbon Dioxide Level 31mmol/L (21-32) Anion Gap 8 (6-14) Blood Urea Nitrogen 28mg/dL (7-20) Creatinine 0.9mg/dL (0.6-1.0) Estimated GFR (Cockcroft-Gault) 62.6 Glucose Level 107mg/dL (70-99) Calcium Level 9.3mg/dL (8.5-10.1) Laboratory Tests Test 05/22/16 04:15 White Blood Count 25.8x10^3/uL (4.0-11.0) Red Blood Count 3.69x10^6/uL (3.50-5.40) Hemoglobin 11.1g/dL (12.0-15.5) Hematocrit 34.6% (36.0-47.0) Mean Corpuscular Volume 94fL (79-100) Mean Corpuscular Hemoglobin 30pg (25-35) Mean Corpuscular Hemoglobin Concent 32g/dL (31-37) Red Cell Distribution Width 14.0% (11.5-14.5) Platelet Count 408x10^3/uL (140-400) Neutrophils (%) (Auto) 94% (31-73) Lymphocytes (%) (Auto) 4% (24-48) Monocytes (%) (Auto) 3% (0-9) Eosinophils (%) (Auto) 0% (0-3) Basophils (%) (Auto) 0% (0-3) Neutrophils # (Auto) 24.2x10^3uL (1.8-7.7) Lymphocytes # (Auto) 1.0x10^3/uL (1.0-4.8) Monocytes # (Auto) 0.6x10^3/uL (0.0-1.1) Eosinophils # (Auto) 0.0x10^3/uL (0.0-0.7) Basophils # (Auto) 0.0x10^3/uL (0.0-0.2) Sodium Level 142mmol/L (136-145) Potassium Level 3.6mmol/L (3.5-5.1) Chloride Level 103mmol/L (98-107) Carbon Dioxide Level 31mmol/L (21-32) Anion Gap 8 (6-14) Blood Urea Nitrogen 28mg/dL (7-20) Creatinine 0.9mg/dL (0.6-1.0) Estimated GFR (Cockcroft-Gault) 62.6 Glucose Level 107mg/dL (70-99) Calcium Level 9.3mg/dL (8.5-10.1) Microbiology 05/18/16 Blood Culture - Preliminary, Resulted NO GROWTH AFTER 4 DAYS Medications Current Medications Sodium Chloride (Iv Sodium Chloride 0.9% 1000ml Bag) 1,000 ml @ 1,000 mls/hr Q1H IV Last administered on 05/17/16 16:05; Start 05/17/16 at 15:44; Stop at 16:43; Status DC Albuterol/ Ipratropium (Duoneb) 6 ml 1X ONCE NEB Last administered on 16:11; Start 05/17/16 at 15:45; Stop 05/17/16 at 15:49; Status DC Methylprednisolone Sodium Succinate (Solu-Medrol 125mg Vial) 125 mg 1X ONCE IV Last administered on 05/17/16 16:05; Start 05/17/16 at 15:45; Stop 05/17/16 at 15:49; Status DC Acetaminophen/ Hydrocodone Bitart (Lortab 5/325) may give max of 8 pills/day PRN Q4HRS PRN PO PAIN Last administered on 05/18/16 23:22; Start 05/17/16 at 16:15; Stop 05/19/16 at 08:58; Status DC Ondansetron HCl 4 mg 4 mg PRN Q8HRS PRN IV NAUSEA/VOMITING; Start 05/17/16 at 17:00; Stop 05/18/16 at 16:59; Status DC Sodium Chloride (Iv Sodium Chloride 0.9% 1000ml Bag) 1,000 ml @ 100 mls/hr Q10H IV Last administered on 05/19/16 05:10; Start 05/17/16 at 16:46; Stop at 16:45; Status DC Albuterol/ Ipratropium (Duoneb) 3 ml RTQID NEB Last administered on 05/18/16 16:24; Start 05/17/16 at 20:00; Stop 05/18/16 at 19:59; Status DC Methylprednisolone Sodium Succinate (Solu-Medrol 40mg Vial) 60 mg Q6HRS IV Last administered on 05/19/16 17:06; Start 05/17/16 at 18:00; Stop 05/19/16 at 18 :41; Status DC Levofloxacin/ Dextrose 1 each 1 each PRN DAILY PRN MC SEE COMMENTS; Start 05/17 at 17:15; Stop 05/20/16 at 14:08; Status DC Levofloxacin/ Dextrose (LEVAQUIN 750mg PREMIX) 150 ml @ 100 mls/hr Q24H IV Last administered on 05/19/16 17:07; Start 05/17/16 at 18:00; Stop 05/19/16 at 20 :58; Status DC Fentanyl (Duragesic 12mcg/ Hr Patch) 1 patch Q72H TD Last administered on 23:17; Start 05/17/16 at 23:00; Stop 05/19/16 at 13:54; Status DC Fluoxetine HCl (Prozac) 60 mg DAILY PO Last administered on 05/19/16 07:44; Start 05/18/16 at 09:00; Stop 05/19/16 at 13:52; Status DC Zolpidem Tartrate (Ambien) 5 mg PRN QHS PRN PO INSOMNIA Last administered on 23:20; Start 05/17/16 at 23:00 Bupropion HCl (Wellbutrin) 100 mg DAILY PO Last administered on 05/21/16 08:17 ; Start 05/18/16 at 09:00; Stop 05/22/16 at 14:46; Status DC Zolpidem Tartrate (Ambien) 5 mg QHS PO Last administered on 05/21/16 20:56; Start 05/17/16 at 23:00; Stop 05/22/16 at 14:46; Status DC Gadobutrol (Gadavist) 4.5 mmol 1X ONCE IV Last administered on 05/18/16 11:15 ; Start 05/18/16 at 11:15; Stop 05/18/16 at 11:16; Status DC Iohexol (Omnipaque 300 Mg/ml) 75 ml 1X ONCE IV ; Start 05/18/16 at 13:30; Stop 05/18/16 at 13:31; Status DC Info (Do NOT chart on this entry -- for MONITORING) 1 each PRN DAILY PRN MC SEE COMMENTS; Start 05/18/16 at 13:30; Stop 05/20/16 at 13:29; Status DC Iohexol (Omnipaque 300 Mg/ml) 75 ml 1X ONCE IV ; Start 05/18/16 at 14:15; Stop 05/18/16 at 14:17; Status DC Info (Do NOT chart on this entry -- for MONITORING) 1 each PRN DAILY PRN MC SEE COMMENTS; Start 05/18/16 at 14:30; Stop 05/20/16 at 14:29; Status DC Bisacodyl (Dulcolax Tab) 10 mg PRN DAILY PRN PO CONSTIPATION Last administered on 05/19/16 08:43; Start 05/18/16 at 14:45 Lidocaine/Sodium Bicarbonate (Buffered Lidocaine 1%) 20 ml STK-MED ONCE IJ ; Start 05/18/16 at 15:12; Stop 05/18/16 at 15:13; Status DC Fentanyl Citrate (Fentanyl 2ml Vial) 100 mcg STK-MED ONCE .ROUTE ; Start at 15:49; Stop 05/18/16 at 15:50; Status DC Midazolam HCl (Versed) 2 mg STK-MED ONCE .ROUTE ; Start 05/18/16 at 15:50; Stop 05/18/16 at 15:51; Status DC Heparin Sodium/ Sodium Chloride 1,000 unit 1X ONCE IART Last administered on 16:17; Start 05/18/16 at 16:00; Stop 05/18/16 at 16:12; Status DC Lidocaine/Sodium Bicarbonate (Buffered Lidocaine 1%) 20 ml 1X ONCE IJ Last administered on 05/18/16 16:16; Start 05/18/16 at 16:00; Stop 05/18/16 at 16:12 ; Status DC Midazolam HCl (Versed) 1 mg 1X ONCE IV Last administered on 05/18/16 16:13; Start 05/18/16 at 16:00; Stop 05/18/16 at 16:12; Status DC Fentanyl Citrate (Fentanyl 2ml Vial) 50 mcg 1X ONCE IV Last administered on 16:13; Start 05/18/16 at 16:00; Stop 05/18/16 at 16:12; Status DC Hydromorphone HCl (Dilaudid) 0.5 mg PRN Q2HR PRN IVP PAIN Last administered on 05/22/16 15:02; Start 05/18/16 at 16:30 Acetaminophen/ Hydrocodone Bitart (Lortab 5/325) 1 tab for pain 5-7 2 tabs ... PRN Q4HRS PRN PO PAIN; Start 05/18/16 at 17:15; Stop 05/19/16 at 08:59; Status DC Non-Formulary Medication 0.63 mg PRN Q4HRS PRN NEB WHEEZING; Start 05/18/16 at 17:15; Stop 05/18/16 at 17:22; Status DC Enoxaparin Sodium (Lovenox 40mg Syringe) 40 mg Q24H SQ Last administered on 05/21 16:51; Start 05/18/16 at 18:00 Pantoprazole Sodium (Protonix) 40 mg DAILYAC PO Last administered on 05/21/16 08:15; Start 05/18/16 at 17:30; Stop 05/22/16 at 12:30; Status DC Albuterol Sulfate (Ventolin Neb Soln) 2.5 mg PRN Q4HRS PRN NEB SHORTNESS OF BREATH Last administered on 05/20/16 00:28; Start 05/18/16 at 17:30 Fluoxetine HCl (Prozac) 20 mg STK-MED ONCE .ROUTE ; Start 05/19/16 at 07:37; Stop 05/19/16 at 07:38; Status DC Albuterol/ Ipratropium (Duoneb) 3 ml RTQID NEB Last administered on 05/22/16 15 :46; Start 05/19/16 at 09:00 Acetaminophen/ Hydrocodone Bitart (Lortab 5/325) 1 tab PRN Q4HRS PRN PO 1 tab for pain 5-7 Last administered on 05/20/16 06:24; Start 05/19/16 at 08:59 Acetaminophen/ Hydrocodone Bitart (Lortab 5/325) 2 tab PRN Q4HRS PRN PO PAIN LEVEL 8-10 Last administered on 05/21/16 21:02; Start 05/19/16 at 09:15; Stop 05/22/16 at 14:46; Status DC Dexamethasone (Decadron) 2 mg BID PO ; Start 05/19/16 at 21:00; Stop 05/19/16 at 21:00; Status DC Dexamethasone (Decadron) 2 mg BID PO Last administered on 05/21/16 20:56; Start 05/19/16 at 09:30; Stop 05/22/16 at 12:30; Status DC Fluoxetine HCl (Prozac) 60 mg DAILY PO Last administered on 05/21/16 08:15; Start 05/20/16 at 09:00; Stop 05/22/16 at 14:46; Status DC Fentanyl (Duragesic 12mcg/ Hr Patch) 1 patch Q72H TD Last administered on 08:18; Start 05/20/16 at 09:00 Alprazolam (Xanax) 1 mg PRN Q8HRS PRN PO ANXIETY / AGITATION Last administered on 05/21/16 20:56; Start 05/19/16 at 14:15; Stop 05/22/16 at 14:46; Status DC Methylprednisolone Sodium Succinate (Solu-Medrol 40mg Vial) 60 mg BID IV Last administered on 05/21/16 08:17; Start 05/19/16 at 21:00; Stop 05/21/16 at 10:21; Status DC Levofloxacin (Levaquin) 500 mg DAILY06 PO Last administered on 05/22/16 05:15; Start 05/20/16 at 06:00; Stop 05/22/16 at 10:47; Status DC Lisinopril (Prinivil) 10 mg 1X ONCE PO Last administered on 05/20/16 08:16; Start 05/20/16 at 07:00; Stop 05/20/16 at 07:01; Status DC Hydralazine HCl (Apresoline) 10 mg PRN Q4HRS PRN IVP ELEVATED BP, SEE COMMENTS Last administered on 05/22/16 09:34; Start 05/20/16 at 10:15 Lisinopril (Prinivil) 20 mg DAILY PO Last administered on 05/21/16 08:16; Start 05/20/16 at 11:00; Stop 05/21/16 at 10:21; Status DC Furosemide (Lasix) 40 mg 1X ONCE IVP Last administered on 05/20/16 14:40; Start 05/20/16 at 15:00; Stop 05/20/16 at 15:01; Status DC Lisinopril (Prinivil) 40 mg DAILY PO ; Start 05/22/16 at 09:00; Stop 05/22/16 at 14:46; Status DC Prednisone (Prednisone) 40 mg DAILY PO Last administered on 05/21/16 11:04; Start 05/21/16 at 11:00; Stop 05/22/16 at 10:47; Status DC Heparin Sodium/ Sodium Chloride 1,000 unit 1X ONCE IART Last administered on 16:32; Start 05/21/16 at 16:15; Stop 05/21/16 at 16:17; Status DC Lidocaine/Sodium Bicarbonate (Buffered Lidocaine 1%) 20 ml 1X ONCE IJ Last administered on 05/21/16 16:32; Start 05/21/16 at 16:15; Stop 05/21/16 at 16:17; Status DC Furosemide (Lasix) 40 mg DAILY IVP Last administered on 05/22/16 09:29; Start 05/21/16 at 17:30 Lorazepam (Ativan) 2 mg PRN Q4HRS PRN IV ANXIETY / AGITATION Last administered on 05/22/16 11:08; Start 05/22/16 at 01:00 Haloperidol Lactate (Haldol) 5 mg Q4HRS PRN IVP AGITATION Last administered on 05/22/16 16:12; Start 05/22/16 at 08:15 Methylprednisolone Sodium Succinate 40 mg 40 mg Q12HR IV Last administered on 12:22; Start 05/22/16 at 11:00 Levofloxacin/ Dextrose (LEVAQUIN 750mg PREMIX) 150 ml @ 100 mls/hr Q24H IV ; Start 05/22/16 at 21:00 Lidocaine/Sodium Bicarbonate 20 ml 20 ml STK-MED ONCE IJ ; Start 05/21/16 at 15: 55; Stop 05/22/16 at 11:25; Status DC Heparin Sodium/ Sodium Chloride 500 ml @ As Directed STK-MED ONCE .ROUTE ; Start 05/21/16 at 15:55; Stop 05/22/16 at 11:25; Status DC Pantoprazole Sodium 40 mg 40 mg DAILYAC IVP ; Start 05/23/16 at 07:30 Morphine Sulfate (Morphine 30 Mg/ 30 ml TELEVISION REPORTER) 30 ml @ 0 mls/hr CONT PRN PRN IV PROTOCOL; Start 05/22/16 at 15:00 Active Scripts Active Reported Centrum Women Tablet (Multivitamin/Iron/Folic Acid) 1 Each Tablet 1 Each PO Albuterol Sulfate Neb Soln (Albuterol Sulfate) 0.63 Mg/3 Ml Vial.neb 0.63 Mg NEB PRN Q4HRS PRN Proair Hfa Inhaler (Albuterol Sulfate) 8.5 Gm Hfa.aer.ad 1 Puff INH PRN Q6HRS PRN Lortab 5-325 mg Tablet (Hydrocodone/Acetaminophen) 1 Each Tablet 1-2 Tab PO Q4HRS PRN DURAGESIC 12mcg/hr (Fentanyl) 1 Each Patch.td72 1 Patch TD Q72H Bupropion Hcl 100 Mg Tablet 100 Mg PO Fluoxetine Hcl 40 Mg Capsule 60 Mg PO DAILY Ambien (Zolpidem Tartrate) 10 Mg Tablet 1 Tab PO QHS Vitals/I & O Vital Sign - Last 24 Hours 05/21/16 05/21/16 05/21/16 05/21/16 19:00 20:00 20:00 20:24 Temp 97.7 97.7 Pulse 18 Resp 22 B/P 146/90 Pulse Ox 97 98 O2 Delivery NonRebreather Mask Nasal Cannula High Flow Nasal Cannula O2 Flow Rate 15.0 15.0 6.0 6.0 05/21/16 05/21/16 05/21/16 05/21/16 21:02 22:02 22:57 23:17 Temp 97.9 97.9 Pulse 117 Resp 20 22 20 B/P 137/81 Pulse Ox 86 96 95 100 O2 Delivery BiPAP/CPAP BiPAP/CPAP BiPAP/CPAP BiPAP/CPAP 05/21/16 05/22/16 05/22/16 05/22/16 23:30 02:37 03:00 07:00 Temp 98.9 98.9 Pulse 120 114 Resp 18 14 B/P 133/81 137/81 Pulse Ox 96 96 94 93 O2 Delivery BiPAP/CPAP NonRebreather Mask BiPAP/CPAP 05/22/16 05/22/16 05/22/16 05/22/16 07:48 08:00 08:00 09:00 Pulse 137 B/P 138/78 Pulse Ox 93 O2 Delivery High Flow Nasal Cannula Bi-pap O2 Flow Rate 6.0 6.0 05/22/16 05/22/16 05/22/16 05/22/16 09:34 11:00 11:20 12:24 Temp 97.9 97.9 Pulse 145 137 Resp 14 B/P 185/100 138/78 Pulse Ox 97 93 93 O2 Delivery BiPAP/CPAP High Flow Nasal Cannula O2 Flow Rate 93.0 6.0 6.0 05/22/16 05/22/16 05/22/16 13:35 15:02 15:47 Pulse Ox 93 93 92 O2 Delivery High Flow Nasal Cannula High Flow Nasal Cannula O2 Flow Rate 6.0 6.0 8.0 Intake and Output 05/21/16 05/21/16 05/22/16 15:00 23:00 07:00 Intake Total 100 ml 175 ml 300 ml Output Total 550 ml Balance 100 ml 175 ml -250 ml DERICK RIDDLE MD May 22, 2016 16:30
[2016-05-22] MEDS ORDERED: IV NORMAL SALINE 1000ML BAG 1,000 ML IV SCH (17:28)
[2016-05-22] MEDS ORDERED: MORPHINE SULFATE 30 ML IV SCH (17:30)
--- NOTE | 2016-05-22 17:45 | PDOC2 ---
PALLIATIVE CARE Palliative Care Note Palliative Care Patient with rapid decline throughout night. Seen at 0900 this am. Pt restless on non-rebreather and Oxygen 4L NC with sat remaining upper 80"s Patient had received Haldol 5mg and Ativan 2mg throughout night with little relief of restlessness Dilaudid 0.5mg given with good relief of pain. Patient oxygen sats increased to mid 90's Family friend at bedside. Spoke with Gerardo per phone at 1030. Reviewed medical condition. Discussed Code Status: Gerardo requested DNR/DNI. Understands without this attempt she likely would . Understands patient is declining Meeting arranged with Dr. Last to discuss plan of care and review scans. Spoke with Luranjana / son at 1029. and again 1303 and 1424. Included on review with Dr. Last per phone. Jhonny to arrive in [facility] After review of patient's condition decision was to change to comfort care. Spoke with Dr. Anderson. Will start Morphine 2mg gtt. per orders. Plan: Comfort Care Will review with family again tomorrow. DIEGO DOOLEY May 22, 2016 17:45
[2016-05-22] MEDS: ENOXAPARIN 40 MG/0.4 ML SYRINGE. SQ SCH (18:00)
[2016-05-22 19:50] VITALS: BP 161/108
[2016-05-22] MEDS ORDERED: DIPHENHYDRAMINE 50 MG/ML VIAL. IVP ONE ×2 (22:30)
[2016-05-22] MEDS ORDERED: LORAZEPAM 2 MG/ML VIAL. IV ONE (22:30)
[2016-05-23] MEDS: LORAZEPAM 2 MG/ML VIAL. IV PRN ×6 (00:34→10:49)
[2016-05-23] MEDS: MORPHINE SULFATE 30 ML IV PRN ×2 (06:09→13:37)
[2016-05-23 07:00] VITALS: BP 139/69
[2016-05-23] MEDS ORDERED: PANTOPRAZOLE IV PUSH 40 MG VIAL. IVP SCH (07:30)
[2016-05-23] MEDS: IPRATRPIUM/ALBUTEROL 0.5/2.5MG 3 ML NEBU. NEB SCH ×2 (07:33→11:20)
[2016-05-23] MEDS: FUROSEMIDE 40 MG/4 ML VIAL. IVP SCH (08:41)
[2016-05-23] MEDS: methylPREDNISolone SOD SUCC PF 40 MG/ML VIAL. IV SCH (08:48)
[2016-05-23] MEDS: FENTANYL 12 MCG/HR TD SCH (09:00)
--- NOTE | 2016-05-23 09:23 | PDOC ---
PULMONARY PROGRESS NOTES Subjective unresponsive on 100%FIO2 Vitals Vital Signs Date Time Temp Pulse Resp B/P Pulse Ox O2 Delivery O2 Flow Rate FiO2 05/23/16 07:33 89 High Flow Nasal Cannula 8.0 05/23/16 07:00 98.5 120 20 139/69 98.5 General: Lethargic Lungs: Other (bl coarse bs) Cardiovascular: S1, S2 Abdomen: Soft Extremities: No Edema Skin: Warm Labs Laboratory Tests Test 05/22/16 04:15 White Blood Count 25.8x10^3/uL (4.0-11.0) Red Blood Count 3.69x10^6/uL (3.50-5.40) Hemoglobin 11.1g/dL (12.0-15.5) Hematocrit 34.6% (36.0-47.0) Mean Corpuscular Volume 94fL (79-100) Mean Corpuscular Hemoglobin 30pg (25-35) Mean Corpuscular Hemoglobin Concent 32g/dL (31-37) Red Cell Distribution Width 14.0% (11.5-14.5) Platelet Count 408x10^3/uL (140-400) Neutrophils (%) (Auto) 94% (31-73) Lymphocytes (%) (Auto) 4% (24-48) Monocytes (%) (Auto) 3% (0-9) Eosinophils (%) (Auto) 0% (0-3) Basophils (%) (Auto) 0% (0-3) Neutrophils # (Auto) 24.2x10^3uL (1.8-7.7) Lymphocytes # (Auto) 1.0x10^3/uL (1.0-4.8) Monocytes # (Auto) 0.6x10^3/uL (0.0-1.1) Eosinophils # (Auto) 0.0x10^3/uL (0.0-0.7) Basophils # (Auto) 0.0x10^3/uL (0.0-0.2) Sodium Level 142mmol/L (136-145) Potassium Level 3.6mmol/L (3.5-5.1) Chloride Level 103mmol/L (98-107) Carbon Dioxide Level 31mmol/L (21-32) Anion Gap 8 (6-14) Blood Urea Nitrogen 28mg/dL (7-20) Creatinine 0.9mg/dL (0.6-1.0) Estimated GFR (Cockcroft-Gault) 62.6 Glucose Level 107mg/dL (70-99) Calcium Level 9.3mg/dL (8.5-10.1) Medications Active Scripts Medications Dose Route/Sig Days Date Category Albuterol Sulfate Neb Soln (Albuterol Sulfate) 0.63 Mg/3 Ml Vial.neb 0.63 Mg NEB PRN Q4HRS PRN 05/17/16 Reported Proair Hfa Inhaler (Albuterol Sulfate) 8.5 Gm Hfa.aer.ad 1 Puff INH PRN Q6HRS PRN 05/17/16 Reported Lortab 5-325 mg Tablet (Hydrocodone/Acetaminophen) 1 Each Tablet 1-2 Tab PO Q4HRS PRN 05/17/16 Reported DURAGESIC 12mcg/hr (Fentanyl) 1 Each Patch.td72 1 Patch TD Q72H 05/17/16 Reported Bupropion Hcl 100 Mg Tablet 100 Mg PO 04/25/16 Reported Fluoxetine Hcl 40 Mg Capsule 60 Mg PO DAILY 04/25/16 Reported Ambien (Zolpidem Tartrate) 10 Mg Tablet 1 Tab PO QHS 04/25/16 Reported Impression . 1. 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 3. Acute and Chronic resp failure multifactorial advance disease possible pneumonia, AECOPD 4. History of tobacco use, quit in April of this year. 5. Anxiety. 6. Depression. 7. NO PE, 8. Possible non cardiogenic edema, could be lymphangitic spread pt with increase jannet Plan . Pt dying d/w daughter. Agree with comfort care only. will d/c NRM once /son gets here and leave only on 2 litres NC not expected to survive today d/w RN TINO AGOSTO MD May 23, 2016 09:23
[2016-05-23] MEDS: HALOPERIDOL LACTATE 5 MG/ML VIAL. IVP PRN (09:30)
--- NOTE | 2016-05-23 14:40 | PDOC2 ---
PALLIATIVE CARE Palliative Care Note Palliative Care Patient seen at 0730. Slightly restless. Daughter in-law at bedside. Morphine 2mg continues gtt. Dr. Hidalgo spoke with family. Goal is comfort care. Discontinued non-rebreather when and sons arrived. Patient bolused with Morphine 4mg IV and continued gtt at 4mg. Oxygen 2L NC Patient comfortable without grimace or restlessness. Family at bedside. Appreciative of care. DIEGO DOOLEY May 23, 2016 14:40
--- NOTE | 2016-05-23 14:55 | PDOC3 ---
Discharge Summary [facility] Date of Admission: May 17, 2016 Discharge Date: May 23, 2016 Admitting Diagnosis 1. COPD exacerbation 2. ? (postobstruct) PNA: levaquin 3. 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 Brain mets: starting XRT next week. decadron 2 bid 5. pain control 6. HTN 7. Depression 8. acute resp failure with 3, 1, and 2 Problems: Final Diagnosis CONSULTS rt onco pulm Brief Hospital Course Ms. Hart is a 65 old F, with non small cell carcinoma mets to mediastinum and brain, comes for sob. She was ok at the beginning waiting for RT. however, she deteriorating fast 2 days ago, PAT consulted, and comfort care on 05/22, morphine drip. with resp failure about 2pm today. family around. General: lethargic Heart: Normal S1, Normal S2 Lungs: Other (bl coarse bs) Abdomen: Normal bowel sounds, No tenderness Extremities: No clubbing Skin: No rashes Problems: CONDITION AT DISCHARGE: / Scheduled Fentanyl (DURAGESIC 12mcg/hr) 1 PATCH TD Q72H (Reported) Fluoxetine Hcl (Fluoxetine Hcl) 60 MG PO DAILY (Reported) Zolpidem Tartrate (Ambien) 1 TAB PO QHS (Reported) Scheduled PRN Albuterol Sulfate (Proair Hfa Inhaler) 1 PUFF INH PRN Q6HRS PRN PRN SHORTNESS OF BREATH (Reported) Albuterol Sulfate (Albuterol Sulfate Neb Soln) 0.63 MG NEB PRN Q4HRS PRN PRN WHEEZING (Reported) Hydrocodone/Acetaminophen (Lortab 5-325 mg Tablet) 1-2 TAB PO Q4HRS PRN PRN PAIN (Reported) Miscellaneous Medications Bupropion Hcl (Bupropion Hcl) 100 MG PO (Reported) Multivitamin/Iron/Folic Acid (Centrum Women Tablet) 1 EACH PO (Reported) SHAY POP MD May 23, 2016 14:55
== END 2016-05-23 14:12 | disposition expired | DRG 987 ==
LOC: ER 15:17 → ED HOLD 16:02 → 6 SOUTH 20:47
PROVIDERS: ADMIT Internal Medicine; ATTEND Internal Medicine
PROC: 0QB03ZX Excision of Lumbar Vertebra, Percutaneous Approach, Diagnostic (ICD-10-PCS; principal; 2016-05-18)
PROC: 02H633Z Insertion of Infusion Device into Right Atrium, Percutaneous Approach (ICD-10-PCS; 2016-05-21)
PROC: B244ZZZ Ultrasonography of Right Heart (ICD-10-PCS; 2016-05-21)
DX: J96.21 Acute and chronic respiratory failure with hypoxia (principal); J18.9 Pneumonia, unspecified organism; E43 Unspecified severe protein-calorie malnutrition; C79.51 Secondary malignant neoplasm of bone; J44.1 Chronic obstructive pulmonary disease with (acute) exacerbation; J44.0 Chronic obstructive pulmonary disease with (acute) lower respiratory infection; C78.1 Secondary malignant neoplasm of mediastinum; C79.31 Secondary malignant neoplasm of brain; C34.90 Malignant neoplasm of unspecified part of unspecified bronchus or lung; C79.70 Secondary malignant neoplasm of unspecified adrenal gland; Z68.22 Body mass index [BMI] 22.0-22.9, adult; F32.9 Major depressive disorder, single episode, unspecified; F41.9 Anxiety disorder, unspecified; I10 Essential (primary) hypertension; K21.9 Gastro-esophageal reflux disease without esophagitis; Z51.5 Encounter for palliative care; Z66 Do not resuscitate; Z79.899 Other long term (current) drug therapy; Z80.1 Family history of malignant neoplasm of trachea, bronchus and lung; Z82.5 Family history of asthma and other chronic lower respiratory diseases; Z85.828 Personal history of other malignant neoplasm of skin; Z87.891 Personal history of nicotine dependence
CPT/HCPCS: 20225; 36415; 36569; 36600; 70553; 71010; 71275; 76937; 76942; 77001; 77290; 77295; 77300; 77334; 80048; 80053; 81001; 82805; 83605; 83690; 85007; 85027; 85610; 87040; 87804; 88307; 88312; 88341; 88342; 93005; 94250; 94640; 94660; 94760; 96361; 96374; C1751; C1892; C9113; J0360; J1170; J1200; J1630; J1650; J1940; J1956; J2060; J2250; J2270; J2920; J2930; J3010; J7030; J7512; J7620; 99285-25; A9585; G0641